=== PATIENT | male | born 2000 | race Caucasian/White ===

== ENCOUNTER 2021-09-18 12:16 | Inpatient (IN) ==
[2021-09-18 14:20] LABS: Hematocrit (blood only) 49.4 % (42-52); Hemoglobin 17.1 g/dL (14.0-18.0); Mean Corpuscular Hemoglobin 31.1 pg (25-34); Mean Corpuscular Hgb Conc 34.6 g/dL (32-36); Mean Platelet Volume 9.1 fL (7.4-10.4); Platelet Count 240 K/uL (130-400); RDW Coefficient of Variation 12.2 % (11.5-14.5); RDW Standard Deviation 40.4 fL (36.4-46.3); Red Blood Count 5.49 M/uL (4.7-6.1); White Blood Count 5.19 K/uL (4.8-10.8)
[2021-09-18 14:45] LABS: Albumin Level 4.3 gm/dl (3.4-5.0); BUN Creatinine Ratio 15.5 (10-20); Basophils # (auto) 0.03 K/uL (0-0.2); Basophils % (auto) 0.6 %; Calcium 9.5 mg/dl (8.5-10.1); Creatinine Clr Calc Pharmacy 125.7 ml/min; Eosinophils # (auto) 0.13 K/uL (0-0.5); Eosinophils % (auto) 2.5 %; Est GFR (African American) 145.4 ml/min; Est GFR (Non-African American) 125.4 ml/min; Lymphocytes # (auto) 2.71 K/uL (1.2-3.4); Lymphocytes % (auto) 52.2 %; Monocytes # (auto) 0.28 K/uL (0.11-0.59); Monocytes % (auto) 5.4 %; Neutrophils # (auto) 2.04 K/uL (1.4-6.5); Neutrophils % (auto) 39.3 %
[2021-09-18 14:50] LABS: Amphetamines+Metham, Urine Neg (Neg); Barbiturates, Urine Neg (Neg); Benzodiazepine, Urine Neg (Neg); Cocaine, Urine Neg (Neg); MDMA (Ecstacy), Urine Neg (Neg); Methadone, Urine Neg (Neg); Opiate, Urine Neg (Neg); Phencyclidine, Urine Neg (Neg)
[2021-09-18 14:55] LABS: Appearance Urine Turbid (Clear); Bacteria Urine Automated Negative (Negative); Bilirubin Urine Negative (Negative); Blood Urine Negative (Negative); Color Urine Yellow; Glucose Urine UA Negative (Negative); Ketones Urine Negative (Negative); Leukocyte Esterase Urine Negative (Negative); Nitrite Urine Negative (Negative); Protein Urine Negative (Negative); RBC Urine Automated 0-4 /hpf (0-4); Urobilinogen Urine Negative (Negative); pH Urine 8.5 (4.5-7.5)
[2021-09-18 14:55] LABS: Albumin Globulin Ratio 1.2 (0.9-2); Bilirubin,Total 0.6 mg/dl (0.2-1); Globulin 3.7 gm/dl (2.5-4.0); Thyroid Stimulating Hormone 0.877 uIu/ml (0.300-4.500)
[2021-09-18 15:26] LABS: Acetaminophen < 2 ug/ml (10-30)
[2021-09-18 15:27] LABS: Salicylate < 1.7 mg/dl (2.8-20)
--- NOTE | 2021-09-18 15:42 | Emergency Department Note ---
Impression & Plan Depression with suicidal ideation ED Provider Note Provider: Mathew Meléndez MD DATE OF SERVICE: 09/18/2021 CHIEF COMPLAINT: Suicide attempt, depression HISTORY OF PRESENT ILLNESS: Patient is a 21-year-old gentleman history of anxiety depression reporting issues over the past several years. [employer] student. States some stress from class as well as other issues and he attempted to hang himself last night. Patient reports that he got his belt and wanted the shower and was testing to see if he could hang himself there. Patient states he then called out to a friend who came and was with him and he did not proceed further. Patient states he done little bit of self cutting on his wrist this was minimal and has a minimal history of this. Patient relays a history of suicide attempt in the past but no history of inpatient psychiatric treatment. Patient does currently have an outpatient psychiatrist and therapist. Patient states he does not have any homicidal thoughts or hallucinations. Patient reports that he did not feel safe today so called his mother has been with him t daphne. Patient states he does not feel safe to be alone and believes he needs inpatient treatment. Patient states he was sleeping more than normal and school is not going well at the current time. REVIEW OF SYSTEMS: A total of 10 review of systems was obtained and negative except as stated above in the HPI. PAST MEDICAL HISTORY: As noted above MEDICATIONS: Effexor, Zyrtec SOCIAL HISTORY: [employer] [facility] student, denies drug or alcohol use PHYSICAL EXAM: GENERAL: alert and oriented in no acute distress on stretcher Head: normocephalic and atraumatic EYES: No injection, discharge or icterus. NECK: Trachea midline. Supple without crepitus, tenderness, or contusion. No bruit appreciated. ENT: Mucous membranes pink and moist. LUNGS: Airway patent. No retractions. Breath sounds clear HEART: Regular rate and rhythm. No chest wall tenderness SKIN: Acyanotic, warm, dry, without rashes EXTREMITIES: Without swelling, tenderness or deformity NEUROLOGICAL: No focal deficits. No aphasia. No facial droop or slurred speech. Ambulatory. Psych: Patient endorses SI but denies HI or hallucinations. Not responding to external stimuli. Mildly flat affect. Patient's laboratory studies and imaging reviewed. Differential includes Mood disorder, infection, hypoglycemia, electrolyte abnormalities, cardiac sources, intracerebral event, toxicologic, trauma, neurologic, as well as other pathologies. IMPRESSION/MEDICAL DECISION MAKING: Patient with plan and asked furtherance last night possible pain but did not proceed with this. No evidence of neck trauma or bruit on exam and it does not sound like he actually had any significant hanging. He is swallowing and talking normally. Basic labs without significant abnormality. Patient wishing for inpatient treatment and I believe is indicated given the severity in light of last night's events. No homicidal ideations reported. Seen with the director of casework services. Inpatient psychiatric referrals will be sent. Do believe there are 3 2 g of the patient does change his mind from voluntary admission. Accepted 3 S. for further inpatient care. DIAGNOSIS: Depression with suicidal ideation DISPOSITION: Accepted 3 S. for further inpatient care. 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 Beliefs That Will Affect Care: None Current Living Situation: Other Current Living Situation Comment: off campus, has roommates Feels Safe at Home: Yes Assistive Devices: Glasses Allergies Allergies Allergy/AdvReac Type Severity Reaction Status Date / Time No Known Allergies Allergy Verified 08/27/20 10:16 Home Meds Home Medications Medication Instructions Recorded Confirmed propranolol 10 mg tablet 10 mg 09/18/21 venlafaxine 75 mg capsule,extended 75 mg PO 09/18/21 release 24 hr (Effexor XR) Results & Data (ED) Vital Signs Vital Signs - 24 hr 09/18/21 12:22 09/18/21 18:40 Temperature 36.5 C Temperature Source Skin Pulse Rate 84 90 Pulse Rhythm Regular Pulse Strength Normal Respiratory Rate 20 20 Respiratory Effort / Characteristics Non-Labored Spontaneous Respiratory Depth Normal Respiratory Pattern Regular Blood Pressure 135/87 124/76 Blood Pressure Mean 103 Pulse Oximetry 98 96 Oxygen Delivery Method Room Air Room Air Sepsis Recent Fever Within 48 Hours No Sepsis New/Unexplained Change in Mental Status N/A Sepsis Action Taken by Nursing No Action Required Laboratory Data Result diagrams: 09/18/21 14:11 09/18/21 14:11 Lab Results 09/18/21 09/18/21 09/18/21 Range/Units 14:11 14:11 14:11 WBC 5.19 (4.8-10.8) K/uL RBC 5.49 (4.7-6.1) M/uL Hgb 17.1 (14.0-18.0) g/dL Hct 49.4 (42-52) % MCV 90.0 (80-100) fL MCH 31.1 (25-34) pg MCHC 34.6 (32-36) g/dL RDW Std Deviation 40.4 (36.4-46.3) fL RDW Coeff of Emil 12.2 (11.5-14.5) % Plt Count 240 (130-400) K/uL MPV 9.1 (7.4-10.4) fL Immature Gran % (Auto) 0.0 % Neut % (Auto) 39.3 % Lymph % (Auto) 52.2 % [place] % (Auto) 5.4 % Eos % (Auto) 2.5 % Baso % (Auto) 0.6 % Neut # (Auto) 2.04 (1.4-6.5) K/uL Lymph # (Auto) 2.71 (1.2-3.4) K/uL [place] # (Auto) 0.28 (0.11-0.59) K/uL Eos # (Auto) 0.13 (0-0.5) K/uL Baso # (Auto) 0.03 (0-0.2) K/uL Immature Gran # (Auto) 0.00 (0.00-0.02) K/uL Sodium 137 (136-145) mmol/L Potassium 4.0 (3.5-5.1) mmol/L Chloride 104 (98-107) mmol/L Carbon Dioxide 27 (21-32) mmol/L Anion Gap 6.0 (3-11) BUN 13 (7-18) mg/dl Creatinine 0.85 (0.6-1.4) mg/dl Est Cr Clr Drug Dosing 125.7 ml/min Est GFR ( Amer) 145.4 ml/min Est GFR (Non-Af Amer) 125.4 ml/min BUN/Creatinine Ratio 15.5 (10-20) Glucose 93 (70-99) mg/dl Calcium 9.5 (8.5-10.1) mg/dl Total Bilirubin 0.6 (0.2-1) mg/dl AST 15 (15-37) U/L ALT 26 (12-78) U/L Alkaline Phosphatase 124 H (45-117) U/L Total Protein 8.0 (6.4-8.2) gm/dl Albumin 4.3 (3.4-5.0) gm/dl Globulin 3.7 (2.5-4.0) gm/dl Albumin/Globulin Ratio 1.2 (0.9-2) TSH 0.877 (0.300-4.500) uIu/ml Urine Color Urine Appearance (Clear) Urine pH (4.5-7.5) Ur Specific [place] (1.000-1.030) Urine Protein (Negative) Urine Glucose (UA) (Negative) Urine Ketones (Negative) Urine Blood (Negative) Urine Nitrite (Negative) Urine Bilirubin (Negative) Urine Urobilinogen (Negative) Ur Leukocyte Esterase (Negative) Urine WBC (Auto) (0-5) /hpf Urine RBC (Auto) (0-4) /hpf U Hyaline Cast (Auto) (0-5) /lpf U Epithel Cells (Auto) (0-5) /lpf Urine Bacteria (Auto) (Negative) Salicylates < 1.7 L (2.8-20) mg/dl Urine Opiates Screen (Neg) Ur Methadone, Qual (Neg) Acetaminophen < 2 L (10-30) ug/ml Urine Barbiturates (Neg) Ur Phencyclidine (PCP) (Neg) U Amphetamin/Meth Scrn (Neg) MDMA (Ecstasy) Screen (Neg) U Benzodiazepines Scrn (Neg) Ur Cocaine Metabolite (Neg) U Marijuana (THC) Screen (Neg) Ethyl Alcohol mg/dL (0-3) mg/dl COVID-19 Eval Order SARS-CoV-2 (PCR) (Negative) 09/18/21 09/18/21 09/18/21 Range/Units 14:11 14:12 14:12 WBC (4.8-10.8) K/uL RBC (4.7-6.1) M/uL Hgb (14.0-18.0) g/dL Hct (42-52) % MCV (80-100) fL MCH (25-34) pg MCHC (32-36) g/dL RDW Std Deviation (36.4-46.3) fL RDW Coeff of Emil (11.5-14.5) % Plt Count (130-400) K/uL MPV (7.4-10.4) fL Immature Gran % (Auto) % Neut % (Auto) % Lymph % (Auto) % [place] % (Auto) % Eos % (Auto) % Baso % (Auto) % Neut # (Auto) (1.4-6.5) K/uL Lymph # (Auto) (1.2-3.4) K/uL [place] # (Auto) (0.11-0.59) K/uL Eos # (Auto) (0-0.5) K/uL Baso # (Auto) (0-0.2) K/uL Immature Gran # (Auto) (0.00-0.02) K/uL Sodium (136-145) mmol/L Potassium (3.5-5.1) mmol/L Chloride (98-107) mmol/L Carbon Dioxide (21-32) mmol/L Anion Gap (3-11) BUN (7-18) mg/dl Creatinine (0.6-1.4) mg/dl Est Cr Clr Drug Dosing ml/min Est GFR ( Amer) ml/min Est GFR (Non-Af Amer) ml/min BUN/Creatinine Ratio (10-20) Glucose (70-99) mg/dl Calcium (8.5-10.1) mg/dl Total Bilirubin (0.2-1) mg/dl AST (15-37) U/L ALT (12-78) U/L Alkaline Phosphatase (45-117) U/L Total Protein (6.4-8.2) gm/dl Albumin (3.4-5.0) gm/dl Globulin (2.5-4.0) gm/dl Albumin/Globulin Ratio (0.9-2) TSH (0.300-4.500) uIu/ml Urine Color Yellow Urine Appearance Turbid A (Clear) Urine pH 8.5 H (4.5-7.5) Ur Specific [place] 1.020 (1.000-1.030) Urine Protein Negative (Negative) Urine Glucose (UA) Negative (Negative) Urine Ketones Negative (Negative) Urine Blood Negative (Negative) Urine Nitrite Negative (Negative) Urine Bilirubin Negative (Negative) Urine Urobilinogen Negative (Negative) Ur Leukocyte Esterase Negative (Negative) Urine WBC (Auto) 1-5 (0-5) /hpf Urine RBC (Auto) 0-4 (0-4) /hpf U Hyaline Cast (Auto) 1-5 (0-5) /lpf U Epithel Cells (Auto) 10-20 H (0-5) /lpf Urine Bacteria (Auto) Negative (Negative) Salicylates (2.8-20) mg/dl Urine Opiates Screen Neg (Neg) Ur Methadone, Qual Neg (Neg) Acetaminophen (10-30) ug/ml Urine Barbiturates Neg (Neg) Ur Phencyclidine (PCP) Neg (Neg) U Amphetamin/Meth Scrn Neg (Neg) MDMA (Ecstasy) Screen Neg (Neg) U Benzodiazepines Scrn Neg (Neg) Ur Cocaine Metabolite Neg (Neg) U Marijuana (THC) Screen Neg (Neg) Ethyl Alcohol mg/dL < 3.0 (0-3) mg/dl COVID-19 Eval Order SARS-CoV-2 (PCR) (Negative) 09/18/21 09/18/21 Range/Units 16:04 16:04 WBC (4.8-10.8) K/uL RBC (4.7-6.1) M/uL Hgb (14.0-18.0) g/dL Hct (42-52) % MCV (80-100) fL MCH (25-34) pg MCHC (32-36) g/dL RDW Std Deviation (36.4-46.3) fL RDW Coeff of Emil (11.5-14.5) % Plt Count (130-400) K/uL MPV (7.4-10.4) fL Immature Gran % (Auto) % Neut % (Auto) % Lymph % (Auto) % [place] % (Auto) % Eos % (Auto) % Baso % (Auto) % Neut # (Auto) (1.4-6.5) K/uL Lymph # (Auto) (1.2-3.4) K/uL [place] # (Auto) (0.11-0.59) K/uL Eos # (Auto) (0-0.5) K/uL Baso # (Auto) (0-0.2) K/uL Immature Gran # (Auto) (0.00-0.02) K/uL Sodium (136-145) mmol/L Potassium (3.5-5.1) mmol/L Chloride (98-107) mmol/L Carbon Dioxide (21-32) mmol/L Anion Gap (3-11) BUN (7-18) mg/dl Creatinine (0.6-1.4) mg/dl Est Cr Clr Drug Dosing ml/min Est GFR ( Amer) ml/min Est GFR (Non-Af Amer) ml/min BUN/Creatinine Ratio (10-20) Glucose (70-99) mg/dl Calcium (8.5-10.1) mg/dl Total Bilirubin (0.2-1) mg/dl AST (15-37) U/L ALT (12-78) U/L Alkaline Phosphatase (45-117) U/L Total Protein (6.4-8.2) gm/dl Albumin (3.4-5.0) gm/dl Globulin (2.5-4.0) gm/dl Albumin/Globulin Ratio (0.9-2) TSH (0.300-4.500) uIu/ml Urine Color Urine Appearance (Clear) Urine pH (4.5-7.5) Ur Specific [place] (1.000-1.030) Urine Protein (Negative) Urine Glucose (UA) (Negative) Urine Ketones (Negative) Urine Blood (Negative) Urine Nitrite (Negative) Urine Bilirubin (Negative) Urine Urobilinogen (Negative) Ur Leukocyte Esterase (Negative) Urine WBC (Auto) (0-5) /hpf Urine RBC (Auto) (0-4) /hpf U Hyaline Cast (Auto) (0-5) /lpf U Epithel Cells (Auto) (0-5) /lpf Urine Bacteria (Auto) (Negative) Salicylates (2.8-20) mg/dl Urine Opiates Screen (Neg) Ur Methadone, Qual (Neg) Acetaminophen (10-30) ug/ml Urine Barbiturates (Neg) Ur Phencyclidine (PCP) (Neg) U Amphetamin/Meth Scrn (Neg) MDMA (Ecstasy) Screen (Neg) U Benzodiazepines Scrn (Neg) Ur Cocaine Metabolite (Neg) U Marijuana (THC) Screen (Neg) Ethyl Alcohol mg/dL (0-3) mg/dl COVID-19 Eval Order Covid19 at [facility] SARS-CoV-2 (PCR) NEGATIVE (Negative) Discharge Plan Visit Data Chief Complaint: Mental Health Evaluation Stated Complaint: MENTAL HEALTH EVAL ED Provider: Mathew Meléndez Discharge Problem: Depression with suicidal ideation Patient Disposition: Admitted As Inpatient Discharge Instructions Interventions: ED Discharge Assessment Last Done: 09/18/21 18:59
[2021-09-18] MEDS ORDERED: hydrOXYzine HCl 25 MG TAB PO PRN (18:14)
[2021-09-18] MEDS ORDERED: ALUMINUM/MAGNESIUM SUSP 30 ML UDC PO PRN (18:14)
[2021-09-18] MEDS ORDERED: ACETAMINOPHEN 325 MG TAB PO PRN (18:14)
[2021-09-18] MEDS ORDERED: BISMUTH SUBSALICYLATE LIQD 236 ML PO PRN (18:14)
[2021-09-18] MEDS ORDERED: MAGNESIUM HYDROXIDE SUSP 30 ML UDC PO PRN (18:14)
[2021-09-18] MEDS ORDERED: SODIUM CHLORIDE 0.65% NA SOLN 45 ML (OCEAN) PRN (18:14)
[2021-09-18] MEDS ORDERED: FLUARIX QUADRIVALENT 0.5 ML SYR IM ONE (20:33)
[2021-09-19] MEDS ORDERED: PROPRANOLOL HCL 10 MG TAB PO PRN (10:40)
[2021-09-19] MEDS: VENLAFAXINE HCL XR 37.5 MG CAPXR PO SCH (11:29)
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
[2021-09-19] MEDS: hydrOXYzine HCl 25 MG TAB PO PRN (22:02)
[2021-09-20] MEDS: VENLAFAXINE HCL XR 37.5 MG CAPXR PO SCH (08:56)
--- NOTE | 2021-09-20 16:19 | Psychiatric Progress Note ---
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 He has perfectionistic tendencies and conflictual relationship with his father with some criteria for post traumatic stress disorder and concentration difficulties that predate depression that could suggest ADHD but would need to be reassessed on an outpatient basis when recovered from this depressive episode. Diagnostically consistent with MDD and so far tolerating Effexor XR titration. (1) Depression with suicidal ideation: 09/20/21: Increase Effexor XR from 112.5 mg to 150 mg tomorrow morning. Discussed coping skills he can use to manage urges for self-harm including talking to staff. Feels safe on the unit. 09/19/21: The patient was admitted to the [facility] ([facility] mental health unit) on q15 min checks (behavioral with suicide precautions) for safety. The patient will participate in group, recreational, and milieu therapies and will be offered additional individual and family sessions as clinically appropriate. Risks/benefits/alternatives reviewed re: antidepressants for the treatment of depression and/or anxiety. Discussion included but was not limited to FDA warnings re: suicidality in adolescents and young adults. The patient agreed to titrate Effexor XR to 112.5 mg starting today with goal of 150 mg prior to discharge. 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 Chief Complaint "I'm settling in". Review of Systems Sleep Information Total Hours of Sleep: 6.75 Meal Information Percent Meal Consumed - Breakfast: 80 Percent Meal Consumed - Lunch: 80 Percent Meal Consumed - Dinner: 100 Subjective Subjective Patient was seen & assessed and interval progress reviewed with treatment team nursing and social work. He continues to feel depressed with urges to self-harm but has been able to avoid acting on these urges while in the hospital. Using distraction to help with this, also discussed that he could use atarax prn. Tolerating the Effexor well so far and agreeable to increasing the dose starting tomorrow. No current side effects. Physical Exam Psychiatric Orientation: alert and oriented x 3 Apperance: appropriately dressed and appropriately groomed Eye Contact: good eye contact Motor Behavior: no abnormal motor movements Speech: normal rate/rhythm/volume of speech Affect: + depressed affect Mood: + depressed mood Thought Process: goal directed thought process Thought Content: reality based without delusions Suicidal Thoughts: denies suicidal intent; + reports suicidal thoughts and + r eports suicidal plan (cut or hang) Homicidal Thoughts: denies homicidal thoughts Hallucinations: no auditory hallucinations and no visual hallucinations Cognition: attention grossly intact and language grossly intact Estimated Intelligence: consistent with education level Insight: + fair insight Judgement: + fair judgement Vital Signs (Past 24 Hours) Last Vital Signs Temp 36.9 C 09/20/21 06:00 Pulse 75 09/20/21 06:41 Resp 16 09/20/21 06:00 BP 110/75 09/20/21 06:41 Pulse Ox 96 09/18/21 18:40 Results & Data ([facility]) Current Inpatient Medications Current Inpatient Medications: Current Inpatient Medications Acetaminophen (Acetaminophen 325 Mg Tab) 650 mg PO Q4H PRN PRN Reason: Headache or Minor Fever Stop: 10/18/21 18:13 Al Hydrox/Mg Hydrox/Simethicone (Aluminum/Magnesium Susp 30 Ml Udc) 30 ml PO Q4H PRN PRN Reason: GI Upset Stop: 10/18/21 18:13 Bismuth Subsalicylate (Bismuth Subsalicylate Liqd 236 Ml) 15 ml PO PRN PRN PRN Reason: Loose Stool Stop: 10/18/21 18:13 Hydroxyzine HCl (Hydroxyzine Hcl 25 Mg Tab) 50 mg PO HSZ PRN PRN Reason: Insomnia Stop: 10/18/21 18:13 Last Admin: 09/19/21 22:02 Dose: 50 mg Documented by: Hydroxyzine HCl (Hydroxyzine Hcl 25 Mg Tab) 25 mg PO Q4H PRN PRN Reason: Anxiety Stop: 10/18/21 18:13 Magnesium Hydroxide (Magnesium Hydroxide Susp 30 Ml Udc) 30 ml PO DAILY PRN PRN Reason: Constipation Stop: 10/18/21 18:13 Propranolol HCl (Propranolol Hcl 10 Mg Tab) 10 mg PO DAILY PRN PRN Reason: Anxiety Stop: 10/19/21 10:39 Sodium Chloride (Sodium Chloride 0.65% Na Soln 45 Ml ([place])) 1 - 2 sprays NA PRN PRN PRN Reason: Nasal Dryness/Congestion Stop: 10/18/21 18:13 Venlafaxine HCl (Venlafaxine Hcl Xr 37.5 Mg Capxr) 112.5 mg PO DAILY RUFINA Stop: 10/19/21 10:44 Last Admin: 09/20/21 08:56 Dose: 112.5 mg Documented by: Mental Health & Subst Abuse Tx Psychiatrist Name of Psychiatrist: Jinny Chery at [facility] Psychiatrist's Date of Appointment with Psychiatrist: 09/29/21 Time of Appointment with Psychiatrist: 1:15 pm Psychiatric Appointment Comment: This is an in office appointment Therapist Name of Therapist: Olga Donohue at [facility] Therapist's Date of Therapist Appointment: 09/24/21 Time of Therapist Appointment: 10:30 am [facility] App[facility]ment [facility] [address] [facility] [address], [place] [address] Emr Trainer Name of Emr Trainer: N/A Post Discharge Appointments Primary Care Physician Name Of Family Doctor: Tahira Campbell @ [facility] Primary Care Provider Appointment Comment: [facility] [address], [place] [address] Contact Information Discharge Discharge Address: [address], [place]
[2021-09-20] MEDS: hydrOXYzine HCl 25 MG TAB PO PRN (22:32)
[2021-09-21] MEDS: VENLAFAXINE HCL XR 150 MG CAPXR PO SCH (08:50)
--- NOTE | 2021-09-21 15:01 | Psychiatric Progress Note ---
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 He has perfectionistic tendencies and conflictual relationship with his father with some criteria for post traumatic stress disorder and concentration difficulties that predate depression that could suggest ADHD but would need to be reassessed on an outpatient basis when recovered from this depressive episode. Diagnostically consistent with MDD and so far tolerating Effexor XR titration. (1) Depression with suicidal ideation: 09/21/21: Continue with Effexor XR 150 mg qd. Continue to practice coping skills and noticing cognitive distortions. Using distraction to manage urges for self-harm. 09/20/21: Increase Effexor XR from 112.5 mg to 150 mg tomorrow morning. Discussed coping skills he can use to manage urges for self-harm including talking to staff. Feels safe on the unit. 09/19/21: The patient was admitted to the [facility] ([facility] mental health unit) on q15 min checks (behavioral with suicide precautions) for safety. The patient will participate in group, recreational, and milieu therapies and will b e offered additional individual and family sessions as clinically appropriate. Risks/benefits/alternatives reviewed re: antidepressants for the treatment of depression and/or anxiety. Discussion included but was not limited to FDA warnings re: suicidality in adolescents and young adults. The patient agreed to titrate Effexor XR to 112.5 mg starting today with goal of 150 mg prior to discharge. 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 Chief Complaint "I'm not having as many urges for self-harm today". Review of Systems Sleep Information Total Hours of Sleep: 6.75 Meal Information Percent Meal Consumed - Breakfast: 90 Percent Meal Consumed - Lunch: 100 Percent Meal Consumed - Dinner: 80 Subjective Subjective Patient was seen & assessed and interval progress reviewed with treatment team nursing and social work. Giles struggled last night with increased anxiety and strong urges for self-harm. He responded well to 1-on-1 support with discussion of cognitive distortions and strategies to change negative thoughts. Today he reports reduction in urges for self-harm. Continues to have depressed mood. Tolerating Effexor XR well so far without any side effects. Notes he felt some somatic symptoms last night but believes these were due to the high anxiety and panic attack rather than from the Effexor. Physical Exam Psychiatric Orientation: alert and oriented x 3 Apperance: appropriately dressed and appropriately groomed Eye Contact: good eye contact Motor Behavior: no abnormal motor movements Speech: normal rate/rhythm/volume of speech Affect: + depressed affect Mood: + depressed mood Thought Process: goal directed thought process Thought Content: reality based without delusions Suicidal Thoughts: denies suicidal thoughts Homicidal Thoughts: denies homicidal thoughts Hallucinations: no auditory hallucinations and no visual hallucinations Cognition: attention grossly intact and language grossly intact Estimated Intelligence: consistent with education level Insight: + fair insight Judgement: + fair judgement Vital Signs (Past 24 Hours) Last Vital Signs Temp 36.4 C L 09/21/21 06:00 Pulse 71 09/21/21 06:33 Resp 16 09/21/21 06:00 BP 107/75 09/21/21 06:33 Pulse Ox 96 09/20/21 18:06 Results & Data ([facility]) Current Inpatient Medications Current Inpatient Medications: Current Inpatient Medications Acetaminophen (Acetaminophen 325 Mg Tab) 650 mg PO Q4H PRN PRN Reason: Headache or Minor Fever Stop: 10/18/21 18:13 Al Hydrox/Mg Hydrox/Simethicone (Aluminum/Magnesium Susp 30 Ml Udc) 30 ml PO Q4H PRN PRN Reason: GI Upset Stop: 10/18/21 18:13 Bismuth Subsalicylate (Bismuth Subsalicylate Liqd 236 Ml) 15 ml PO PRN PRN PRN Reason: Loose Stool Stop: 10/18/21 18:13 Hydroxyzine HCl (Hydroxyzine Hcl 25 Mg Tab) 50 mg PO HSZ PRN PRN Reason: Insomnia Stop: 10/18/21 18:13 Last Admin: 09/20/21 22:32 Dose: 50 mg Documented by: Hydroxyzine HCl (Hydroxyzine Hcl 25 Mg Tab) 25 mg PO Q4H PRN PRN Reason: Anxiety Stop: 10/18/21 18:13 Last Admin: 09/20/21 17:58 Dose: 25 mg Documented by: Magnesium Hydroxide (Magnesium Hydroxide Susp 30 Ml Udc) 30 ml PO DAILY PRN PRN Reason: Constipation Stop: 10/18/21 18:13 Propranolol HCl (Propranolol Hcl 10 Mg Tab) 10 mg PO DAILY PRN PRN Reason: Anxiety Stop: 10/19/21 10:39 Last Admin: 09/20/21 18:23 Dose: 10 mg Documented by: Sodium Chloride (Sodium Chloride 0.65% Na Soln 45 Ml ([place])) 1 - 2 sprays NA P RN PRN PRN Reason: Nasal Dryness/Congestion Stop: 10/18/21 18:13 Venlafaxine HCl (Venlafaxine Hcl Xr 150 Mg Capxr) 150 mg PO QAM RUFINA Stop: 10/21/21 08:59 Last Admin: 09/21/21 08:50 Dose: 150 mg Documented by: Mental Health & Subst Abuse Tx Psychiatrist Name of Psychiatrist: Jinny Chery at [facility] Psychiatrist's Date of Appointment with Psychiatrist: 09/29/21 Time of Appointment with Psychiatrist: 1:15 pm Psychiatric Appointment Comment: This is an in office appointment Therapist Name of Therapist: Olga Donohue at [facility] The[facility]'s Date of Therapist Appointment: 09/24/21 Time of Therapist Appointment: 10:30 am Therapy Appointment Comment: [address], [place] [address] Box Shook Patcher Name of Box Shook Patcher: N/A Post Discharge Appointments Primary Care Physician Name Of Family Doctor: Tahira Campbell @ [facility] Primary Care Provider Appointment Comment: [address], [place] [address] Contact Information Discharge Discharge Address: [address], [facility] [address], [place]
[2021-09-21] MEDS: hydrOXYzine HCl 25 MG TAB PO PRN (22:49)
[2021-09-22] MEDS: VENLAFAXINE HCL XR 150 MG CAPXR PO SCH (08:37)
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
[2021-09-22] MEDS: hydrOXYzine HCl 25 MG TAB PO PRN (22:16)
[2021-09-23] MEDS: VENLAFAXINE HCL XR 150 MG CAPXR PO SCH (08:26)
--- NOTE | 2021-09-23 16:34 | Psychiatric Progress Note ---
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 He has perfectionistic tendencies and conflictual relationship with his father with some criteria for post traumatic stress disorder and concentration difficulties that predate depression that could suggest ADHD but would need to be reassessed on an outpatient basis when recovered from this depressive episode. Working to process past trauma and developing coping skills to resist urges for self-harm. Diagnostically consistent with MDD and so far tolerating Effexor XR titration. 09/23/21: Discussed adding mirtazapine for help with sleep and potential benefit for reducing morning-time anxiety. He would like to try this. Discussed risks, benefits, alternatives including sedation and increased appetite. (1) Depression with suicidal ideation: 09/23/21: Continue Effexor XR 150mg qd. Start mirtazapine 7.5 mg qHS for insomnia. 09/22/21: continue Effexor XR 150 mg qd. Processed some of the impacts of trauma and his ability to vocalize this during his family meeting. Continues to work on coping skills to avoid self-harm and reviewed some of these strategies and coping thoughts he can continue to practice. 09/21/21: Continue with Effexor XR 150 mg qd. Continue to practice coping skills and noticing cognitive distortions. Using distraction to manage urges for self- harm. 09/20/21: Increase Effexor XR from 112.5 mg to 150 mg tomorrow morning. Discussed coping skills he can use to manage urges for self-harm including talking to staff. Feels safe on the unit. 09/19/21: The patient was admitted to the [facility] ([facility]) on q15 min checks (behavioral with suicide precautions) for safety. The patient will participate in group, recreational, and milieu therapies and will be offered additional individual and family sessions as clinically appropriate. Risks/benefits/alternatives reviewed re: antidepressants for the treatment of depression and/or anxiety. Discussion included but was not limited to FDA warnings re: suicidality in adolescents and young adults. The patient agreed to titrate Effexor XR to 112.5 mg starting today with goal of 150 mg prior to discharge. 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 Chief Complaint "I'm stable today". Review of Systems Sleep Information Total Hours of Sleep: 6.5 Sleep Comments: pt given vistaril per rn. pt on q-15 minute checks Meal Information Percent Meal Consumed - Breakfast: 100 Percent Meal Consumed - Lunch: 100 Percent Meal Consumed - Dinner: 100 Subjective Subjective Patient was seen & assessed and interval progress reviewed with treatment team nursing and social work. Continues to have difficulty falling asleep and increased anxiety in the morning. No side effects from Effexor. Feels he is doing well processing the trauma that emerged during yesterday's family meeting and the fact that with anxiety he has not had any urges to self-harm. No SI. Physical Exam Psychiatric Orientation: alert and oriented x 3 Apperance: appropriately dressed and appropriately groomed Eye Contact: good eye contact Motor Behavior: no abnormal motor movements Speech: normal rate/rhythm/volume of speech Affect: + anxious affect Mood: + depressed mood and + anxious mood Thought Process: goal directed thought process Thought Content: reality based without delusions Suicidal Thoughts: denies suicidal thoughts Homicidal Thoughts: denies homicidal thoughts Hallucinations: no auditory hallucinations and no visual hallucinations Cognition: attention grossly intact and language grossly intact Estimated Intelligence: consistent with education level Insight: + fair insight Judgement: + fair judgement Vital Signs (Past 24 Hours) Last Vital Signs Temp 36.5 C 09/23/21 06:46 Pulse 75 09/23/21 06:47 Resp 16 09/23/21 06:46 BP 117/79 09/23/21 06:47 Pulse Ox 96 09/20/21 18:06 Results & Data ([facility]) Current Inpatient Medications Current Inpatient Medications: Current Inpatient Medications Acetaminophen (Acetaminophen 325 Mg Tab) 650 mg PO Q4H PRN PRN Reason: Headache or Minor Fever Stop: 10/18/21 18:13 Al Hydrox/Mg Hydrox/Simethicone (Aluminum/Magnesium Susp 30 Ml Udc) 30 ml PO Q4H PRN PRN Reason: GI Upset Stop: 10/18/21 18:13 Bismuth Subsalicylate (Bismuth Subsalicylate Liqd 236 Ml) 15 ml PO PRN PRN PRN Reason: Loose Stool Stop: 10/18/21 18:13 Hydroxyzine HCl (Hydroxyzine Hcl 25 Mg Tab) 50 mg PO HSZ PRN PRN Reason: Insomnia Stop: 10/18/21 18:13 Last Admin: 09/22/21 22:16 Dose: 50 mg Documented by: Hydroxyzine HCl (Hydroxyzine Hcl 25 Mg Tab) 25 mg PO Q4H PRN PRN Reason: Anxiety Stop: 10/18/21 18:13 Last Admin: 09/20/21 17:58 Dose: 25 mg Documented by: Magnesium Hydroxide (Magnesium Hydroxide Susp 30 Ml Udc) 30 ml PO DAILY PRN PRN Reason: Constipation Stop: 10/18/21 18:13 Propranolol HCl (Propranolol Hcl 10 Mg Tab) 10 mg PO DAILY PRN PRN Reason: Anxiety Stop: 10/19/21 10:39 Last Admin: 09/20/21 18:23 Dose: 10 mg Documented by: Sodium Chloride (Sodium Chloride 0.65% Na Soln 45 Ml ([place])) 1 - 2 sprays NA PRN PRN PRN Reason: Nasal Dryness/Congestion Stop: 10/18/21 18:13 Venlafaxine HCl (Venlafaxine Hcl Xr 150 Mg Capxr) 150 mg PO QAM RUFINA Stop: 10/21/21 08:59 Last Admin: 09/23/21 08:26 Dose: 150 mg Documented by: Mental Health & Subst Abuse Tx Psychiatrist Name of Psychiatrist: Jinny Chery at [facility] Psychiatrist's Date of Appointment with Psychiatrist: 09/29/21 Time of Appointment with Psychiatrist: 1:15 pm Psychiatric Appointment Comment: This is an in office appointment Therapist Name of Therapist: Olga Donohue at [facility]'s Date of Therapist Appointment: 09/24/21 Time of Therapist Appointment: 10:30 am Therapy Appointment Comment: [address] [facility] [address], [place], [place] [address] Flexo Operator Name of Flexo Operator: N/A Post Discharge Appointments Primary Care Physician Name Of Family Doctor: Tahira Campbell @ [facility] Primary Care Provider Appointment Comment: [address], [place] [address] Contact Information Discharge Discharge Address: [address], [place]
[2021-09-23] MEDS: MIRTAZAPINE TAB 15 MG TAB PO SCH (22:05)
[2021-09-24] MEDS: VENLAFAXINE HCL XR 150 MG CAPXR PO SCH (09:46)
--- NOTE | 2021-09-24 15:51 | Psychiatric Progress Note ---
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 He has perfectionistic tendencies and conflictual relationship with his father with some criteria for post traumatic stress disorder and concentration difficulties that predate depression that could suggest ADHD but would need to be reassessed on an outpatient basis when recovered from this depressive episode. Working to process past trauma and developing coping skills to resist urges for self-harm. Diagnostically consistent with MDD and so far tolerating Effexor XR titration. 09/24/21: Tolerating initial dose of mirtazapine, will plan to titrate if tolerated well again tonight. Showing slow improvement in mood and some reduction in SI and self-harm urges. (1) Depression with suicidal ideation: 09/24/21: Continue Effexor XR and mirtazapine 7.5 mg qhs. 09/23/21: Continue Effexor XR 150mg qd. Start mirtazapine 7.5 mg qHS for insomnia. 09/22/21: continue Effexor XR 150 mg qd. Processed some of the impacts of trauma and his ability to vocalize this during his family meeting. Continues to work on coping skills to avoid self-harm and reviewed some of these strategies and coping thoughts he can continue to practice. 09/21/21: Continue with Effexor XR 150 mg qd. Continue to practice coping skills and noticing cognitive distortions. Using distraction to manage urges for self- harm. 09/20/21: Increase Effexor XR from 112.5 mg to 150 mg tomorrow morning. Discussed coping skills he can use to manage urges for self-harm including talking to staff. Feels safe on the unit. 09/19/21: The patient was admitted to the [facility] ([facility] unit) on q15 min checks (behavioral with suicide precautions) for safety. The patient will participate in group, recreational, and milieu therapies and will be offered additional individual and family sessions as clinically appropriate. Risks/benefits/alternatives reviewed re: antidepressants for the treatment of depression and/or anxiety. Discussion included but was not limited to FDA warnings re: suicidality in adolescents and young adults. The patient agreed to titrate Effexor XR to 112.5 mg starting today with goal of 150 mg prior to discharge. 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 Chief Complaint "pretty good". Review of Systems Sleep Information Total Hours of Sleep: 6.5 Sleep Comments: pt on q-15 minute checks Meal Information Percent Meal Consumed - Breakfast: 100 Percent Meal Consumed - Lunch: 100 Percent Meal Consumed - Dinner: 90 Subjective Subjective Patient was seen & assessed and interval progress reviewed with treatment team nursing and social work. He has been actively engaging in groups. Reports good sleep last night with addition of mirtazapine. No side effects from mirtazapine nor effexor. [place] less anxious this morning. Continues to have urges for self- harm, using distraction. Physical Exam Psychiatric Orientation: alert and oriented x 3 Apperance: appropriately dressed and appropriately groomed Eye Contact: good eye contact Motor Behavior: no abnormal motor movements Speech: normal rate/rhythm/volume of speech Affect: + depressed affect and + anxious affect Mood: + depressed mood and + anxious mood Thought Process: goal directed thought process Thought Content: reality based without delusions Suicidal Thoughts: denies suicidal thoughts Homicidal Thoughts: denies homicidal thoughts Hallucinations: no auditory hallucinations and no visual hallucinations Cognition: attention grossly intact and language grossly intact Estimated Intelligence: consistent with education level Insight: + fair insight Judgement: + fair judgement Vital Signs (Past 24 Hours) Last Vital Signs Temp 36.6 C 09/24/21 06:46 Pulse 82 09/24/21 06:47 Resp 16 09/24/21 06:46 BP 122/83 09/24/21 06:47 Pulse Ox 96 09/20/21 18:06 Results & Data ([facility]) Current Inpatient Medications Current Inpatient Medications: Current Inpatient Medications Acetaminophen (Acetaminophen 325 Mg Tab) 650 mg PO Q4H PRN PRN Reason: Headache or Minor Fever Stop: 10/18/21 18:13 Al Hydrox/Mg Hydrox/Simethicone (Aluminum/Magnesium Susp 30 Ml Udc) 30 ml PO Q4H PRN PRN Reason: GI Upset Stop: 10/18/21 18:13 Bismuth Subsalicylate (Bismuth Subsalicylate Liqd 236 Ml) 15 ml PO PRN PRN PRN Reason: Loose Stool Stop: 10/18/21 18:13 Hydroxyzine HCl (Hydroxyzine Hcl 25 Mg Tab) 50 mg PO HSZ PRN PRN Reason: Insomnia Stop: 10/18/21 18:13 Last Admin: 09/22/21 22:16 Dose: 50 mg Documented by: Hydroxyzine HCl (Hydroxyzine Hcl 25 Mg Tab) 25 mg PO Q4H PRN PRN Reason: Anxiety Stop: 10/18/21 18:13 Last Admin: 09/20/21 17:58 Dose: 25 mg Documented by: Magnesium Hydroxide (Magnesium Hydroxide Susp 30 Ml Udc) 30 ml PO DAILY PRN PRN Reason: Constipation Stop: 10/18/21 18:13 Mirtazapine (Mirtazapine Tab 15 Mg Tab) 7.5 mg PO HS RUFINA Stop: 10/23/21 21:59 Last Admin: 09/23/21 22:05 Dose: 7.5 mg Documented by: Propranolol HCl (Propranolol Hcl 10 Mg Tab) 10 mg PO DAILY PRN PRN Reason: Anxiety Stop: 10/19/21 10:39 Last Admin: 09/20/21 18:23 Dose: 10 mg Documented by: Sodium Chloride (Sodium Chloride 0.65% Na Soln 45 Ml ([place])) 1 - 2 sprays NA PRN PRN PRN Reason: Nasal Dryness/Congestion Stop: 10/18/21 18:13 Venlafaxine HCl (Venlafaxine Hcl Xr 150 Mg Capxr) 150 mg PO QAM RUFINA Stop: 10/21/21 08:59 Last Admin: 09/24/21 09:46 Dose: 150 mg Documented by: Mental Health & Subst Abuse Tx Psychiatrist Name of Psychiatrist: Jinny Chery at [facility] Psychiatrist's Date of Appointment with Psychiatrist: 09/29/21 Time of Appointment with Psychiatrist: 1:15 pm Psychiatric Appointment Comment: This is an in office appointment Therapist Name of Therapist: Olga Donohue at [facility] Therapist's Date of Therapist Appointment: 10/01/21 Time of Therapist Appointment: 10:30 am Therapy Appointment Comment: [address] [facility] [address], [place] [address] Light Out Examiner Name of Light Out Examiner: N/A Post Discharge Appointments Primary Care Physician Name Of Family Doctor: Tahira Campbell @ [facility] Primary Care Provider Appointment Comment: [address], [place] [address] Contact Information Discharge Discharge Address: [address] [place] [address], [place] [address], [place]
[2021-09-24] MEDS: MIRTAZAPINE TAB 15 MG TAB PO SCH (21:40)
[2021-09-25] MEDS: VENLAFAXINE HCL XR 150 MG CAPXR PO SCH (09:25)
--- NOTE | 2021-09-25 10:07 | Psychiatric Progress Note ---
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 He has perfectionistic tendencies and conflictual relationship with his father with some criteria for post traumatic stress disorder and concentration difficulties that predate depression that could suggest ADHD but would need to be reassessed on an outpatient basis when recovered from this depressive episode. Working to process past trauma and developing coping skills to resist urges for self-harm. Diagnostically consistent with MDD and so far tolerating Effexor XR titration. 09/25/21: Increasing mirtazapine to further target mood symptoms and insomnia. Showing improvement in mood and reduction in frequency of self-harm urges. (1) Depression with suicidal ideation: 09/25/21: Continue Effexor R 150mg qd. Increase mirtazapine to 15 mg qhs. 09/24/21: Continue Effexor XR and mirtazapine 7.5 mg qhs. 09/23/21: Continue Effexor XR 150mg qd. Start mirtazapine 7.5 mg qHS for insomnia. 09/22/21: continue Effexor XR 150 mg qd. Processed some of the impacts of trauma and his ability to vocalize this during his family meeting. Continues to work on coping skills to avoid self-harm and reviewed some of these strategies and coping thoughts he can continue to practice. 09/21/21: Continue with Effexor XR 150 mg qd. Continue to practice coping skills and noticing cognitive distortions. Using distraction to manage urges for self- harm. 09/20/21: Increase Effexor XR from 112.5 mg to 150 mg tomorrow morning. Disc ussed coping skills he can use to manage urges for self-harm including talking to staff. Feels safe on the unit. 09/19/21: [facility] on q15 min checks (behavioral with suicide precautions) for safety. The patient will participate in group, recreational, and milieu therapies and will be offered additional individual and family sessions as clinically appropriate. Risks/benefits/alternatives reviewed re: antidepressants for the treatment of depression and/or anxiety. Discussion included but was not limited to FDA warnings re: suicidality in adolescents and young adults. The patient agreed to titrate Effexor XR to 112.5 mg starting today with goal of 150 mg prior to discharge. 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 Chief Complaint "I'm ok". Review of Systems Sleep Information Total Hours of Sleep: 6.75 Sleep Comments: pt on q-15 minute checks Meal Information Percent Meal Consumed - Breakfast: 100 Percent Meal Consumed - Lunch: 100 Percent Meal Consumed - Dinner: 100 Subjective Subjective Patient was seen & assessed and interval progress reviewed with treatment team nursing and social work. [place] remains engaged with groups. Endorses ongoing anxiety especially related to school and work that has piled up and awaits him. Denies SI and decreasing frequency of self-harm urges. No medication side effects. Didn't sleep as well last night. Interested in trying the higher dose of mirtazapine. Reviewed that he can attend his therapy session scheduled for next week during break virtually via teletherapy option. Physical Exam Psychiatric Orientation: alert and oriented x 3 Apperance: appropriately dressed and appropriately groomed Eye Contact: good eye contact Motor Behavior: no abnormal motor movements Speech: normal rate/rhythm/volume of speech Affect: + anxious affect Mood: + anxious mood Thought Process: goal directed thought process Thought Content: reality based without delusions Suicidal Thoughts: denies suicidal thoughts Homicidal Thoughts: denies homicidal thoughts Hallucinations: no auditory hallucinations and no visual hallucinations Cognition: attention grossly intact and language grossly intact Estimated Intelligence: consistent with education level Insight: + fair insight Judgement: + fair judgement Vital Signs (Past 24 Hours) Last Vital Signs Temp 36.6 C 09/25/21 06:00 Pulse 88 09/25/21 06:36 Resp 14 09/25/21 06:00 BP 107/74 09/25/21 06:36 Pulse Ox 96 09/20/21 18:06 Results & Data ([facility]) Current Inpatient Medications Current Inpatient Medications: Current Inpatient Medications Acetaminophen (Acetaminophen 325 Mg Tab) 650 mg PO Q4H PRN PRN Reason: Headache or Minor Fever Stop: 10/18/21 18:13 Al Hydrox/Mg Hydrox/Simethicone (Aluminum/Magnesium Susp 30 Ml Udc) 30 ml PO Q4H PRN PRN Reason: GI Upset Stop: 10/18/21 18:13 Bismuth Subsalicylate (Bismuth Subsalicylate Liqd 236 Ml) 15 ml PO PRN PRN PRN Reason: Loose Stool Stop: 10/18/21 18:13 Hydroxyzine HCl (Hydroxyzine Hcl 25 Mg Tab) 50 mg PO HSZ PRN PRN Reason: Insomnia Stop: 10/18/21 18:13 Last Admin: 09/22/21 22:16 Dose: 50 mg Documented by: Hydroxyzine HCl (Hydroxyzine Hcl 25 Mg Tab) 25 mg PO Q4H PRN PRN Reason: Anxiety Stop: 10/18/21 18:13 Last Admin: 09/20/21 17:58 Dose: 25 mg Documented by: Magnesium Hydroxide (Magnesium Hydroxide Susp 30 Ml Udc) 30 ml PO DAILY PRN PRN Reason: Constipation Stop: 10/18/21 18:13 Mirtazapine (Mirtazapine Tab 15 Mg Tab) 7.5 mg PO HS RUFINA Stop: 10/23/21 21:59 Last Admin: 09/24/21 21:40 Dose: 7.5 mg Documented by: Propranolol HCl (Propranolol Hcl 10 Mg Tab) 10 mg PO DAILY PRN PRN Reason: Anxiety Stop: 10/19/21 10:39 Last Admin: 09/20/21 18:23 Dose: 10 mg Documented by: Sodium Chloride (Sodium Chloride 0.65% Na Soln 45 Ml ([place])) 1 - 2 sprays NA PRN PRN PRN Reason: Nasal Dryness/Congestion Stop: 10/18/21 18:13 Venlafaxine HCl (Venlafaxine Hcl Xr 150 Mg Capxr) 150 mg PO QAM RUFINA Stop: 10/21/21 08:59 Last Admin: 09/25/21 09:25 Dose: 150 mg Documented by: Mental Health & Subst Abuse Tx Psychiatrist Name of Psychiatrist: Jinny Chery at [facility] Psychiatrist's Date of Appointment with Psychiatrist: 09/29/21 Time of Appointment with Psychiatrist: 1:15 pm Psychiatric Appointment Comment: This is an in office appointment Therapist Name of Therapist: Olga Donohue at [facility] Therapist's Date of Therapist Appointment: 10/01/21 Time of Therapist Appointment: 10:30 am Therapy Appointment Comment: [address], [place], [place] [address] Construction Executive Name of Construction Executive: N/A Post Discharge Appointments Primary Care Physician Name Of Family Doctor: Tahira Campbell @ [facility] Primary Care Provider Appointment Comment: [facility], [place] [address] Contact Information Discharge Discharge Address: [address], [address], [place]
[2021-09-25] MEDS: MIRTAZAPINE TAB 15 MG TAB PO SCH (22:12)
[2021-09-26] MEDS: VENLAFAXINE HCL XR 150 MG CAPXR PO SCH (08:51)
--- NOTE | 2021-09-26 15:13 | Psychiatric Progress Note ---
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 He has perfectionistic tendencies and conflictual relationship with his father with some criteria for post traumatic stress disorder and concentration difficulties that predate depression that could suggest ADHD but would need to be reassessed on an outpatient basis when recovered from this depressive episode. Working to process past trauma and developing coping skills to resist urges for self-harm. Diagnostically consistent with MDD and so far tolerating Effexor XR titration. 09/26/21: Showing stable improvement in mood and no self-harm urges nor SI. (1) Depression with suicidal ideation: 09/26/21: continue Effexor XR 150 mg qd and mirtazapine 15mg qhs. 09/25/21: Continue Effexor XR 150mg qd. Increase mirtazapine to 15 mg qhs. 09/24/21: Continue Effexor XR and mirtazapine 7.5 mg qhs. 09/23/21: Continue Effexor XR 150mg qd. Start mirtazapine 7.5 mg qHS for insomnia. 09/22/21: continue Effexor XR 150 mg qd. Processed some of the impacts of trauma and his ability to vocalize this during his family meeting. Continues to work on coping skills to avoid self-harm and reviewed some of these strategies and coping thoughts he can continue to practice. 09/21/21: Continue with Effexor XR 150 mg qd. Continue to practice coping skills and noticing cognitive distortions. Using distraction to manage urges for self- harm. 09/20/21: Increase Effexor XR from 112.5 mg to 150 mg tomorrow morning. Discussed coping skills he can use to manage urges for self-harm including talking to staff. Feels safe on the unit. 09/19/21: The patient was [facility] ([facility]) on q15 min checks (behavioral with suicide precautions) for safety. The patient will participate in group, recreational, and milieu therapies and will be offered additional individual and family sessions as clinically appropriate. Risks/benefits/alternatives reviewed re: antidepressants for the treatment of depression and/or anxiety. Discussion included but was not limited to FDA warnings re: suicidality in adolescents and young adults. The patient agreed to titrate Effexor XR to 112.5 mg starting today with goal of 150 mg prior to discharge. 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 Chief Complaint "I'm really good". Review of Systems Sleep Information Total Hours of Sleep: 6 Sleep Comments: pt on q-15 minute checks Meal Information Percent Meal Consumed - Breakfast: 100 Percent Meal Consumed - Lunch: 100 Percent Meal Consumed - Dinner: 90 Subjective Subjective Patient was seen & assessed and interval progress reviewed with treatment team nursing and social work. Mood is stable. No SI. No urges for self-harm today. Slept well last night with the increased dose of mirtazapine and no side effects. Has been processing past events and feels ready to explore this more in outpatient therapy. Physical Exam Psychiatric Orientation: alert and oriented x 3 Apperance: appropriately dressed and appropriately groomed Eye Contact: good eye contact Motor Behavior: no abnormal motor movements Speech: normal rate/rhythm/volume of speech Affect: euthymic affect Mood: no depressed mood and no anxious mood Thought Process: goal directed thought process Thought Content: reality based without delusions Suicidal Thoughts: denies suicidal thoughts Homicidal Thoughts: denies homicidal thoughts Hallucinations: no auditory hallucinations and no visual hallucinations Cognition: attention grossly intact and language grossly intact Estimated Intelligence: consistent with education level Insight: + fair insight Judgement: + fair judgement Vital Signs (Past 24 Hours) Last Vital Signs Temp 36.8 C 09/26/21 06:00 Pulse 76 09/26/21 06:47 Resp 16 09/26/21 06:00 BP 114/80 09/26/21 06:47 Pulse Ox 96 09/20/21 18:06 Results & Data ([facility]) Current Inpatient Medications Current Inpatient Medications: Current Inpatient Medications Acetaminophen (Acetaminophen 325 Mg Tab) 650 mg PO Q4H PRN PRN Reason: Headache or Minor Fever Stop: 10/18/21 18:13 Al Hydrox/Mg Hydrox/Simethicone (Aluminum/Magnesium Susp 30 Ml Udc) 30 ml PO Q4H PRN PRN Reason: GI Upset Stop: 10/18/21 18:13 Bismuth Subsalicylate (Bismuth Subsalicylate Liqd 236 Ml) 15 ml PO PRN PRN PRN Reason: Loose Stool Stop: 10/18/21 18:13 Hydroxyzine HCl (Hydroxyzine Hcl 25 Mg Tab) 50 mg PO HSZ PRN PRN Reason: Insomnia Stop: 10/18/21 18:13 Last Admin: 09/22/21 22:16 Dose: 50 mg Documented by: Hydroxyzine HCl (Hydroxyzine Hcl 25 Mg Tab) 25 mg PO Q4H PRN PRN Reason: Anxiety Stop: 10/18/21 18:13 Last Admin: 09/20/21 17:58 Dose: 25 mg Documented by: Magnesium Hydroxide (Magnesium Hydroxide Susp 30 Ml Udc) 30 ml PO DAILY PRN PRN Reason: Constipation Stop: 10/18/21 18:13 Mirtazapine (Mirtazapine Tab 15 Mg Tab) 15 mg PO HS RUFINA Stop: 10/25/21 21:59 Last Admin: 09/25/21 22:12 Dose: 15 mg Documented by: Propranolol HCl (Propranolol Hcl 10 Mg Tab) 10 mg PO DAILY PRN PRN Reason: Anxiety Stop: 10/19/21 10:39 Last Admin: 09/20/21 18:23 Dose: 10 mg Documented by: Sodium Chloride (Sodium Chloride 0.65% Na Soln 45 Ml (Castine)) 1 - 2 sprays NA PRN PRN PRN Reason: Nasal Dryness/Congestion Stop: 10/18/21 18:13 Venlafaxine HCl (Venlafaxine Hcl Xr 150 Mg Capxr) 150 mg PO QAM RUFINA Stop: 10/21/21 08:59 Last Admin: 09/26/21 08:51 Dose: 150 mg Documented by: Mental Health & Subst Abuse Tx Psychiatrist Name of Psychiatrist: Osbaldo Chery Psychiatrist's Date of Appointment with Psychiatrist: 09/29/21 Time of Appointment with Psychiatrist: 1:15 pm Psychiatric Appointment Comment: Zoom - log into email at appt time to receive the link for the appt Therapist Name of Therapist: Olga chadwick [facility] Therapist's Date of Therapist Appointment: 10/01/21 Time of Therapist Appointment: 10:30 am Therapy Appointment Comment: Tino Foaming Machine Operator Name of Foaming Machine Operator: N/A Post Discharge Appointments Primary Care Physician Name Of Family Doctor: Tahira Campbell @ [facility] Primary Care Provider Appointment Comment: [address], [place] [address] Contact Information Discharge Discharge Address: [address] [place] [address], [address], [place]
[2021-09-26] MEDS: MIRTAZAPINE TAB 15 MG TAB PO SCH (21:44)
[2021-09-27] MEDS: VENLAFAXINE HCL XR 150 MG CAPXR PO SCH (09:11)
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
== END 2021-09-27 12:30 | disposition home or self-care (01) | DRG 881 ==
LOC: ED 12:16 → 3S 18:53 → SUATTDRO 18:53 → 3S 18:59

== ENCOUNTER 2022-01-28 00:03 | Inpatient (IN) ==
--- NOTE | 2022-01-28 00:24 | Emergency Department Note ---
Impression & Plan Suicide attempt Hand Off, still a patient ED Provider Note HPI: The patient is a 21-year-old male with history of anxiety/depression, presents emergency department after a suicide attempt. Patient states that he did attempt to hang himself from the shower delmy tonight and is off campus apartment. Patient states "I failed". He presents today with his roommate at the bedside who brought him into the ER for evaluation. His roommate did hear this happen and was able to talk the patient into coming to the hospital. Patient states that he attempted to do this with the use of a belt, on arrival he does not have any ligature tejdea on his neck, he denies any neck pain, there is no crepitus to palpation. On arrival the patient is calm and cooperative, he is a flat affect and is a somewhat guarded historian. States he has been admitted for inpatient psychiatric care in the past. On arrival here to the ED the patient is otherwise in no acute distress, denies any recent drug or alcohol use. ROS: -Psychiatric: Suicide attempt *10 point review systems was conducted and is otherwise negative unless stated above *Outpatient medications and allergy history reviewed PE: General: Alert, NAD HEENT: Normocephalic, atraumatic Eyes: Extraocular eye movement is intact, no scleral erythema Pulmonary: Clear to auscultation bilaterally, no wheezing Cardio: Regular rate and rhythm GI: Abdomen is soft, nontender : No suprapubic tenderness MSK: No evidence of trauma or malformation of the extremities, no edema Skin: No evidence of rash Neuro: Alert, no focal deficits Psychiatric: Cooperative, flat affect Medical Decision Making: Patient presented to the emergency department after an apparent suicide attempt, patient states he did try and hang himself with a shower curtain earlier today at his off campus apartment. His roommate was home. He was able to convince the patient to come to the hospital by private vehicle. Patient was medically cleared here in the ED, he was assessed by case management. At this time the patient is voluntary for admission for depression with suicidal thoughts and suicide attempt this evening. Patient will be assessed for placement at [facility] later this morning as he has previously been an inpatient unit at [facility] and did well. Patient is in agreement to the above plan. He was signed out to my colleague, Dr. Rider, pending placement. Diagnosis: 1. Suicidal thoughts, suicide attempt 2. Depression Disposition: Handoff John Wahl DO Emergency Medicine Past Med/Surg History Medical History (Updated 01/28/22 @ 05:45 by John Wahl DO) Anxiety Depression Depression with suicidal ideation GERD (gastroesophageal reflux disease) Surgical History No history of previous surgery Family History Denies family history of Crohn's disease Colorectal cancer Ulcerative colitis Social History Smoking Status: Never smoker Second Hand Exposure: No; Hx Alcohol Use: No Hx Substance Use: No Preferred Language: Syriac Communication Ability: Effective Marketing Specialist Required: No Beliefs That Will Affect Care: None Current Living Situation: Other Current Living Situation Comment: off campus, has roommates Feels Safe at Home: Yes Assistive Devices: Glasses Allergies Allergies Allergy/AdvReac Type Severity Reaction Status Date / Time No Known Allergies Allergy Verified 01/28/22 00:40 Home Meds Home Medications Medication Instructions Recorded Confirmed cetirizine 10 mg tablet (Zyrtec) 10 mg PO DAILY PRN 01/28/22 01/28/22 methylphenidate HCl 10 mg tablet 10 mg PO DAILY PRN 01/28/22 01/28/22 methylphenidate HCl 36 mg 36 mg PO DAILY 01/28/22 01/28/22 tablet,extended release 24 hr mirtazapine 15 mg tablet 15 mg PO HS 01/28/22 01/28/22 venlafaxine 150 mg 150 mg PO DAILY 01/28/22 01/28/22 capsule,extended release 24 hr Results & Data (ED) Vital Signs Vital Signs - 24 hr 01/28/22 00:12 01/28/22 01:26 01/28/22 03:00 Temperature 36.8 C 36.8 C Temperature Source Temporal Artery Scan Oral Pulse Rate 99 H Pulse Rate [Finger] 94 H 76 Respiratory Rate 18 20 18 Respiratory Effort / Characteristics Non-Labored Spontaneous Non-Labored Non-Labored Respiratory Depth Normal Normal Normal Blood Pressure 137/98 Blood Pressure [Left Arm] 134/100 127/77 Blood Pressure Mean 111 Blood Pressure Mean [Left Arm] 111 93 Blood Pressure Position [Left Arm] Sitting Lying Pulse Oximetry 97 96 99 Oxygen Delivery Method Room Air Room Air Room Air Sepsis Recent Fever Within 48 Hours No Sepsis New/Unexplained Change in Mental Status No Sepsis Action Taken by Nursing No Action Required Laboratory Data Result diagrams: 01/28/22 00:33 01/28/22 00:33 Lab Results 01/28/22 01/28/22 01/28/22 Range/Units 00:33 00:33 00:33 WBC 7.11 (4.8-10.8) K/uL RBC 5.27 (4.7-6.1) M/uL Hgb 16.5 (14.0-18.0) g/dL Hct 48.3 (42-52) % MCV 91.7 (80-100) fL MCH 31.3 (25-34) pg MCHC 34.2 (32-36) g/dL RDW Std Deviation 41.3 (36.4-46.3) fL RDW Coeff of Emil 12.3 (11.5-14.5) % Plt Count 238 (130-400) K/uL MPV 9.3 (7.4-10.4) fL Immature Gran % (Auto) 0.1 % Neut % (Auto) 53.4 % Lymph % (Auto) 39.2 % [place] % (Auto) 5.3 % Eos % (Auto) 1.4 % Baso % (Auto) 0.6 % Neut # (Auto) 3.79 (1.4-6.5) K/uL Lymph # (Auto) 2.79 (1.2-3.4) K/uL [place] # (Auto) 0.38 (0.11-0.59) K/uL Eos # (Auto) 0.10 (0-0.5) K/uL Baso # (Auto) 0.04 (0-0.2) K/uL Immature Gran # (Auto) 0.01 (0.00-0.02) K/uL Sodium 137 (136-145) mmol/L Potassium 4.1 (3.5-5.1) mmol/L Chloride 103 (98-107) mmol/L Carbon Dioxide 29 (21-32) mmol/L Anion Gap 5 (3-11) BUN 14 (6-23) mg/dl Creatinine 0.83 (0.6-1.4) mg/dl Est Cr Clr Drug Dosing 137.3 ml/min Est GFR ( Amer) 146.8 ml/min Est GFR (Non-Af Amer) 126.7 ml/min BUN/Creatinine Ratio 16.9 (10-20) Glucose 88 (70-99(Fasting)) mg/dl Calcium 9.4 (8.5-10.1) mg/dl Total Bilirubin 0.4 (0.2-1.0) mg/dl AST 26 (13-39) U/L ALT 30 (7-52) U/L Alkaline Phosphatase 107 H (34-104) U/L Total Protein 7.6 (6.0-8.3) gm/dl Albumin 4.8 (3.4-5.0) gm/dl Globulin 2.8 (2.5-4.0) gm/dl Albumin/Globulin Ratio 1.7 (0.9-2) TSH 1.383 (0.300-4.500) uIu/ml Urine Color Urine Appearance (Clear) Urine pH (4.5-7.5) Ur Specific [place] (1.000-1.030) Urine Protein (Negative) Urine Glucose (UA) (Negative) Urine Ketones (Negative) Urine Blood (Negative) Urine Nitrite (Negative) Urine Bilirubin (Negative) Urine Urobilinogen (Negative) Ur Leukocyte Esterase (Negative) Salicylates (3.0-30) mg/dl Urine Opiates Screen (Neg) Ur Methadone, Qual (Neg) Acetaminophen (10-30) ug/ml Urine Barbiturates (Neg) Ur Phencyclidine (PCP) (Neg) U Amphetamin/Meth Scrn (Neg) MDMA (Ecstasy) Screen (Neg) U Benzodiazepines Scrn (Neg) Ur Cocaine Metabolite (Neg) U Marijuana (THC) Screen (Neg) Ethyl Alcohol mg/dL (<10.0) mg/dl SARS-CoV-2, RNA, NAAT (NEGATIVE) 01/28/22 01/28/22 01/28/22 Range/Units 00:33 00:33 00:34 WBC (4.8-10.8) K/uL RBC (4.7-6.1) M/uL Hgb (14.0-18.0) g/dL Hct (42-52) % MCV (80-100) fL MCH (25-34) pg MCHC (32-36) g/dL RDW Std Deviation (36.4-46.3) fL RDW Coeff of Emil (11.5-14.5) % Plt Count (130-400) K/uL MPV (7.4-10.4) fL Immature Gran % (Auto) % Neut % (Auto) % Lymph % (Auto) % [place] % (Auto) % Eos % (Auto) % Baso % (Auto) % Neut # (Auto) (1.4-6.5) K/uL Lymph # (Auto) (1.2-3.4) K/uL [place] # (Auto) (0.11-0.59) K/uL Eos # (Auto) (0-0.5) K/uL Baso # (Auto) (0-0.2) K/uL Immature Gran # (Auto) (0.00-0.02) K/uL Sodium (136-145) mmol/L Potassium (3.5-5.1) mmol/L Chloride (98-107) mmol/L Carbon Dioxide (21-32) mmol/L Anion Gap (3-11) BUN (6-23) mg/dl Creatinine (0.6-1.4) mg/dl Est Cr Clr Drug Dosing ml/min Est GFR ( Amer) ml/min Est GFR (Non-Af Amer) ml/min BUN/Creatinine Ratio (10-20) Glucose (70-99(Fasting)) mg/dl Calcium (8.5-10.1) mg/dl Total Bilirubin (0.2-1.0) mg/dl AST (13-39) U/L ALT (7-52) U/L Alkaline Phosphatase (34-104) U/L Total Protein (6.0-8.3) gm/dl Albumin (3.4-5.0) gm/dl Globulin (2.5-4.0) gm/dl Albumin/Globulin Ratio (0.9-2) TSH (0.300-4.500) uIu/ml Urine Color Yellow Urine Appearance Clear (Clear) Urine pH 7.0 (4.5-7.5) Ur Specific [place] 1.022 (1.000-1.030) Urine Protein Negative (Negative) Urine Glucose (UA) Negative (Negative) Urine Ketones Negative (Negative) Urine Blood Negative (Negative) Urine Nitrite Negative (Negative) Urine Bilirubin Negative (Negative) Urine Urobilinogen Negative (Negative) Ur Leukocyte Esterase Negative (Negative) Salicylates < 3.0 L (3.0-30) mg/dl Urine Opiates Screen (Neg) Ur Methadone, Qual (Neg) Acetaminophen < 3 L (10-30) ug/ml Urine Barbiturates (Neg) Ur Phencyclidine (PCP) (Neg) U Amphetamin/Meth Scrn (Neg) MDMA (Ecstasy) Screen (Neg) U Benzodiazepines Scrn (Neg) Ur Cocaine Metabolite (Neg) U Marijuana (THC) Screen (Neg) Ethyl Alcohol mg/dL < 10.0 (<10.0) mg/dl SARS-CoV-2, RNA, NAAT (NEGATIVE) 01/28/22 01/28/22 Range/Units 00:34 Unknown WBC (4.8-10.8) K/uL RBC (4.7-6.1) M/uL Hgb (14.0-18.0) g/dL Hct (42-52) % MCV (80-100) fL MCH (25-34) pg MCHC (32-36) g/dL RDW Std Deviation (36.4-46.3) fL RDW Coeff of Emil (11.5-14.5) % Plt Count (130-400) K/uL MPV (7.4-10.4) fL Immature Gran % (Auto) % Neut % (Auto) % Lymph % (Auto) % [place] % (Auto) % Eos % (Auto) % Baso % (Auto) % Neut # (Auto) (1.4-6.5) K/uL Lymph # (Auto) (1.2-3.4) K/uL [place] # (Auto) (0.11-0.59) K/uL Eos # (Auto) (0-0.5) K/uL Baso # (Auto) (0-0.2) K/uL Immature Gran # (Auto) (0.00-0.02) K/uL Sodium (136-145) mmol/L Potassium (3.5-5.1) mmol/L Chloride (98-107) mmol/L Carbon Dioxide (21-32) mmol/L Anion Gap (3-11) BUN (6-23) mg/dl Creatinine (0.6-1.4) mg/dl Est Cr Clr Drug Dosing ml/min Est GFR ( Amer) ml/min Est GFR (Non-Af Amer) ml/min BUN/Creatinine Ratio (10-20) Glucose (70-99(Fasting)) mg/dl Calcium (8.5-10.1) mg/dl Total Bilirubin (0.2-1.0) mg/dl AST (13-39) U/L ALT (7-52) U/L Alkaline Phosphatase (34-104) U/L Total Protein (6.0-8.3) gm/dl Albumin (3.4-5.0) gm/dl Globulin (2.5-4.0) gm/dl Albumin/Globulin Ratio (0.9-2) TSH (0.300-4.500) uIu/ml Urine Color Urine Appearance (Clear) Urine pH (4.5-7.5) Ur Specific [place] (1.000-1.030) Urine Protein (Negative) Urine Glucose (UA) (Negative) Urine Ketones (Negative) Urine Blood (Negative) Urine Nitrite (Negative) Urine Bilirubin (Negative) Urine Urobilinogen (Negative) Ur Leukocyte Esterase (Negative) Salicylates (3.0-30) mg/dl Urine Opiates Screen Neg (Neg) Ur Methadone, Qual Neg (Neg) Acetaminophen (10-30) ug/ml Urine Barbiturates Neg (Neg) Ur Phencyclidine (PCP) Neg (Neg) U Amphetamin/Meth Scrn Neg (Neg) MDMA (Ecstasy) Screen Neg (Neg) U Benzodiazepines Scrn Neg (Neg) Ur Cocaine Metabolite Neg (Neg) U Marijuana (THC) Screen Pos H (Neg) Ethyl Alcohol mg/dL (<10.0) mg/dl SARS-CoV-2, RNA, NAAT NEGATIVE (NEGATIVE) Administered Medications Discontinued Medications Mirtazapine (Mirtazapine Tab 15 Mg Tab) 15 mg PO NOW ONE Stop: 01/28/22 03:52 Last Admin: 01/28/22 04:01 Dose: 15 mg Documented by: [id number] Discharge Plan Visit Data Chief Complaint: Mental Health Evaluation Stated Complaint: MENTAL HEALTH EVAL ED Provider: John Wahl Discharge Problem: Suicide attempt Forms Stand Alone Forms: My [facility], Suicide Prevention Resources Prescriptions Prescriptions: No Action cetirizine [Zyrtec] 10 mg Tablet 10 mg PO DAILY PRN (Reason: Congestion) RF: 0 methylphenidate HCl 10 mg tablet 10 mg PO DAILY PRN (Reason: NEEDED) RF: 0 venlafaxine 150 mg capsule,extended release 24hr 150 mg PO DAILY RF: 0 mirtazapine 15 mg tablet 15 mg PO HS RF: 0 methylphenidate HCl 36 mg tablet extended release 24hr 36 mg PO DAILY RF: 0 Referrals [facility]errals: [facility] [Primary Care Provider] -
[2022-01-28 00:51] LABS: Basophils # (auto) 0.04 K/uL (0-0.2); Basophils % (auto) 0.6 %; Eosinophils % (auto) 1.4 %; Hematocrit (blood only) 48.3 % (42-52); Hemoglobin 16.5 g/dL (14.0-18.0); Immature Granulocytes # (auto) 0.01 K/uL (0.00-0.02); Immature Granulocytes % (auto) 0.1 %; Lymphocytes # (auto) 2.79 K/uL (1.2-3.4); Lymphocytes % (auto) 39.2 %; Mean Corpuscular Hemoglobin 31.3 pg (25-34); Mean Corpuscular Hgb Conc 34.2 g/dL (32-36); Mean Corpuscular Volume 91.7 fL (80-100); Mean Platelet Volume 9.3 fL (7.4-10.4); Monocytes # (auto) 0.38 K/uL (0.11-0.59); Monocytes % (auto) 5.3 %; Neutrophils # (auto) 3.79 K/uL (1.4-6.5); Neutrophils % (auto) 53.4 %; Platelet Count 238 K/uL (130-400); RDW Coefficient of Variation 12.3 % (11.5-14.5); RDW Standard Deviation 41.3 fL (36.4-46.3); Red Blood Count 5.27 M/uL (4.7-6.1); White Blood Count 7.11 K/uL (4.8-10.8)
[2022-01-28 00:53] LABS: Appearance Urine Clear (Clear); Bilirubin Urine Negative (Negative); Blood Urine Negative (Negative); Color Urine Yellow; Glucose Urine UA Negative (Negative); Ketones Urine Negative (Negative); Leukocyte Esterase Urine Negative (Negative); Nitrite Urine Negative (Negative); Protein Urine Negative (Negative); Specific Gravity Urine 1.022 (1.000-1.030); Urobilinogen Urine Negative (Negative)
[2022-01-28 01:14] LABS: Acetaminophen < 3 ug/ml (10-30); Salicylate < 3.0 mg/dl (3.0-30)
[2022-01-28 01:16] LABS: Albumin Globulin Ratio 1.7 (0.9-2); Albumin Level 4.8 gm/dl (3.4-5.0); BUN Creatinine Ratio 16.9 (10-20); Bilirubin,Total 0.4 mg/dl (0.2-1.0); Calcium 9.4 mg/dl (8.5-10.1); Creatinine Clr Calc Pharmacy 137.3 ml/min; Est GFR (African American) 146.8 ml/min; Est GFR (Non-African American) 126.7 ml/min; Globulin 2.8 gm/dl (2.5-4.0); Potassium 4.1 mmol/L (3.5-5.1); Total Protein 7.6 gm/dl (6.0-8.3)
[2022-01-28 01:34] LABS: Amphetamines+Metham, Urine Neg (Neg); Barbiturates, Urine Neg (Neg); Benzodiazepine, Urine Neg (Neg); Cocaine, Urine Neg (Neg); MDMA (Ecstacy), Urine Neg (Neg); Methadone, Urine Neg (Neg); Opiate, Urine Neg (Neg); Phencyclidine, Urine Neg (Neg)
[2022-01-28] MEDS ORDERED: MIRTAZAPINE TAB 15 MG TAB PO ONE (03:51)
[2022-01-28] MEDS ORDERED: MAGNESIUM HYDROXIDE SUSP 30 ML UDC PO PRN (13:20)
[2022-01-28] MEDS ORDERED: BISMUTH SUBSALICYLATE LIQD 236 ML PO PRN (13:20)
[2022-01-28] MEDS ORDERED: SODIUM CHLORIDE 0.65% NA SOLN 45 ML (OCEAN) PRN (13:20)
[2022-01-28] MEDS ORDERED: hydrOXYzine HCl 25 MG TAB PO PRN ×2 (13:20)
[2022-01-28] MEDS ORDERED: ALUMINUM/MAGNESIUM SUSP 30 ML UDC PO PRN (13:20)
--- NOTE | 2022-01-28 13:33 | Emergency Department Note ---
ED Visit Note The patient was signed out to me awaiting placement. Patient was accepted at [facility] .
[2022-01-28] MEDS ORDERED: VENLAFAXINE HCL XR 150 MG CAPXR PO STA (14:20)
[2022-01-28] MEDS ORDERED: VENLAFAXINE HCL XR 150 MG CAPXR PO SCH (14:30)
[2022-01-28] MEDS: LORazepam 0.5 MG TAB PO PRN (15:33)
[2022-01-28] MEDS ORDERED: PROPRANOLOL HCL 10 MG TAB PO PRN (19:59)
[2022-01-28] MEDS ORDERED: METHYLPHENIDATE HCL 10 MG TABLET PO PRN (19:59)
[2022-01-28] MEDS: MIRTAZAPINE TAB 15 MG TAB PO SCH (21:10)
[2022-01-29] MEDS ORDERED: VENLAFAXINE HCL XR 150 MG CAPXR PO SCH (09:00)
--- NOTE | 2022-01-29 09:01 | History & Physical ---
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 Diagnostically consistent with MDD and possible BPD given rapid mood shifts/self-harm/impulsive intense SI. No evidence for BPAD as mood changes are from depressed mood to stable mood. The patient is deemed unstable and requires psychiatric hospitalization for diagnostic clarification, safety and stabilization, medication management and development of further coping skills. Discussed medication treatment options in detail including SSRI vs SNRI. Discussed risks, benefits and alternatives. Patient would like to start sertraline for MDD and trauma symptoms. Discussed side effects including but not limited to: GI, TALAMANTES, sexual side effects, vivid dreams and counseled on black box warning of potential for emergence of or increased SI and need to let staff know should this occur or should they feel unsafe. Also discussed importance of seeking emergency care following discharge if this side effect occurs in the future. Reviewed risks of ativan including addictive potential and using only if intense urges for self-harm or intensifying SI which he agrees with. (1) Suicide attempt: (2) MDD (major depressive disorder), recurrent episode, severe: (3) Self-harming behavior: (4) Post traumatic stress disorder (PTSD): (5) ADHD: 01/29/22: The patient was admitted to the [facility] on q15 min checks (behavioral with suicide precautions) for safety. The patient will participate in group, recreational, and milieu therapies and will be offered additional individual and family sessions as clinically appropriate. -Provide with [place] BPD screen -Consideration for DBT IOP if any availability/programs near his home if he chooses to withdrawal from school -Taper Effexor -Start sertraline 25mg qd -mirtazapine 15mg qhs -holding stimulants due to non-formulary and not doing school work here -ativan 0.5 mg BID prn if he develops strong urges for self-harm/intensifying SI Inventory Assets Strengths: student, supportive friends, motivated to engage in therapy Needs: additional coping skills, medication adjustment Risk Factors Assessment Acute risk is high given suicide attempt, recent attempt, prior attempt and mood shifts with impulsivity and self-harm. Chronic risk moderate given prior attempts and non-modifiable risks. Most significant modifiable risk factors including treating depression, safety/stabilization in secure environment, safety planning, additional coping skills and diagnostic clarification re: BPD and then would ideally get DBT. Male: Yes : Yes Do You Have Access To A Gun?: No Health Problems: No Mental Health Diagnoses: Yes Substance Use Disorders: No Previous Attempt: Yes Previous Attempt; Highly Lethal: Yes Family History of Suicide: No Previous Psychiatric Hospitalization: Yes Hopelessness: Yes Smoker: No Protective Factors Assessment Employed: Yes ([employer]) Stable Relationships: Yes Supportive Family: Yes Good Rapport with Provider: Yes Psychiatric History Identifying Data REYNOLD MANN is a 21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 Chief Complaint "I'm just done". History of Present Illness Giles presents for psychiatric admission after recent hanging attempt on 01/25/22 and then another suicide attempt via hanging on 01/27/22 using a belt around the shower delmy which was interrupted by shower delmy falling and roommate intervening. Ongoing current stressors including academic stress/failing classes, feeling unsupported by family, and interpersonal strain. He states the suicide attempts were "very impulsive" but "still today I just don't want to be here, I've tried so many things and I'm just done". He states when he tried to attempt suicide "it didn't work, it wasn't as quick and easy as I thought it would be it". While in the ED he also endorsed SI with plan to overdose and had been researching other ways effectively complete suicide. He states he's been doing his own research while in the impulsive mind set" of "easiest ways to kill yourself" and he considering taking a bottle of acetaminophen but then read "it's unlikely you'll even and would just be in a lot of pain". He was admitted to [facility] in September 2021 and was started on medication for depression. States that last week "I was on top of the world, going to class, socializing, I was in a good mood, I was exercising again, I was doing my extracurricular, I was just happy". However then something shifted on 01/25/22 "I don't know, that's what I'm confused about, I think I started overthinking again" and then he felt very depressed but then on 01/26/22 "I was fine again" but then on 01/27/22 "I wasn't again" and now "I'm very depressed". He notes the shift in his mood can happen quickly, some days he'll be depressed the whole day and when he's happy it can last one day to a week but sometimes his mood can shift hour to hour. The last few days he had some interpersonal stressors including argument with his roommate and his parents. He felt "a lot of energy built up inside me and I lashed out at him (roommate) and was mean and that bothered me because I'm not a mean person". He talked to his parents about possibly withdrawing and returning home and was encouraged to stay and get through the semester and they then decreased contact with him which has felt "really upsetting" and he feels like it's a very controlling relationship and "toxic" as they financially support him but he feels they don't understand how challenging things have been. He also feels they minimize his past trauma experiences and are unable to understand his mood shifts. The mood shifts also make it hard for his friends to relate and understand his struggles. Has been self-harming over the last few days by scratching his arms and using scissors and a razor. Depressive symptoms during periods of low mood including increased sleep, fatigue, difficulty with concentration, decreased motivation, hopelessness, helplessness, anhedonia and SI with plan of hanging. Anxiety has been "nonexistent", "I don't really feel anything". He's been feeling more "numb" including currently. Yesterday on admission he felt "embarrassed to be back here" and "I don't want to be here but I know if I wasn't I'd be ". This caused him to feel increasingly suicidal and had urges to self-harm. He was given ativan prn with good relief and ability to safety plan. School has been challenging due to deferring last semester and not being able to catch up on work from last semester and now is on the edge of failing this semester. States he's been talking to student care and advocacy and student disability services but feels like this hasn't been helpful and that "I'm basically on my own". He doesn't think the semester is salvageable at this point, even after dropping some classes to go down to 10 credits. He feels his outpatient resources are not providing enough support since therapy is only every other week due to her scheduling. He liked the weekly therapy. He feels that psychiatric management is not going well because he can't get through when he needs medication refills and doesn't hear back. This has caused him to go days at times without Effexor and experience withdrawal effects which "further messes with my brain". Effexor doesn't seem to help but hard to tell due to running out of scripts and not being able to get refills. Continues to find mirtazapine very helpful for sleep. Not taking propranolol due to no current anxiety. His primary care doctor started him on ADHD medications of Concerta and afternoon ritalin IR. Psychiatric ROS notable for denial of rony, denial psychosis, denial eating disorder. Past Psychiatric History Current Psychiatric Diagnosis: MDD, ADHD, possibly PTSD Outpatient Services: Jinny Chery through [facility] for medication management and Olga Jean through [facility] for bimonthly therapy appointments Previous Psych Admissions: [facility] September 2021 Do You Have Access To A Gun?: No History of Previous Suicide Attempt: Yes Describe Attempts in the Past: Hanging - September 2021, January 2022 x2 Past Medication Trials: Prozac (depersonalization), Effexor XR 37.5 mg Past Head Trauma/Neuro History History of Concussion/Seizure: No Allergies Allergy/AdvReac Type Severity Reaction Status Date / Time No Known Allergies Allergy Verified 01/28/22 00:40 Home Medications Medication Instructions Recorded Confirmed Type cetirizine 10 mg tablet (Zyrtec) 10 mg PO DAILY PRN 01/28/22 01/28/22 History methylphenidate HCl 10 mg tablet 10 mg PO DAILY PRN 01/28/22 01/28/22 History methylphenidate HCl 36 mg 36 mg PO DAILY 01/28/22 01/28/22 History tablet,extended release 24 hr mirtazapine 15 mg tablet 15 mg PO HS 01/28/22 01/28/22 History propranolol 10 mg tablet 10 mg PO DAILY PRN 01/28/22 01/28/22 History venlafaxine 150 mg 150 mg PO DAILY 01/28/22 01/28/22 History capsule,extended release 24 hr Family History Family History of: None Alcohol History Hx of Alcohol Use Over the Past 12 Months: Yes (Socially) AUDIT Total Score: 3 Smoking Use Have You Smoked or Used Tobacco Products in the Last 30 Days: No Smoking Status: Never smoker Substance History Hx of Prescription Med Misuse Over the Past 12 Months: No Hx of Over the Counter Med Misuse Over the Past 12 Months: No Hx of Inhalent Misuse Over the Past 12 Months: No Hx of Organic Substance Use Over the Past 12 Months: No Hx of Illegal Substances/Street Drug Use Over Past 12 Months: No Problems as a Result of Past Substance Use: None Identified occasional marijuana use Personal History Living Arrangements: Apartment (roommate) 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[employer]) Beliefs That Will Affect Care: None Current Legal Problems: No Hx Legal Problems: No Hx Traumatic Life Events: Yes Patient History Medical History (Updated 01/29/22 @ 11:12 by Tamie Gonzalez MD) ADHD Anxiety Depression Depression with suicidal ideation GERD (gastroesophageal reflux disease) Self-harming behavior Surgical History No history of previous surgery Family History Denies family history of Crohn's disease Colorectal cancer Ulcerative colitis Social History Smoking Status: Never smoker Second Hand Exposure: No; Hx Alcohol Use: No Hx Substance Use: No Preferred Language: South Korean Communication Ability: Effective Public Health Educator Required: No Beliefs That Will Affect Care: None Current Living Situation: Other Current Living Situation Comment: off campus, has roommates Feels Safe at Home: Yes Assistive Devices: Contacts and Glasses Review of Systems Review of Systems: All systems reviewed & are unremarkable except as noted in HPI & below Physical Exam Psychiatric: Orientation: alert and oriented x 3 Apperance: appropriately dressed and appropriately groomed Eye Contact: good eye contact Motor Behavior: no abnormal motor movements Speech: normal rate/rhythm/volume of speech Affect: + depressed affect Mood: + depressed mood Thought Process: goal directed thought process Thought Content: reality based without delusions Suicidal Thoughts: denies suicidal intent (feels safe in the [facility], able to safety contract); + reports suicidal thoughts and + reports suicidal plan Homicidal Thoughts: denies homicidal thoughts Hallucinations: no auditory hallucinations and no visual hallucinations Cognition: recent memory grossly intact, remote memory grossly intact, attention grossly intact and language grossly intact Estimated Intelligence: consistent with education level Insight: + fair insight Judgement: + limited judgemen t Vital Signs (Past 24 Hours): Last Vital Signs Temp 36.8 C 01/29/22 06:00 Pulse 96 H 01/29/22 06:53 Resp 16 01/29/22 06:00 BP 113/77 01/29/22 06:53 Pulse Ox 98 01/28/22 13:37 Exam Statement: A physical exam was performed in the ED by Dr. Wahl for the purposes of medical clearance. I accept that physical as correct and adequate for the purposes of the inpatient physical exam. Results & Data ([facility]) Current Inpatient Medications Current Inpatient Medications: Current Inpatient Medications Acetaminophen (Acetaminophen 325 Mg Tab) 650 mg PO Q4H PRN PRN Reason: Headache or Minor Fever Stop: 02/27/22 13:19 Al Hydrox/Mg Hydrox/Simethicone (Aluminum/Magnesium Susp 30 Ml Udc) 30 ml PO Q4H PRN PRN Reason: GI Upset Stop: 02/27/22 13:19 Bismuth Subsalicylate (Bismuth Subsalicylate Liqd 236 Ml) 15 ml PO PRN PRN PRN Reason: Loose Stool Stop: 02/27/22 13:19 Cetirizine HCl (Cetirizine Hcl 10 Mg Tablet) 10 mg PO DAILY PRN PRN Reason: Congestion Stop: 02/27/22 19:58 Hydroxyzine HCl (Hydroxyzine Hcl 25 Mg Tab) 50 mg PO HSZ PRN PRN Reason: Insomnia Stop: 02/27/22 13:19 Hydroxyzine HCl (Hydroxyzine Hcl 25 Mg Tab) 25 mg PO Q4H PRN PRN Reason: Anxiety Stop: 02/27/22 13:19 Lorazepam (Lorazepam 0.5 Mg Tab) 0.5 mg PO BID PRN PRN Reason: Anxiety Stop: 02/27/22 15:24 Last Admin: 01/28/22 15:33 Dose: 0.5 mg Documented by: Magnesium Hydroxide (Magnesium Hydroxide Susp 30 Ml Udc) 30 ml PO DAILY PRN PRN Reason: Constipation Stop: 02/27/22 13:19 Methylphenidate HCl (Methylphenidate Hcl 10 Mg Tablet) 10 mg PO DAILY PRN PRN Reason: NEEDED Stop: 02/11/22 19:58 Mirtazapine (Mirtazapine Tab 15 Mg Tab) 15 mg PO [facility] Stop: 02/27/22 21:59 Last Admin: 01/28/22 21:10 Dose: 15 mg Documented by: Miscellaneous (Concerta 36 Mg Order Awaiting Action) 1 ea N/A QS [facility] Stop: 02/27/22 20:29 Last Admin: 01/29/22 08:03 Dose: Not Given Documented by: Propranolol HCl (Propranolol Hcl 10 Mg Tab) 10 mg PO DAILY PRN PRN Reason: Anxiety Stop: 02/27/22 19:58 Sodium Chloride (Sodium Chloride 0.65% Na Soln 45 Ml ([place])) 1 - 2 sprays NA PRN PRN PRN Reason: Nasal Dryness/Congestion Stop: 02/27/22 13:19 Venlafaxine HCl (Venlafaxine Hcl Xr 150 Mg Capxr) 150 mg PO DAILY RUFINA Stop: 02/28/22 08:59 Last Admin: 01/29/22 08:04 Dose: 150 mg Documented by:
[2022-01-29] MEDS: LORazepam 0.5 MG TAB PO PRN (15:10)
--- NOTE | 2022-01-29 17:01 | Communication Note ---
Date of Service: January 29, 2022 He completed Jose Armando BPD Screen with score of 7 which is considered a positive screen. Copy scanned in chart.
[2022-01-29] MEDS: MIRTAZAPINE TAB 15 MG TAB PO SCH (21:30)
[2022-01-30 04:57] LABS: Marijuana Quant, GCMS Urine 51 ng/mL (<5)
--- NOTE | 2022-01-30 09:04 | Psychiatric Progress Note ---
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 Diagnostically consistent with MDD and possible BPD given rapid mood shifts/self-harm/impulsive intense SI. No evidence for BPAD as mood changes are from depressed mood to stable mood. The patient is deemed unstable and requires psychiatric hospitalization for diagnostic clarification, safety and stabilization, medication management and development of further coping skills. 01/30/22: Tolerating initiation of venlafaxine to sertraline cross-taper. Discontinuing lorazepam given some reduction in intensity of urges for self-harm and SI, able to safety contract and remain safe in the hospital. Jose Armando BPD screening positive-some aspects fit with his experience and other criteria point away from diagnosis but continuing to discuss DBT coping skills and mindfulness practices to help with emotion regulation and SI as more intense periods of SI and mood shifts would likely benefit from DBT approach. (1) Suicide attempt: (2) MDD (major depressive disorder), recurrent episode, severe: (3) Self-harming behavior: (4) Post traumatic stress disorder (PTSD): (5) ADHD: 01/30/22: Cross-taper from venlafaxine XR (decreased to 75 mg qd) to sert raline (25 mg qAM today). Discontinued ativan. Continue mirtazapine qhs. 01/29/22: The patient was admitted to the [facility]) on q15 min checks (behavioral with suicide precautions) for safety. The patient will participate in group, recreational, and milieu therapies and will be offered additional individual and family sessions as clinically appropriate. -Provide with [place] BPD screen -Consideration for DBT IOP if any availability/programs near his home if he chooses to withdrawal from school -Taper Effexor -Start sertraline 25mg qd -mirtazapine 15mg qhs -holding stimulants due to non-formulary and not doing school work here -ativan 0.5 mg BID prn if he develops strong urges for self-harm/intensifying SI Inventory Assets Strengths: student, supportive friends, motivated to engage in therapy Needs: additional coping skills, medication adjustment Risk Factors Assessment Male: Yes : Yes Do You Have Access To A Gun?: No Health Problems: No Mental Health Diagnoses: Yes Substance Use Disorders: No Previous Attempt: Yes Previous Attempt; Highly Lethal: Yes Family History of Suicide: No Previous Psychiatric Hospitalization: Yes Hopelessness: Yes Smoker: No Protective Factors Assessment Employed: Yes ([employer]) Stable Relationships: Yes Supportive Family: Yes Good Rapport with Provider: Yes Interval History Identifying Information REYNOLD MANN is a 21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 Chief Complaint "I'm a little better today". Review of Systems Sleep Information Total Hours of Sleep: 8 Meal Information Percent Meal Consumed - Breakfast: 100 Percent Meal Consumed - Lunch: 90 Percent Meal Consumed - Dinner: 100 Subjective Subjective Patient was seen & assessed and interval progress reviewed with treatment team nursing and social work. Tearful last night after his friends brought in supportive letters and encouragement. He requested ativan yesterday afternoon due to high anxiety. Today some improvement in mood but remains depressed. Reviewed BPD screen-he felt that "lack of identity piece really stood out to me" but we also reviewed how some criteria are less consistent such as lack of periods of intense anger and stable relationships. No side effects from cross- taper. Considering medical withdrawal. Physical Exam Psychiatric Orientation: alert and oriented x 3 Apperance: appropriately dressed and appropriately groomed Eye Contact: good eye contact Motor Behavior: no abnormal motor movements Speech: normal rate/rhythm/volume of speech Affect: + depressed affect Mood: + depressed mood Thought Process: goal directed thought process Thought Content: reality based without delusions Suicidal Thoughts: denies suicidal plan and denies suicidal intent; + reports suicidal thoughts (intermittent, feels safe in the hospital, able to safety contract) Homicidal Thoughts: denies homicidal thoughts Hallucinations: no auditory hallucinations and no visual hallucinations Cognition: recent memory grossly intact, remote memory grossly intact, attention grossly intact and language grossly intact Estimated Intelligence: consistent with education level Insight: + fair insight Judgement: + limited judgement Vital Signs (Past 24 Hours) Last Vital Signs Temp 36.4 C L 01/30/22 06:00 Pulse 92 H 01/30/22 06:17 Resp 16 01/30/22 06:00 BP 120/84 01/30/22 06:17 Pulse Ox 98 03/23/22 13:37 Results & Data ([facility]) Laboratory Results Laboratory Results - last 24 hr 01/28/22 00:34 U Marijuana THC Carboxy 51 H Drug Screen Comment SEE NOTE Current Inpatient Medications Current Inpatient Medications: Current Inpatient Medications Acetaminophen (Acetaminophen 325 Mg Tab) 650 mg PO Q4H PRN PRN Reason: Headache or Minor Fever Stop: 02/27/22 13:19 Al Hydrox/Mg Hydrox/Simethicone (Aluminum/Magnesium Susp 30 Ml Udc) 30 ml PO Q4H PRN PRN Reason: GI Upset Stop: 02/27/22 13:19 Bismuth Subsalicylate (Bismuth Subsalicylate Liqd 236 Ml) 15 ml PO PRN PRN PRN Reason: Loose Stool Stop: 02/27/22 13:19 Cetirizine HCl (Cetirizine Hcl 10 Mg Tablet) 10 mg PO DAILY PRN PRN Reason: Congestion Stop: 02/27/22 19:58 Hydroxyzine HCl (Hydroxyzine Hcl 25 Mg Tab) 50 mg PO HSZ PRN PRN Reason: Insomnia Stop: 02/27/22 13:19 Hydroxyzine HCl (Hydroxyzine Hcl 25 Mg Tab) 25 mg PO Q4H PRN PRN Reason: Anxiety Stop: 02/27/22 13:19 Lorazepam (Lorazepam 0.5 Mg Tab) 0.5 mg PO BID PRN PRN Reason: Anxiety Stop: 02/27/22 15:24 Last Admin: 01/29/22 15:10 Dose: 0.5 mg Documented by: Magnesium Hydroxide (Magnesium Hydroxide Susp 30 Ml Udc) 30 ml PO DAILY PRN PRN Reason: Constipation Stop: 02/27/22 13:19 Mirtazapine (Mirtazapine Tab 15 Mg Tab) 15 mg PO HS RUFINA Stop: 02/27/22 21:59 Last Admin: 01/29/22 21:30 Dose: 15 mg Documented by: Miscellaneous (Concerta 36 Mg Order Awaiting Action) 1 ea N/A QS RUFINA Stop: 02/27/22 20:29 Last Admin: 01/29/22 08:03 Dose: Not Given Documented by: Propranolol HCl (Propranolol Hcl 10 Mg Tab) 10 mg PO DAILY PRN PRN Reason: Anxiety Stop: 02/27/22 19:58 Sertraline HCl (Sertraline Hcl 50 Mg Tablet) 25 mg PO QAM RUFINA Stop: 03/01/22 08:59 Sodium Chloride (Sodium Chloride 0.65% Na Soln 45 Ml ([place])) 1 - 2 sprays NA PRN PRN PRN Reason: Nasal Dryness/Congestion Stop: 02/27/22 13:19 Venlafaxine HCl (Venlafaxine Hcl Xr 75 Mg Capxr) 75 mg PO DAILY RUFINA Stop: 03/01/22 08:59 Mental Health & Subst Abuse Tx Psychiatrist Name of Psychiatrist: Osbaldo Martel Psychiatrist's Psychiatric Appointment Comment: [id number] [facility] [address], [place] [address] Therapist Name of Therapist: Jasper Donohue Therapist's Therapy Appointment Comment: [address], [place] [address] Sleeve Tailor Name of Sleeve Tailor: None Post Discharge Appointments Primary Care Physician Name Of Family Doctor: [facility] - Tahira Campbell Primary Care Provider Appointment Comment: [address] [facility], [place] [address] Contact Information Discharge Discharge Address: [address], [place], [place] Contact Information Comment: Home Address: [address], [place] [address]
[2022-01-30] MEDS: SERTRALINE HCL 50 MG TABLET PO SCH (09:44)
[2022-01-30] MEDS: VENLAFAXINE HCL XR 75 MG CAPXR PO SCH (09:45)
[2022-01-30] MEDS: CETIRIZINE HCL 10 MG TABLET PO PRN (09:45)
[2022-01-30] MEDS: ACETAMINOPHEN 325 MG TAB PO PRN ×2 (11:15→20:26)
[2022-01-30] MEDS: MIRTAZAPINE TAB 15 MG TAB PO SCH (20:51)
[2022-01-31] MEDS: VENLAFAXINE HCL XR 75 MG CAPXR PO SCH (09:03)
[2022-01-31] MEDS: SERTRALINE HCL 50 MG TABLET PO SCH (09:06)
[2022-01-31] MEDS: CETIRIZINE HCL 10 MG TABLET PO PRN (10:24)
[2022-01-31] MEDS ORDERED: COUGH DROP (SUGAR FREE) LOZ 24 LOZ/1 BOX BUCCAL PRN (10:36)
[2022-01-31] MEDS: ACETAMINOPHEN 325 MG TAB PO PRN (11:16)
--- NOTE | 2022-01-31 13:59 | Psychiatric Progress Note ---
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 Diagnostically consistent with MDD and possible BPD given rapid mood shifts/self-harm/impulsive intense SI. No evidence for BPAD as mood changes are from depressed mood to stable mood. The patient is deemed unstable and requires psychiatric hospitalization for diagnostic clarification, safety and stabilization, medication management and development of further coping skills. 01/31/22: minimal change (1) Suicide attempt: (2) MDD (major depressive disorder), recurrent episode, severe: (3) Self-harming behavior: (4) Post traumatic stress disorder (PTSD): (5) ADHD: 01/31/22: continue cross taper by decreasing Effexor XR to 27.5 mg, increase sertraline to 50 mg daily. 01/30/22: Cross-taper from venlafaxine XR (decreased to 75 mg qd) to sertraline (25 mg qAM today). Discontinued ativan. Continue mirtazapine qhs. 01/29/22: The patient was admitted to the [facility] ([facility] mental health unit) on q15 min checks (behavioral with suicide precautions) for safety. The patient will participate in group, recreational, and milieu therapies and will be offered additional individual and family sessions as clinically appropriate. -Provide with [place] BPD screen -Consideration for DBT IOP if any availability/programs near his home if he chooses to withdrawal from school -Taper Effexor -Start sertraline 25mg qd -mirtazapine 15mg qhs -holding stimulants due to non-formulary and not doing school work here -ativan 0.5 mg BID prn if he develops strong urges for self-harm/intensifying SI Inventory Assets Strengths: student, supportive friends, motivated to engage in therapy Needs: additional coping skills, medication adjustment Risk Factors Assessment Male: Yes : Yes Do You Have Access To A Gun?: No Health Problems: No Mental Health Diagnoses: Yes Substance Use Disorders: No Previous Attempt: Yes Previous Attempt; Highly Lethal: Yes Family History of Suicide: No Previous Psychiatric Hospitalization: Yes Hopelessness: Yes Smoker: No Protective Factors Assessment Employed: Yes ([employer]) Stable Relationships: Yes Supportive Family: Yes Good Rapport with Provider: Yes Interval History Identifying Information REYNOLD MANN is a 21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 Chief Complaint "yeah, I feel the same I guess". Review of Systems Sleep Information Total Hours of Sleep: 6.75 Meal Information Percent Meal Consumed - Breakfast: 90 Percent Meal Consumed - Lunch: 100 Percent Meal Consumed - Dinner: 100 Subjective Subjective Patient was seen & assessed and interval progress reviewed with nursing and social work . Some anxiety in anticipation of family meeting as one last stay "wans't great". Will be withdrawing from classes. Is interested in DBT group. Notes some nasal congestion and throat irritation consistent with allergies, no fever or cough. Physical Exam Psychiatric Orientation: alert and oriented x 3 Apperance: appropriately dressed and appropriately groomed Eye Contact: good eye contact Motor Behavior: no abnormal motor movements Speech: normal rate/rhythm/volume of speech Affect: + depressed affect Mood: + depressed mood Thought Process: goal directed thought process Thought Content: reality based without delusions Suicidal Thoughts: denies suicidal plan and denies suicidal intent; + reports suicidal thoughts (intermittent, feels safe in the hospital) Homicidal Thoughts: denies homicidal thoughts Hallucinations: no auditory hallucinations and no visual hallucinations Cognition: recent memory grossly intact, remote memory grossly intact, attention grossly intact and language grossly intact Estimated Intelligence: consistent with education level Insight: + fair insight Judgement: + limited judgement Vital Signs (Past 24 Hours) Last Vital Signs Temp 37 C 01/31/22 06:49 Pulse 99 H 01/31/22 06:50 Resp 16 01/31/22 06:49 BP 134/87 01/31/22 06:50 Pulse Ox 98 01/28/22 13:37 Results & Data ([facility]) Current Inpatient Medications Current Inpatient Medications: Current Inpatient Medications Acetaminophen (Acetaminophen 325 Mg Tab) 650 mg PO Q4H PRN PRN Reason: Headache or Minor Fever Stop: 02/27/22 13:19 Last Admin: 01/31/22 11:16 Dose: 650 mg Documented by: Al Hydrox/Mg Hydrox/Simethicone (Aluminum/Magnesium Susp 30 Ml Udc) 30 ml PO Q4H PRN PRN Reason: GI Upset Stop: 02/27/22 13:19 Bismuth Subsalicylate (Bismuth Subsalicylate Liqd 236 Ml) 15 ml PO PRN PRN PRN Reason: Loose Stool Stop: 02/27/22 13:19 Cetirizine HCl (Cetirizine Hcl 10 Mg Tablet) 10 mg PO DAILY PRN PRN Reason: Congestion Stop: 02/27/22 19:58 Last Admin: 01/31/22 10:24 Dose: 10 mg Documented by: Hydroxyzine HCl (Hydroxyzine Hcl 25 Mg Tab) 50 mg PO HSZ PRN PRN Reason: Insomnia Stop: 02/27/22 13:19 Hydroxyzine HCl (Hydroxyzine Hcl 25 Mg Tab) 25 mg PO Q4H PRN PRN Reason: Anxiety Stop: 02/27/22 13:19 Magnesium Hydroxide (Magnesium Hydroxide Susp 30 Ml Udc) 30 ml PO DAILY PRN PRN Reason: Constipation Stop: 02/27/22 13:19 Menthol (Cough Drop (Sugar Free) Peri 24 Peri/1 Box) 1 peri BUCCAL Q2HWA PRN PRN Reason: Sore Throat Stop: 03/02/22 10:35 Mirtazapine (Mirtazapine Tab 15 Mg Tab) 15 mg PO HS RUFINA Stop: 02/27/22 21:59 Last Admin: 01/30/22 20:51 Dose: 15 mg Documented by: Propranolol HCl (Propranolol Hcl 10 Mg Tab) 10 mg PO DAILY PRN PRN Reason: Anxiety Stop: 02/27/22 19:58 Pseudoephedrine HCl (Pseudoephedrine Hcl 30 Mg Tab) 30 mg PO Q6H PRN PRN Reason: Congestion Stop: 03/02/22 10:35 Sertraline HCl (Sertraline Hcl 50 Mg Tablet) 50 mg PO QAM RUFINA Stop: 03/03/22 08:59 Sodium Chloride (Sodium Chloride 0.65% Na Soln 45 Ml ([place])) 1 - 2 sprays NA PRN PRN PRN Reason: Nasal Dryness/Congestion Stop: 02/27/22 13:19 Venlafaxine HCl (Venlafaxine Hcl Xr 37.5 Mg Capxr) 37.5 mg PO DAILY RUFINA Stop: 02/02/22 09:01 Mental Health & Subst Abuse Tx Psychiatrist Name of Psychiatrist: Osbaldo Martel Psychiatrist's Psychiatric Appointment Comment: [address], [place] [address] Therapist Name of Therapist: Jasper Donohue Therapist's Therapy Appointment Comment: [address], [place] [address] [employer] Name of [employer]: None Post Discharge Appointments Primary Care Physician Name Of Family Doctor: [facility] - Tahira Campbell Primary Care Provider Appointment Comment: [address], [place] [address] Contact Information Discharge Discharge Address: [address], [place], [place] Contact Information Comment: Home Address: [address], [place] [address]
[2022-01-31] MEDS: MIRTAZAPINE TAB 15 MG TAB PO SCH (21:35)
[2022-02-01] MEDS: VENLAFAXINE HCL XR 37.5 MG CAPXR PO SCH (09:07)
[2022-02-01] MEDS: SERTRALINE HCL 50 MG TABLET PO SCH (09:07)
[2022-02-01] MEDS: CETIRIZINE HCL 10 MG TABLET PO PRN (10:38)
[2022-02-01] MEDS: PSEUDOEPHEDRINE HCL 30 MG TAB PO PRN (14:14)
--- NOTE | 2022-02-01 15:33 | Psychiatric Progress Note ---
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 Diagnostically consistent with MDD and possible BPD given rapid mood shifts/self-harm/impulsive intense SI. No evidence for BPAD as mood changes are from depressed mood to stable mood. The patient is deemed unstable and requires psychiatric hospitalization for diagnostic clarification, safety and stabilization, medication management and development of further coping skills. 02/01/22: as per Dr. Gonzalez above, improving (1) Suicide attempt: (2) MDD (major depressive disorder), recurrent episode, severe: (3) Self-harming behavior: (4) Post traumatic stress disorder (PTSD): (5) ADHD: 02/01/22: last dose of Effexor in the am. safety planning. 01/31/22: continue cross taper by decreasing Effexor XR to 27.5 mg, increase sertraline to 50 mg daily. 01/30/22: Cross-taper from venlafaxine XR (decreased to 75 mg qd) to sertraline (25 mg qAM today). Discontinued ativan. Continue mirtazapine qhs. 01/29/22: The patient was admitted to the [facility] ([facility] mental [facility] unit) on q15 min checks (behavioral with suicide precautions) for safety. The patient will participate in group, recreational, and milieu therapies and will be offered additional individual and family sessions as clinically appropriate. -Provide with [place] BPD screen -Consideration for DBT IOP if any availability/programs near his home if he chooses to withdrawal from school -Taper Effexor -Start sertraline 25mg qd -mirtazapine 15mg qhs -holding stimulants due to non-formulary and not doing school work here -ativan 0.5 mg BID prn if he develops strong urges for self-harm/intensifying SI Inventory Assets Strengths: student, supportive friends, motivated to engage in therapy Needs: additional coping skills, medication adjustment Risk Factors Assessment Male: Yes : Yes Do You Have Access To A Gun?: No Health Problems: No Mental Health Diagnoses: Yes Substance Use Disorders: No Previous Attempt: Yes Previous Attempt; Highly Lethal: Yes Family History of Suicide: No Previous Psychiatric Hospitalization: Yes Hopelessness: Yes Smoker: No Protective Factors Assessment Employed: Yes ([employer]) Stable Relationships: Yes Supportive Family: Yes Good Rapport with Provider: Yes Interval History Identifying Information REYNOLD MANN is a 21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 Chief Complaint "yeah, i just have to make sure I don't isolate myself when I leave here". Review of Systems Sleep Information Total Hours of Sleep: 6 Sleep Comments: difficulty falling asleep due to roommate's snoring, was given sound machine. Meal Information Percent Meal Consumed - Breakfast: 100 Percent Meal Consumed - Lunch: 100 Percent Meal Consumed - Dinner: 90 Subjective Subjective Patient was seen & assessed and interval progress reviewed with nursing and social work . He plans to return home following discharge as withdrawing from classes. Reviewed pros/cons. Continues to tolerate medications. Tachy this am but may be error as no previous, repeat is 80s (trend in other patients as well.) Physical Exam Psychiatric Orientation: alert and oriented x 3 Apperance: appropriately dressed and appropriately groomed Eye Contact: good eye contact Motor Behavior: no abnormal motor movements Speech: normal rate/rhythm/volume of speech Affect: euthymic affect Mood: + depressed mood Thought Process: goal directed thought process Thought Content: reality based without delusions Homicidal Thoughts: denies homicidal thoughts Hallucinations: no auditory hallucinations and no visual hallucinations Cognition: recent memory grossly intact, remote memory grossly intact, attention grossly intact and language grossly intact Estimated Intelligence: consistent with education level Insight: + fair insight Judgement: + limited judgement Vital Signs (Past 24 Hours) Last Vital Signs Temp 36.9 C 02/01/22 06:47 Pulse 132 H 02/01/22 06:48 Resp 16 02/01/22 06:47 BP 128/80 02/01/22 06:48 Pulse Ox 98 01/28/22 13:37 Results & Data ([facility]) Current Inpatient Medications Current Inpatient Medications: Current Inpatient Medications Acetaminophen (Acetaminophen 325 Mg Tab) 650 mg PO Q4H PRN PRN Reason: Headache or Minor Fever Stop: 02/27/22 13:19 Last Admin: 01/31/22 11:16 Dose: 650 mg Documented by: Al Hydrox/Mg Hydrox/Simethicone (Aluminum/Magnesium Susp 30 Ml Udc) 30 ml PO Q4H PRN PRN Reason: GI Upset Stop: 02/27/22 13:19 Bismuth Subsalicylate (Bismuth Subsalicylate Liqd 236 Ml) 15 ml PO PRN PRN PRN Reason: Loose Stool Stop: 02/27/22 13:19 Cetirizine HCl (Cetirizine Hcl 10 Mg Tablet) 10 mg PO DAILY PRN PRN Reason: Congestion Stop: 02/27/22 19:58 Last Admin: 02/01/22 10:38 Dose: 10 mg Documented by: Hydroxyzine HCl (Hydroxyzine Hcl 25 Mg Tab) 50 mg PO HSZ PRN PRN Reason: Insomnia Stop: 02/27/22 13:19 Hydroxyzine HCl (Hydroxyzine Hcl 25 Mg Tab) 25 mg PO Q4H PRN PRN Reason: Anxiety Stop: 02/27/22 13:19 Magnesium Hydroxide (Magnesium Hydroxide Susp 30 Ml Udc) 30 ml PO DAILY PRN PRN Reason: Constipation Stop: 02/27/22 13:19 Menthol (Cough Drop (Sugar Free) Peri 24 Peri/1 Box) 1 peri BUCCAL Q2HWA PRN PRN Reason: Sore Throat Stop: 03/02/22 10:35 Mirtazapine (Mirtazapine Tab 15 Mg Tab) 15 mg PO HS RUFINA Stop: 02/27/22 21:59 Last Admin: 01/31/22 21:35 Dose: 15 mg Documented by: Propranolol HCl (Propranolol Hcl 10 Mg Tab) 10 mg PO DAILY PRN PRN Reason: Anxiety Stop: 02/27/22 19:58 Pseudoephedrine HCl (Pseudoephedrine Hcl 30 Mg Tab) 30 mg PO Q6H PRN PRN Reason: Congestion Stop: 03/02/22 10:35 Last Admin: 02/01/22 14:14 Dose: 30 mg Documented by: Sertraline HCl (Sertraline Hcl 50 Mg Tablet) 50 mg PO QAM RUFINA Stop: 03/03/22 08:59 Last Admin: 02/01/22 09:07 Dose: 50 mg Documented by: Sodium Chloride (Sodium Chloride 0.65% Na Soln 45 Ml ([place])) 1 - 2 sprays NA PRN PRN PRN Reason: Nasal Dryness/Congestion Stop: 02/27/22 13:19 Venlafaxine HCl (Venlafaxine Hcl Xr 37.5 Mg Capxr) 37.5 mg PO DAILY RUFINA Stop: 02/02/22 09:01 Last Admin: 02/01/22 09:07 Dose: 37.5 mg Documented by: Mental Health & Subst Abuse Tx Psychiatrist Name of Psychiatrist: Osbaldo Martel Psychiatrist's Psychiatric Appointment Comment: [phone], [place] [address] Therapist Name of Therapist: Jasper Donohue Therapist's Therapy Appointment Comment: [address], [place] [address] 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
[2022-02-01] MEDS: MIRTAZAPINE TAB 15 MG TAB PO SCH (21:09)
[2022-02-02] MEDS: SERTRALINE HCL 50 MG TABLET PO SCH (08:52)
[2022-02-02] MEDS: VENLAFAXINE HCL XR 37.5 MG CAPXR PO SCH (08:53)
[2022-02-02] MEDS: CETIRIZINE HCL 10 MG TABLET PO PRN (09:58)
[2022-02-02] MEDS: PSEUDOEPHEDRINE HCL 30 MG TAB PO PRN (12:58)
--- NOTE | 2022-02-02 14:01 | Psychiatric Progress Note ---
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 Diagnostically consistent with MDD and possible BPD given rapid mood shifts/self-harm/impulsive intense SI. No evidence for BPAD as mood changes are from depressed mood to stable mood. The patient is deemed unstable and requires psychiatric hospitalization for diagnostic clarification, safety and stabilization, medication management and development of further coping skills. 02/02/22: as per Dr. Gonzalez above, tolerating medication changes (1) Suicide attempt: (2) MDD (major depressive disorder), recurrent episode, severe: (3) Self-harming behavior: (4) Post traumatic stress disorder (PTSD): (5) ADHD: 02/02/22: continue current meds and treatment plan, is referred for an IOP intake on 02/05/22. 02/01/22: last dose of Effexor in the am. safety planning. 01/31/22: continue cross taper by decreasing Effexor XR to 27.5 mg, increase sertraline to 50 mg daily. 01/30/22: Cross-taper from venlafaxine XR (decreased to 75 mg qd) to sertraline (25 mg qAM today). Discontinued ativan. Continue mirtazapine qhs. 01/29/22: The patient was admitted to the [facility] ([facility] mental health unit) on q15 min checks (behavioral with suicide precautions) for safety. The patient will participate in group, recreational, and milieu therapies and will be offered additional individual and family sessions as clinically appropriate. -Provide with [place] BPD screen -Consideration for DBT IOP if any availability/programs near his home if he chooses to withdrawal from school -Taper Effexor -Start sertraline 25mg qd -mirtazapine 15mg qhs -holding stimulants due to non-formulary and not doing school work here -ativan 0.5 mg BID prn if he develops strong urges for self-harm/intensifying SI Inventory Assets Strengths: student, supportive friends, motivated to engage in therapy Needs: additional coping skills, medication adjustment Risk Factors Assessment Male: Yes : Yes Do You Have Access To A Gun?: No Health Problems: No Mental Health Diagnoses: Yes Substance Use Disorders: No Previous Attempt: Yes Previous Attempt; Highly Lethal: Yes Family History of Suicide: No Previous Psychiatric Hospitalization: Yes Hopelessness: Yes Smoker: No Protective Factors Assessment Employed: Yes ([email or web address]) Stable Relationships: Yes Supportive Family: Yes Good Rapport with Provider: Yes Interval History Identifying Information REYNOLD MANN is a 21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 Chief Complaint "I'm getting to a better place". Review of Systems Sleep Information Total Hours of Sleep: 6.5 Sleep Comments: Sleep in safety room. Meal Information Percent Meal Consumed - Breakfast: 90 Percent Meal Consumed - Lunch: 100 Percent Meal Consumed - Dinner: 100 Subjective Subjective Patient was seen & assessed and interval progress reviewed with treatment team. He is relieved to have support in processing a retroactive medical withdrawal. He seems more accepting of return home. Relating well to peers. Doesn't feel can fully safety plan today. Physical Exam Psychiatric Orientation: alert and oriented x 3 Apperance: appropriately dressed and appropriately groomed Eye Contact: good eye contact Motor Behavior: no abnormal motor movements Speech: normal rate/rhythm/volume of speech Affect: euthymic affect Mood: + depressed mood Thought Process: goal directed thought process Thought Content: reality based without delusions Suicidal Thoughts: denies suicidal thoughts, denies suicidal plan and denies suicidal intent Homicidal Thoughts: denies homicidal thoughts Hallucinations: no auditory hallucinations and no visual hallucinations Cognition: recent memory grossly intact, remote memory grossly intact, attention grossly intact and language grossly intact Estimated Intelligence: consistent with education level Insight: + fair insight Judgement: + limited judgement Vital Signs (Past 24 Hours) Last Vital Signs Temp 36.4 C L 02/02/22 06:44 Pulse 91 H 02/02/22 06:44 Resp 16 02/02/22 06:44 BP 127/82 02/02/22 06:44 Pulse Ox 98 01/28/22 13:37 Results & Data ([facility]) Current Inpatient Medications Current Inpatient Medications: Current Inpatient Medications Acetaminophen (Acetaminophen 325 Mg Tab) 650 mg PO Q4H PRN PRN Reason: Headache or Minor Fever Stop: 02/27/22 13:19 Last Admin: 01/31/22 11:16 Dose: 650 mg Documented by: Al Hydrox/Mg Hydrox/Simethicone (Aluminum/Magnesium Susp 30 Ml Udc) 30 ml PO Q4H PRN PRN Reason: GI Upset Stop: 02/27/22 13:19 Bismuth Subsalicylate (Bismuth Subsalicylate Liqd 236 Ml) 15 ml PO PRN PRN PRN Reason: Loose Stool Stop: 02/27/22 13:19 Cetirizine HCl (Cetirizine Hcl 10 Mg Tablet) 10 mg PO DAILY PRN PRN Reason: Congestion Stop: 02/27/22 19:58 Last Admin: 02/02/22 09:58 Dose: 10 mg Documented by: Hydroxyzine HCl (Hydroxyzine Hcl 25 Mg Tab) 50 mg PO HSZ PRN PRN Reason: Insomnia Stop: 02/27/22 13:19 Hydroxyzine HCl (Hydroxyzine Hcl 25 Mg Tab) 25 mg PO Q4H PRN PRN Reason: Anxiety Stop: 02/27/22 13:19 Magnesium Hydroxide (Magnesium Hydroxide Susp 30 Ml Udc) 30 ml PO DAILY PRN PRN Reason: Constipation Stop: 02/27/22 13:19 Menthol (Cough Drop (Sugar Free) Peri 24 Peri/1 Box) 1 peri BUCCAL Q2HWA PRN PRN Reason: Sore Throat Stop: 03/02/22 10:35 Mirtazapine (Mirtazapine Tab 15 Mg Tab) 15 mg PO HS RUFINA Stop: 02/27/22 21:59 Last Admin: 02/01/22 21:09 Dose: 15 mg Documented by: Propranolol HCl (Propranolol Hcl 10 Mg Tab) 10 mg PO DAILY PRN PRN Reason: Anxiety Stop: 02/27/22 19:58 Pseudoephedrine HCl (Pseudoephedrine Hcl 30 Mg Tab) 30 mg PO Q6H PRN PRN Reason: Congestion Stop: 03/02/22 10:35 Last Admin: 02/02/22 12:58 Dose: 30 mg Documented by: Sertraline HCl (Sertraline Hcl 50 Mg Tablet) 50 mg PO QAM RUFINA Stop: 03/03/22 08:59 Last Admin: 02/02/22 08:52 Dose: 50 mg Documented by: Sodium Chloride (Sodium Chloride 0.65% Na Soln 45 Ml ([place])) 1 - 2 sprays NA PRN PRN PRN Reason: Nasal Dryness/Congestion Stop: 02/27/22 13:19 Mental Health & Subst Abuse Tx Psychiatrist Name of Psychiatrist: Osbaldo Martel Psychiatrist's Date of Appointment with Psychiatrist: 02/24/22 Time of Appointment with Psychiatrist: 9:00 a.m. Psychiatric Appointment Comment: Telehealth Therapist Name of Therapist: Jasper Donohue Therapist's Date of Therapist Appointment: 02/04/22 Time of Therapist Appointment: 10:30 a.m. Therapy Appointment Comment: Telehealth Skin Therapist Name of Skin Therapist: . Post Discharge Appointments Primary Care Physician Name Of Family Doctor: [facility] - Tahira Campbell Primary Care Time of Appointment with PCP: Please follow up as needed Provider Appointment Comment: [address] [facility] [address] [facility], [place] [address] Contact Information Discharge Discharge Address: [address] [place] [address] [facility] [address], [place], [place] Contact Information Comment: Home Address: [address] [place] [address]
[2022-02-02] MEDS: MIRTAZAPINE TAB 15 MG TAB PO SCH (21:32)
--- NOTE | 2022-02-03 09:10 | Discharge Summary ---
Date of Service February 03, 2022 History of Present Illness As per Dr. Gonzalez on admission: Giles presents for psychiatric admission after recent hanging attempt on 01/25/22 and then another suicide attempt via hanging on 01/27/22 using a belt around the shower delmy which was interrupted by shower delmy falling and roommate intervening. Ongoing current stressors including academic stress/failing classes, feeling unsupported by family, and interpersonal strain. He states the suicide attempts were "very impulsive" but "still today I just don't want to be here, I've tried so many things and I'm just done". He states when he tried to attempt suicide "it didn't work, it wasn't as quick and easy as I thought it would be it". While in the ED he also endorsed SI with plan to overdose and had been researching other ways effectively complete suicide. He states he's been doing his own research while in the impulsive mind set" of "easiest ways to kill yourself" and he considering taking a bottle of acetaminophen but then read "it's unlikely you'll even and would just be in a lot of pain". He was admitted to [facility] [place] in September 2021 and was started on medication for depression. States that last week "I was on top of the world, going to class, socializing, I was in a good mood, I was exercising again, I was doing my extracurricular, I was just happy". However then something shifted on 01/25/22 "I don't know, that's what I'm confused about, I think I started overthinking again" and then he felt very depressed but then on 01/26/22 "I was fine again" but then on 01/27/22 "I wasn't again" and now "I'm very depressed". He notes the shift in his mood can happen quickly, some days he'll be depressed the whole day and when he's happy it can last one day to a week but sometimes his mood can shift hour to hour. The last few days he had some interpersonal stressors including argument with his r oommate and his parents. He felt "a lot of energy built up inside me and I lashed out at him (roommate) and was mean and that bothered me because I'm not a mean person". He talked to his parents about possibly withdrawing and returning home and was encouraged to stay and get through the semester and they then decreased contact with him which has felt "really upsetting" and he feels like it's a very controlling relationship and "toxic" as they financially support him but he feels they don't understand how challenging things have been. He also feels they minimize his past trauma experiences and are unable to understand his mood shifts. The mood shifts also make it hard for his friends to relate and understand his struggles. Has been self-harming over the last few days by scratching his arms and using scissors and a razor. Depressive symptoms during periods of low mood including increased sleep, fatigue, difficulty with concentration, decreased motivation, hopelessness, helplessness, anhedonia and SI with plan of hanging. Anxiety has been "nonexistent", "I don't really feel anything". He's been feeling more "numb" including currently. Yesterday on admission he felt "embarrassed to be back here" and "I don't want to be here but I know if I wasn't I'd be ". This caused him to feel increasingly suicidal and had urges to self-harm. He was given ativan prn with good relief and ability to safety plan. School has been challenging due to deferring last semester and not being able to catch up on work from last semester and now is on the edge of failing this semester. States he's been talking to student care and advocacy and student disability services but feels like this hasn't been helpful and that "I'm basically on my own". He doesn't think the semester is salvageable at this point, even after dropping some classes to go down to 10 credits. He feels his outpatient resources are not providing enough support since therapy is only every other week due to her scheduling. He liked the weekly therapy. He feels that psychiatric management is not going well because he can't get through when he needs medication refills and doesn't hear back. This has caused him to go days at times without Effexor and experience withdrawal effects which "further messes with my brain". Effexor doesn't seem to help but hard to tell due to running out of scripts and not being able to get refills. Continues to find mirtazapine very helpful for sleep. Not taking propranolol due to no current anxiety. His primary care doctor started him on ADHD medications of Concerta and afternoon ritalin IR. Psychiatric ROS notable for denial of rony, denial psychosis, denial eating disorder. Physical Exam Psychiatric See admission H&P and DOD assessment. Vital Signs (Past 24 Hours) Last Vital Signs Temp 36.9 C 02/03/22 06:45 Pulse 98 H 02/03/22 06:46 Resp 16 02/03/22 06:45 BP 124/84 02/03/22 06:46 Pulse Ox 98 01/28/22 13:37 Principal Diagnosis major depressive disorder Psychiatric Data See daily stay summary. In short, safety was maintained and the patient was cooperative with care. Medication changes included discontinuation of Remeron and cross taper of Effexor XR to Zoloft and they tolerated this well. A family session was held with mother and safety plan was completed prior to discharge. A retroactive medical withdrawal was processed with plan to defer grades this semester, return home to recover and complete work over time. Day of Discharge Assessment Today the patient voices readiness for discharge. They note improvement in mood and deny thoughts to harm self or others. Thoughts remain organized and they are improved from admission. There is no evidence of psychosis. They agree to take mediations as prescribed and keep follow-up appointments. They are stable for discharge to outpatient level of care. Transition of Care Transition Of Care Record: was reviewed with the patient Advance Directives Advance Directives Information Provided: Yes Advance Directives: No Mental Health Advance Directive: No Advance Directives on File: No Living Will: No Power of Laborer Drying Department: No Advance Directives Reason:: Declines as Mental Health Visit. Risk Factors Assessment Male: Yes : Yes Do You Have Access To A Gun?: No Health Problems: No Mental Health Diagnoses: Yes Substance Use Disorders: No Previous Attempt: Yes Previous Attempt; Highly Lethal: Yes Family History of Suicide: No Previous Psychiatric Hospitalization: Yes Hopelessness: Yes Smoker: No Protective Factors Assessment Employed: Yes ([employer]) Stable Relationships: Yes Supportive Family: Yes Good Rapport with Provider: Yes Tobacco Cessation at Discharge Tobacco Cessation Medication Prescribed at Discharge: Not Applicable/Non-Smoker Total Time Total Time Spent: Greater Than 30 Minutes Total Time Includes: Examination of the patient, Discharge Planning and Medication Reconciliation Discharge Data Lab Results 0301/28/22 01/28/22 00:33 00:33 00:33 WBC 7.11 RBC 5.27 Hgb 16.5 Hct 48.3 MCV 91.7 MCH 31.3 MCHC 34.2 RDW Std Deviation 41.3 RDW Coeff of Emil 12.3 Plt Count 238 MPV 9.3 Immature Gran % (Auto) 0.1 Neut % (Auto) 53.4 Lymph % (Auto) 39.2 Ferry % (Auto) 5.3 Eos % (Auto) 1.4 Baso % (Auto) 0.6 Neut # (Auto) 3.79 Lymph # (Auto) 2.79 Ferry # (Auto) 0.38 Eos # (Auto) 0.10 Baso # (Auto) 0.04 Immature Gran # (Auto) 0.01 Sodium 137 Potassium 4.1 Chloride 103 Carbon Dioxide 29 Anion Gap 5 BUN 14 Creatinine 0.83 Est Cr Clr Drug Dosing 137.3 Est GFR ( Amer) 146.8 Est GFR (Non-Af Amer) 126.7 BUN/Creatinine Ratio 16.9 Glucose 88 Calcium 9.4 Total Bilirubin 0.4 AST 26 ALT 30 Alkaline Phosphatase 107 H Total Protein 7.6 Albumin 4.8 Globulin 2.8 Albumin/Globulin Ratio 1.7 TSH 1.383 Urine Color Urine Appearance Urine pH Ur Specific Dixon Urine Protein Urine Glucose (UA) Urine Ketones Urine Blood Urine Nitrite Urine Bilirubin Urine Urobilinogen Ur Leukocyte Esterase Salicylates Urine Opiates Screen Ur Methadone, Qual Acetaminophen Urine Barbiturates Ur Phencyclidine (PCP) U Amphetamin/Meth Scrn MDMA (Ecstasy) Screen U Benzodiazepines Scrn Ur Cocaine Metabolite U Marijuana (THC) Screen U Marijuana THC Carboxy Drug Screen Comment Ethyl Alcohol mg/dL SARS-CoV-2, RNA, NAAT 01/28/22 01/28/22 01/28/22 00:33 00:33 00:34 WBC RBC Hgb Hct MCV MCH MCHC RDW Std Deviation RDW Coeff of Emil Plt Count MPV Immature Gran % (Auto) Neut % (Auto) Lymph % (Auto) Ferry % (Auto) Eos % (Auto) Baso % (Auto) Neut # (Auto) Lymph # (Auto) Ferry # (Auto) Eos # (Auto) Baso # (Auto) Immature Gran # (Auto) Sodium Potassium Chloride Carbon Dioxide Anion Gap BUN Creatinine Est Cr Clr Drug Dosing Est GFR ( Amer) Est GFR (Non-Af Amer) BUN/Creatinine Ratio Glucose Calcium Total Bilirubin AST ALT Alkaline Phosphatase Total Protein Albumin Globulin Albumin/Globulin Ratio TSH Urine Color Yellow Urine Appearance Clear Urine pH 7.0 Ur Specific Dixon 1.022 Urine Protein Negative Urine Glucose (UA) Negative Urine Ketones Negative Urine Blood Negative Urine Nitrite Negative Urine Bilirubin Negative Urine Urobilinogen Negative Ur Leukocyte Esterase Negative Salicylates < 3.0 L Urine Opiates Screen Ur Methadone, Qual Acetaminophen < 3 L Urine Barbiturates Ur Phencyclidine (PCP) U Amphetamin/Meth Scrn MDMA (Ecstasy) Screen U Benzodiazepines Scrn Ur Cocaine Metabolite U Marijuana (THC) Screen U Marijuana THC Carboxy Drug Screen Comment Ethyl Alcohol mg/dL < 10.0 SARS-CoV-2, RNA, NAAT 01/28/22 01/28/22 01/28/22 00:34 00:34 Unknown WBC RBC Hgb Hct MCV MCH MCHC RDW Std Deviation RDW Coeff of Emil Plt Count MPV Immature Gran % (Auto) Neut % (Auto) Lymph % (Auto) Ferry % (Auto) Eos % (Auto) Baso % (Auto) Neut # (Auto) Lymph # (Auto) Ferry # (Auto) Eos # (Auto) Baso # (Auto) Immature Gran # (Auto) Sodium Potassium Chloride Carbon Dioxide Anion Gap BUN Creatinine Est Cr Clr Drug Dosing Est GFR ( Amer) Est GFR (Non-Af Amer) BUN/Creatinine Ratio Glucose Calcium Total Bilirubin AST ALT Alkaline Phosphatase Total Protein Albumin Globulin Albumin/Globulin Ratio TSH Urine Color Urine Appearance Urine pH Ur Specific Dixon Urine Protein Urine Glucose (UA) Urine Ketones Urine Blood Urine Nitrite Urine Bilirubin Urine Urobilinogen Ur Leukocyte Esterase Salicylates Urine Opiates Screen Neg Ur Methadone, Qual Neg Acetaminophen Urine Barbiturates Neg Ur Phencyclidine (PCP) Neg U Amphetamin/Meth Scrn Neg MDMA (Ecstasy) Screen Neg U Benzodiazepines Scrn Neg Ur Cocaine Metabolite Neg U Marijuana (THC) Screen Pos H U Marijuana THC Carboxy 51 H Drug Screen Comment SEE NOTE Ethyl Alcohol mg/dL SARS-CoV-2, RNA, NAAT NEGATIVE Hospital Course (1) Suicide attempt: (2) MDD (major depressive disorder), recurrent episode, severe: (3) Self-harming behavior: (4) Post traumatic stress disorder (PTSD): (5) ADHD: 02/02/22: continue current meds and treatment plan, is referred for an IOP intake on 02/05/22. 02/01/22: last dose of Effexor in the am. safety planning. 01/31/22: continue cross taper by decreasing Effexor XR to 27.5 mg, increase sertraline to 50 mg daily. 01/30/22: Cross-taper from venlafaxine XR (decreased to 75 mg qd) to sertraline (25 mg qAM today). Discontinued ativan. Continue mirtazapine qhs. 01/29/22: The patient was admitted to the [facility] ([facility] mental [facility] unit) on q15 min checks (behavioral with suicide precautions) for safety. The patient will participate in group, recreational, and milieu therapies and will be offered additional individual and family sessions as clinically appropriate. -Provide with [place] BPD screen -Consideration for DBT IOP if any availability/programs near his home if he chooses to withdrawal from school -Taper Effexor -Start sertraline 25mg qd -mirtazapine 15mg qhs -holding stimulants due to non-formulary and not doing school work here -ativan 0.5 mg BID prn if he develops strong urges for self-harm/intensifying SI Mental Health & Subst Abuse Tx Psychiatrist Name of Psychiatrist: Osbaldo Martel Psychiatrist's Date of Appointment with Psychiatrist: 02/24/22 Time of Appointment with Psychiatrist: 9:00 a.m. Psychiatric Appointment Comment: Telehealth Therapist Name of Therapist: Jasper Donohue Therapist's Date of Therapist Appointment: 02/04/22 Time of Therapist Appointment: 10:30 a.m. Therapy Appointment Comment: Telehealth Engineering Consultant Name of Engineering Consultant: . Post Discharge Appointments Primary Care Physician Name Of Family Doctor: [facility] - Tahira [facility] Time of Appointment with PCP: Please follow up as needed Provider Appointment Comment: [address] [facility], [place] [address] Smoking Cessation Counseling Tobacco Cessation Medication Prescribed at Discharge: Not Applicable/Non-Smoker Other #1: Name of Aftercare Appointment: [facility] - [place] Phone Number of Aftercare Appointment: [phone] Date of Aftercare Appointment: 02/05/22 Time of Aftercare Appointment: 1:00 p.m. Aftercare Appointment Comment: Teams link sent to your email #2: Name of Aftercare Appointment: Bryce Sanchez - IOP Phone Number of Aftercare Appointment: [phone] Date of Aftercare Appointment: 02/05/22 Time of Aftercare Appointment: 3:30p Aftercare Appointment Comment: Zoom link sent via email #3: Name of Aftercare Appointment: Potential Psychiatry Options: [facility] Phone Number of Aftercare Appointment: [phone] Aftercare Appointment Comment: Unclear on telehealth option: [address] [facility], [place] #4: Name of Aftercare Appointment: Potential Psychiatry Options: [facility] Phone Number of Aftercare Appointment: [phone] Aftercare Appointment Comment: [address] [facility] Contact Information Discharge Discharge Address: [address] [place] [address], [place] Contact Information Comment: Home Address: [address] [place] [id number] Discharge Plan Discharge Items Patient Disposition: Home - Self-Care Reason For Visit: MDD Discharge Diagnosis: major depressive disorder Activity: Resume your previous activity Non-emergency contact: Primary Care Provider, Psychiatrist and Therapist Call non-emergency contact if: you have any medication questions and your symptoms worsen Follow-up/Referrals: [facility] [Primary Care Provider] - Diet: Regular Addtl Attending Provider Instructions: SPECIAL CARE INSTRUCTIONS: 1. Follow through with your scheduled aftercare appointments. If unable to keep an appointment, please call to reschedule. 2. Take your medication only as prescribed. Medication should not be changed or stopped without the approval of your doctor. In the event of worsening symptoms or concerns about side effects, contact your doctor immediately. 3. Utilize new healthy coping skills, anger management skills, and stress management skills learned during your hospitalization. Journal feelings and process them with a support person. Identify stressors or situations that may result in relapse, deterioration or inappropriate behaviors and develop a plan to deal with those issues. 4. If your coping skills are ineffective and you are in crisis, contact your outpatient providers for direction. If unable to reach your providers, please call the [facility] CRISIS LINE AT , go to the [facility] walk-in center at [address] [facility] [facility] [address], [address], [place], or go to the closest Emergency Room. 5. Avoid alcohol and un-prescribed drugs. 6. You have been provided with the Mental Health Advance Directives Pamphlet for your review. 7. Your condition is stable for discharge to outpatient level of care, but recovery is an ongoing process. Ifthoughts to harm yourself or others return, follow the safety plan developed during your stay. Planning for a safe return home includes securing weapons. Our treatment team recommends weaponsbe removed from the home until your outpatient provider reassesses your progress. In rare cases where the items themselvescannot be removed, guns and ammunitionshould be secured separatelyand keys stored by a reliable personoutside of the home. If you were admitted on an involuntary commitment, the police or other legal authorities may be involved in this process. AFTERCARE APPOINTMENTS: * Please call your insurance company prior to your scheduled appointment to confirm your aftercare providers are covered. Take your insurance information to your appointments. WHO TO CALL AND WHEN: Medical Emergencies: For questions or emergencies related to your hospital stay, please contact the Inpatient Behavioral Health Unit at [phone]. A utility hand is on-call 31/05 for the Behavioral Health Unit for emergencies At any time you feel your situation is an emergency, you may also call 911 immediately. Pending Studies at Discharge: No Stand-Alone Forms: My [facility] Textádo, Smoking Cessation Medications and DC Order Prescriptions: New hydroxyzine HCl 25 mg Tablet 25 mg PO Q4H PRN (Reason: Anxiety) 15 Days RF: 1 sertraline 50 mg Tablet 50 mg PO QAM 30 Days Qty: 30 RF: 0 Continued cetirizine [Zyrtec] 10 mg Tablet 10 mg PO DAILY PRN (Reason: Congestion) RF: 0 methylphenidate HCl 10 mg tablet 10 mg PO DAILY PRN (Reason: NEEDED) RF: 0 methylphenidate HCl 36 mg tablet extended release 24hr 36 mg PO DAILY RF: 0 mirtazapine 15 mg tablet 15 mg PO HS 30 Days Qty: 30 RF: 0 Discontinued venlafaxine 150 mg capsule,extended release 24hr 150 mg PO DAILY RF: 0 propranolol 10 mg tablet 10 mg PO DAILY PRN (Reason: Anxiety) RF: 0 Discharge Orders: Discharge Order (Routine); Ordered 02/03/22 Ordered By: Alva Louise Admission Data Admit Date/Time: 01/28/22 13:20 Attending Provider: Alva Louise Admit Provider: Tamie Gonzalez Primary Care Provider: [facility] Other Interventions: Discharge Summary Assessment (RN) Last Done: 02/03/22 09:55 PSY Interdisciplinary Discharge Planning Last Done: 02/03/22 09:32 Coding Level of Care Code 76725 D/C day mgmt > 30 min Diagnoses Suicide attempt T14.91XA MDD (major depressive disorder), recurrent episode, severe F33.2 Self-harming behavior Post traumatic stress disorder (PTSD) F43.10 ADHD F90.9
[2022-02-03] MEDS: SERTRALINE HCL 50 MG TABLET PO SCH (09:14)
[2022-02-03] MEDS: CETIRIZINE HCL 10 MG TABLET PO PRN (10:02)
== END 2022-02-03 12:50 | disposition home or self-care (01) | DRG 885 ==
LOC: ED 00:03 → SUATTDRO 13:20 → 3S 13:20
DX: T14.91XA Suicide attempt, initial encounter; F43.10 Post-traumatic stress disorder, unspecified; F32.2 Major depressive disorder, single episode, severe without psychotic features; F90.9 Attention-deficit hyperactivity disorder, unspecified type; Y92.039 Unspecified place in apartment as the place of occurrence of the external cause; Z91.51 Personal history of suicidal behavior; X83.8XXA Intentional self-harm by other specified means, initial encounter

== ENCOUNTER 2023-03-12 19:39 | Observation (INO) ==
[2023-03-12] MEDS ORDERED: ONDANSETRON INJ 2 MG/ML 2 ML VIAL IV STA (20:05)
[2023-03-12] MEDS ORDERED: KETOROLAC TROMETHAMINE 15 MG/ML VIAL IV STA (20:19)
[2023-03-12] MEDS ORDERED: SODIUM CHLORIDE 0.9% 1000ML 1,000 ML IV ONE (20:19)
--- NOTE | 2023-03-12 20:38 | Emergency Department Note ---
History of Present Illness General Chief Complaint: Abdominal Pain Stated Complaint: ABDOMINAL PAIN,FEVER,DIARREAH,LOSS OF APPETITE Time Seen by Provider: 03/12/23 20:06 History of Present Illness Provider Complaint: abdominal pain Onset (ago): 1 week(s) Pain Consistency: intermittent Location: diffuse Severity: moderate Maximum Pain Intensity: 5 Current Pain Intensity: 5 Quality: + cramping, + stabbing and + sharp Relieved By: + nothing Exacerbated By: + nothing Context: no foreign travel, no possible food poisoning, no sick contacts, no recent antibiotic use, no recent surgery/procedure or no recent injury Associated Symptoms: + nausea, + diarrhea and + fever; no constipation, no dysuria, no hematemesis, no hematochezia, no melena, no hematuria, no back pain, no chest pain and no breathing difficulty Home Medications Medication Instructions Recorded Confirmed Type aripiprazole 2 mg tablet 2 mg PO HS 03/12/23 03/12/23 History bupropion HCl 100 mg tablet,12 hr 100 mg PO QAM 03/12/23 03/12/23 History sustained-release methylphenidate HCl 40 mg biphasic 40 mg PO DAILY 03/12/23 03/12/23 History 50-50 capsule,extended release mirtazapine 15 mg tablet 15 mg PO HS PRN Sleep 03/12/23 03/12/23 History ondansetron 8 mg disintegrating 8 mg translingual DAILY PRN Nausea 03/12/23 03/12/23 History tablet Allergies Allergy/AdvReac Type Severity Reaction Status Date / Time No Known Allergies Allergy Verified 03/12/23 21:17 Past Med/Surg History Medical History ADHD Anxiety Depression Depression with suicidal ideation GERD (gastroesophageal reflux disease) Self-harming behavior Suicide attempt Surgical History No history of previous surgery Family History Denies family history of Crohn's disease Colorectal cancer Ulcerative colitis Social History Smoking Status: Current every day smoker Tobacco Type: Cigarettes Second Hand Exposure: No; Do You Dip or Chew Tobacco: No; Hx Alcohol Use: No Hx Substance Use: No Preferred Language: Khmer 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 Beliefs That Will Affect Care: None Current Living Situation: Other Current Living Situation Comment: off campus, has roommates Feels Safe at Home: Yes Assistive Devices: Contacts and Glasses Physical Exam Vital Signs: Vital Signs - 24 hr 03/12/23 19:49 03/12/23 20:50 03/12/23 22:00 Temperature 36.7 C Temperature Source Oral Pulse Rate 110 H Pulse Rate [Finger ] 87 Respiratory Rate 20 18 Respiratory Depth Normal Blood Pressure 141/80 H Blood Pressure [Ri ght Arm] 133/85 Blood Pressure Hilary n 100 Blood Pressure Hilary n [Right Arm] 101 Pulse Oximetry 96 98 96 Oxygen Delivery Me thod Room Air Room Air Sepsis Recent Feve r Within 48 Hours No Sepsis New/Unexpla ined Change in Men jameel Status No Sepsis Action Take n by Nursing No Action Required Physical Exam: Physical Exam HENT: Exam performed. - Head: Normocephalic and atraumatic. - Right Ear: External ear normal. No mastoid erythema - Left Ear: External ear normal. No mastoid erythema EYES: Conjunctivae and EOM are normal. Right eye exhibits no discharge. Left eye exhibits no discharge. No scleral icterus. NECK: Normal range of motion. Neck supple. No spinous process tenderness present. No tracheal deviation and normal range of motion present. CV: Normal rate, regular rhythm, normal heart sounds and intact distal pulses. There is no peripheral edema. Palpable radial pulses bue. PULM/CHEST: Effort normal and breath sounds normal. No respiratory distress. No stridor. He has no wheezes. He has no rales. ABD: The abdomen is soft. Bowel sounds are normal. He has no distension. No mass is present. There is tenderness to palpation of the right lower quadrant. There is no rebound, no guarding, no Subramanian's sign. Rovsig negative. MUSC/SKEL: Normal range of motion. There is no peripheral edema, tenderness or deformity. LYMPH: No cervical adenopathy. NEURO: He is alert and oriented to person, place, and time. He has normal strength. No cranial nerve deficit or sensory deficit. Coordination and gait normal. GCS eye subscore is 4. GCS verbal subscore is 5. GCS motor subscore is 6. Cerebellar tests wnl. SKIN: Skin is warm and dry. He is not diaphoretic. PSYCH: He has a normal mood and affect. Behavior is normal. Judgment and thought content normal. Course Course 2005: The patient was evaluated in room A11. A complete history and physical exam was performed Cardiac monitoring: An order was placed for continuous cardiac monitoring. The monitor shows a rate of 100 with sinus rhythm interpreted by de [id number]: Vital signs stable. Labs within normal limits with exception of stool culture positive for Salmonella. Patient does report he is having more than [address] of the abdomen shows a nonspecific right-sided colitis as well as a dilated appendix with appendicoliths. Discussed case with general surgery on-call Dr. Roberto. He states that the patient can be admitted to medicine and remain n.p.o. and that he will evaluate the patient in the a.m. if he needs any surgical intervention. Cipro IV piggyback and Flagyl IV piggyback ordered for the patient given his findings concerning for appendicitis as well as the greater than 10 stools a day with the Salmonella positive stool. 2335: [facility] hospitalist Dr. Yu's team was made aware of the patient. Administered Medications Discontinued Medications Sodium Chloride (Nss 1000ml) 1,000 mls @ 999 mls/hr IV .Q1H1M ONE Stop: 03/12/23 21:19 Last Infusion: 03/12/23 21:53 Dose: 0 mls/hr Documented By: Admin: 03/12/23 20:36 Dose: 999 mls/hr Documented By: DANIEL Ioversol (Optiray 320 100ml) 86 ml IV ONCE ONE Stop: 03/12/23 21:23 Last Admin: 03/12/23 21:22 Dose: 86 ml Documented By: DAR Ketorolac Tromethamine (Ketorolac Tromethamine 15 Mg/Ml Vial) 15 mg IV NOW STA Stop: 03/12/23 20:20 Last Admin: 03/12/23 20:36 Dose: 15 mg Documented By: DANIEL Ondansetron HCl (Ondansetron Inj 2 Mg/Ml 2 Ml Vial) 4 mg IV NOW STA Stop: 03/12/23 20:06 Last Admin: 03/12/23 20:10 Dose: 4 mg Documented By: MATTY Medical Decision Making Laboratory Data Attestation: I reviewed the patient's lab results. 03/12/23 19:57 03/12/23 20:00 Lab Results 03/12/23 03/12/23 03/12/23 Range/Units 19:57 20:00 Unknown WBC 6.86 (4.8-10.8) K/ul RBC 5.55 (4.70-6.10) M/uL Hgb 16.6 (14.0-18.0) g/dl Hct 46.5 (42.0-52.0) % MCV 83.8 (80.0-100.0) fL MCH 29.9 (25.0-34.0) pg MCHC 35.7 (32.0-36.0) g/dL RDW Std Deviation 36.2 L (36.4-46.3) fL RDW Coeff of Emil 11.9 (11.5-14.5) % Plt Count 305 (130-400) K/uL MPV 9.3 L (9.4-12.4) fL Neutrophils % (Manual) 49 % Lymphocytes % (Manual) 21 % Reactive Lymphs % (Man) 21 % Monocytes % (Manual) 6 % Eosinophils % (Manual) 1 % Basophils % (Manual) 3 % Neutrophils # (Manual) 3.36 (1.40-6.50) K/uL Total Absolute Neuts 3.36 (1.4-6.5) K/uL Lymphocytes # (Manual) 1.44 (1.2-3.4) K/uL Reactive Lymphs # 1.44 K/uL Total Abs Lymphocytes 2.88 (1.2-3.4) K/uL Monocytes # (Manual) 0.41 (0.11-0.59) K/uL Eosinophils # (Manual) 0.07 (0-0.50) K/uL Basophils # (Manual) 0.21 H (0-0.2) K/uL Tear Drop Cells 1+ Echinocytes 2+ Sodium 133 L (136-145) mmol/L Potassium 3.6 (3.5-5.1) mmol/L Chloride 98 (98-107) mmol/L Carbon Dioxide 27 (21-32) mmol/L Anion Gap 8 (3-11) BUN 6 (6-23) mg/dl Creatinine 1.01 (0.6-1.4) mg/dl Est Cr Clr Drug Dosing 111.0 ml/min Est GFR ( Amer) 121.8 ml/min Est GFR (Non-Af Amer) 105.1 ml/min BUN/Creatinine Ratio 5.9 L (10-20) Glucose 115 H (70-99(Fasting)) mg/dl Calcium 9.2 (8.6-10.3) mg/dl Total Bilirubin 1.0 (0.2-1.0) mg/dl AST 20 (13-39) U/L ALT 21 (7-52) U/L Alkaline Phosphatase 89 (34-104) U/L Total Protein 7.4 (6.0-8.3) gm/dl Albumin 4.5 (3.4-5.0) gm/dl Globulin 2.9 (2.5-4.0) gm/dl Albumin/Globulin Ratio 1.6 (0.9-2) Lipase 67 (11-82) U/L Stl C. cayetanensis PCR Not Detected (NotDetected) Stool Rotavirus A PCR Not Detected (NotDetected) Stl Adenov F 40/41 PCR Not Detected (NotDetected) Stool Astrovirus (PCR) Not Detected (NotDetected) Stool Campylobacter PCR Not Detected (NotDetected) Stool Cryptosporidium PCR Not Detected (NotDetected) Stl E.coli Shiga Tox PCR Not Detected (NotDetected) Stl Enterotoxigenic E PCR Not Detected (NotDetected) Stool EPEC (PCR) Not Detected (NotDetected) Stool EAEC (PCR) Not Detected (NotDetected) Stl E. histolytica PCR Not Detected (NotDetected) Stool Giardia Lamblia PCR Not Detected (NotDetected) Stool Salmonella PCR DETECTED A* (NotDetected) Stool Sapovirus (PCR) Not Detected (NotDetected) Stl P. shigelloides PCR Not Detected (NotDetected) Stl Shigella/EIEC PCR Not Detected (NotDetected) St Y.enterocolitica PCR Not Detected (NotDetected) Stool Vibrio (PCR) Not Detected (NotDetected) Stl Vibrio cholerae PCR Not Detected (NotDetected) Stl Norovirus GI/GII PCR Not Detected (NotDetected) Imaging Data Radiologist's Impression: Abdomen/Pelvis CT 03/12/23 20:20 CT SCAN OF THE ABDOMEN AND PELVIS WITH IV CONTRAST CLINICAL HISTORY: Right lower quadrant abdominal pain. COMPARISON STUDY: No priors. TECHNIQUE: Following the IV administration of 86 cc of Optiray 320, CT scan of the abdomen and pelvis is performed from the lung bases to the proximal femora. Images are reviewed in the axial, sagittal, and coronal planes. IV contrast was administered without complication. A dose lowering technique was utilized adhering to the principles of ALARA. CT DOSE: 306.18 mGy.cm FINDINGS: Lung bases: The heart is normal in size and without pericardial effusion. The lung bases are clear. There is a small hernia. Liver: The contrast-enhanced liver is normal in size, contour, and attenuation. There is no intrahepatic biliary ductal dilatation. The hepatic veins and portal veins are patent. Gallbladder: Unremarkable. Spleen: Normal in size and attenuation. Pancreas: Unremarkable. Adrenal glands: Unremarkable. Kidneys: The contrast enhanced kidneys are normal in size and without hydronephrosis. The kidneys enhance symmetrically. Abdominal vasculature: The abdominal aorta is normal in course and caliber. Bowel: There is no bowel obstruction. There is mild wall thickening with pericolonic inflammation seen involving the right colon. This extends from the cecum to the hepatic flexure and atypical for a nonspecific colitis. The appendix is abnormal appearance, and contains large calcified appendicoliths which measure up to 17 mm. These are best seen on axial image #304). The appendix is dilated proximally measuring up to 14 mm and is mildly thick-walled. The distal appendix is normal in caliber and there is no significant periappendiceal inflammation. Peritoneum: No retroperitoneal free air is identified. Trace free fluid is seen in the pelvis. There is a small fat-containing umbilical hernia. Lymphadenopathy: Mildly enlarged mesenteric lymph nodes in the right lower quadrant measure up to 11 mm in short axis. Pelvic viscera: The bladder, prostate, and seminal vesicles are normal as visualized. A 1.6 cm epididymal cyst is suggested on the right. Skeletal structures: No lytic or blastic lesions are seen. IMPRESSION: 1. Findings are consistent with a nonspecific colitis of the right colon. This is likely on an infectious/inflammatory basis in this age group. Correlate clinically. 2. Abnormal appendix. The appendix is dilated and mildly thick walled, and contains several large calcified appendicoliths. There is no surrounding inflammation or definitive CT evidence of acute appendicitis at this time. Surgical assessment is advised. 3. Trace free fluid in pelvis and mildly enlarged right lower quadrant mesenteric lymph nodes are likely reactive findings. 4. Additional findings as above. ACT 112: Negative or not required by law. Electronically signed by: Holland Mcgee M.D. 03/12/2023 11:06 PM [facility] Narrative 2006: The patient was evaluated in room A11. A complete history and physical exam was performed Cardiac monitoring: An order was placed for continuous cardiac monitoring. The monitor shows a rate of 100 with sinus rhythm interpreted by de [id number]: Vital signs stable. Labs within normal limits with exception of stool culture positive for Salmonella. Patient does report he is having more than [address] of the abdomen shows a nonspecific right-sided colitis as well as a dilated appendix with appendicoliths. Discussed case with general surgery on-call Dr. Roberto. He states that the patient can be admitted to medicine and remain n.p.o. and that he will evaluate the patient in the a.m. if he needs any surgical intervention. Cipro IV piggyback and Flagyl IV piggyback ordered for the patient given his findings concerning for appendicitis as well as the greater than 10 stools a day with the Salmonella positive stool. 2335: [facility] hospitalist Dr. Yu's team was made aware of the patient. Impression & Plan Colitis due to Salmonella species, Abdominal pain Discharge Plan Visit Data Chief Complaint: Abdominal Pain Stated Complaint: ABDOMINAL PAIN,FEVER,DIARREAH,LOSS OF APPETITE ED Provider: Jorge Garcia Discharge Problem: Colitis due to Salmonella species, Abdominal pain Patient Disposition: Admitted As Inpatient Forms Stand Alone Forms: [facility] Prescriptions Prescriptions: No Action bupropion HCl 100 mg tablet sustained-release 12 hr 100 mg PO QAM ondansetron 8 mg tablet,disintegrating 8 mg translingual DAILY PRN (Reason: Nausea) mirtazapine 15 mg tablet 15 mg PO HS PRN (Reason: Sleep) methylphenidate HCl 40 mg capsule,ER biphasic 50-50 40 mg PO DAILY aripiprazole 2 mg tablet 2 mg PO HS Referrals Referrals: [facility] [Primary Care Provider] -
[2023-03-12 20:56] LABS: Albumin Globulin Ratio 1.6 (0.9-2); Albumin Level 4.5 gm/dl (3.4-5.0); BUN Creatinine Ratio 5.9 (10-20); Calcium 9.2 mg/dl (8.6-10.3); Est GFR (African American) 121.8 ml/min; Est GFR (Non-African American) 105.1 ml/min; Globulin 2.9 gm/dl (2.5-4.0); Potassium 3.6 mmol/L (3.5-5.1); Total Protein 7.4 gm/dl (6.0-8.3)
[2023-03-12 21:07] LABS: Hematocrit (blood only) 46.5 % (42.0-52.0); Hemoglobin 16.6 g/dl (14.0-18.0); Mean Corpuscular Hemoglobin 29.9 pg (25.0-34.0); Mean Corpuscular Hgb Conc 35.7 g/dL (32.0-36.0); Mean Corpuscular Volume 83.8 fL (80.0-100.0); Mean Platelet Volume 9.3 fL (9.4-12.4); Platelet Count 305 K/uL (130-400); RDW Coefficient of Variation 11.9 % (11.5-14.5); RDW Standard Deviation 36.2 fL (36.4-46.3); Red Blood Count 5.55 M/uL (4.70-6.10); White Blood Count 6.86 K/ul (4.8-10.8)
[2023-03-12 21:08] LABS: ALC (manual) 2.88 K/uL (1.2-3.4); ANC (manual) 3.36 K/uL (1.4-6.5); Basophils # (manual) 0.21 K/uL (0-0.2); Basophils % (manual) 3 %; Echinocytes 2+; Eosinophils # (manual) 0.07 K/uL (0-0.50); Eosinophils % (manual) 1 %; Lymphocytes # (manual) 1.44 K/uL (1.2-3.4); Lymphocytes % (manual) 21 %; Monocytes # (manual) 0.41 K/uL (0.11-0.59); Monocytes % (manual) 6 %; Neutrophils # (manual) 3.36 K/uL (1.40-6.50); Neutrophils % (manual) 49 %; Reactive Lymphocytes # (manual) 1.44 K/uL; Reactive Lymphocytes % (manual) 21 %; Tear Drop Cells 1+
[2023-03-12] MEDS ORDERED: OPTIRAY 320 100ml IV ONE (21:22)
[2023-03-12 22:17] LABS: Adenovirus F 40/41 PCR Not Detected (NotDetected); Astrovirus PCR Not Detected (NotDetected); Campylobacter PCR Not Detected (NotDetected); Cryptosporidium PCR Not Detected (NotDetected); Cyclospora cayetanensis PCR Not Detected (NotDetected); Entamoeba histolytica PCR Not Detected (NotDetected); Enteroaggregative E.coli(EAEC) Not Detected (NotDetected); Enteropathogenic E.coli (EPEC) Not Detected (NotDetected); Enterotoxigenic E.coli (ETEC) Not Detected (NotDetected); Giardia lamblia PCR Not Detected (NotDetected); Norovirus GI/GII PCR Not Detected (NotDetected); Plesiomonas shigelloides PCR Not Detected (NotDetected); Rotavirus A PCR Not Detected (NotDetected); Sapovirus PCR Not Detected (NotDetected); Shiga-like Toxin E.coli (STEC) Not Detected (NotDetected); Shigella/Enteroinvasive E.coli Not Detected (NotDetected); Vibrio cholerae PCR Not Detected (NotDetected); Vibrio species PCR Not Detected (NotDetected); Yersinia enterocolitica PCR Not Detected (NotDetected)
[2023-03-12 22:18] LABS: Salmonella PCR DETECTED (NotDetected)
--- NOTE | 2023-03-12 23:08 | CT Scan Report ---
CT SCAN OF THE ABDOMEN AND PELVIS WITH IV CONTRAST CLINICAL HISTORY: Right lower quadrant abdominal pain. COMPARISON STUDY: No priors. TECHNIQUE: Following the IV administration of 86 cc of Optiray 320, CT scan of the abdomen and pelvi s is performed from the lung bases to the proximal femora. Images are reviewed in the axial, sagittal , and coronal planes. IV contrast was administered without complication. A dose lowering technique wa s utilized adhering to the principles of ALARA. CT DOSE: 306.18 mGy.cm FINDINGS: Lung bases: The heart is normal in size and without pericardial effusion. The lung bases are clear. T here is a small hernia. Liver: The contrast-enhanced liver is normal in size, contour, and attenuation. There is no intrahepa tic biliary ductal dilatation. The hepatic veins and portal veins are patent. Gallbladder: Unremarkable. Spleen: Normal in size and attenuation. Pancreas: Unremarkable. Adrenal glands: Unremarkable. Kidneys: The contrast enhanced kidneys are normal in size and without hydronephrosis. The kidneys enh ance symmetrically. Abdominal vasculature: The abdominal aorta is normal in course and caliber. Bowel: There is no bowel obstruction. There is mild wall thickening with pericolonic inflammation see n involving the right colon. This extends from the cecum to the hepatic flexure and atypical for a no nspecific colitis. The appendix is abnormal appearance, and contains large calcified appendicoliths which measure up to 17 mm. These are best seen on axial image #304). The appendix is dilated proximal ly measuring up to 14 mm and is mildly thick-walled. The distal appendix is normal in caliber and the re is no significant periappendiceal inflammation. Peritoneum: No retroperitoneal free air is identified. Trace free fluid is seen in the pelvis. There is a small fat-containing umbilical hernia. Lymphadenopathy: Mildly enlarged mesenteric lymph nodes in the right lower quadrant measure up to 11 mm in short axis. Pelvic viscera: The bladder, prostate, and seminal vesicles are normal as visualized. A 1.6 cm epidid ymal cyst is suggested on the right. Skeletal structures: No lytic or blastic lesions are seen. IMPRESSION: 1. Findings are consistent with a nonspecific colitis of the right colon. This is likely on an infect ious/inflammatory basis in this age group. Correlate clinically. 2. Abnormal appendix. The appendix is dilated and mildly thick walled, and contains several large chance cified appendicoliths. There is no surrounding inflammation or definitive CT evidence of acute append icitis at this time. Surgical assessment is advised. 3. Trace free fluid in pelvis and mildly enlarged right lower quadrant mesenteric lymph nodes are lik charles reactive findings. 4. Additional findings as above. ACT 112: Negative or not required by law. Electronically signed by: Holland Mcgee M.D. 03/12/2023 11:06 PM
--- NOTE | 2023-03-12 23:25 | Communication Note ---
Date of Service: March 12, 2023 Pnt discussed with ED attending, labs and imaging reviewed. 1 week history of diarrhea and abd pain, worsened of past 24 hours. Normal wbc. stool study pos for salmonella. CT with right sided colitis, also large appendicolith with dilated appendix but no active inflammation. Given history, more likely acute salmonella colitis. Recommend admission to medical service, abx as indicated. Surgery will follow. Full consult pending in AM
[2023-03-12] MEDS ORDERED: CIPROFLOXACIN / D5W 400 MG/200 ML BAG IV STA (23:26)
[2023-03-12] MEDS ORDERED: metroNIDAZOLE 500 MG/100 ML BAG IV STA (23:26)
[2023-03-12] MEDS ORDERED: SODIUM CHLORIDE 0.9% 1000ML 1,000 ML IV SCH (23:30)
--- NOTE | 2023-03-12 23:36 | History & Physical Report ---
Date of Service March 12, 2023 Assessment & Plan (1) Colitis due to Salmonella species: Plan: -Pt hemodynamically stable, not septic on admission -Stool PCR positive for salmonella with CTAP findings of nonspecific R colitis -NPO, IVF- LR 125 cc/hr -Continue IV abx- ciprofloxacin/Flagyl -Zofran PRN nausea -Surgery consult in AM (2) Abdominal pain: Plan: -As above, likely due to salmonella colitis -CTAP findings include appendix dilation + wall thickening w/ several calcified appendicoliths but no definitive evidence of acute appendicitis -Fluids, IV abx as above -Pain control- Toradol PRN, IV Tylenol PRN -Surgery consult pending in AM (3) Hyponatremia: Plan: -Na 133 on admission -Likely hypovolemic hyponatremia from GI losses -IV hydration -Trend BMP (4) ADHD: Plan: -Holding home medications while NPO (5) Post traumatic stress disorder (PTSD): Plan: -Holding home medications while NPO (6) MDD (major depressive disorder), recurrent episode, severe: Plan: -Holding home medications while NPO (7) GERD (gastroesophageal reflux disease): Plan: -Noted history on chart review but no PPI on home medications -Will give pantoprazole 40 mg IV while NPO for gastric protection while on antibiotics Plan FENGI: NPO pending surgery evaluation in AM Code status: Full DVT ppx: Low-risk, ambulation Isolation: None Dispo: Medical/surgical History of Present Illness Chief Complaint: Diarrhea Primary Care Provider: [facility] Pt is 23 yo M with PMH MDD, ADHD, PTSD presenting with diarrhea. Pt reports he ate a chicken dish from local establishment [facility] the evening of 03/03. He did eat at this restaurant multiple times in past without issue. Later that night he awoke with NBNB emesis. Since then, he experienced abdominal cramps, subjective fever, chills, body aches, nausea, reduced appetite and 10+ watery bowel movements per day. All symptoms resolved by 03/05 aside from abdominal cramps and diarrhea, which persist. He never experienced similar symptoms before. Denies recent travel or sick contacts, no recent antibiotic use. Pt arrived to ER hemodynamically stable. Initial evaluation significant for Na 133, stool PCR positive for salmonella. CTAP demonstrated nonspecific colitis of R colon, appendix dilation + wall thickening w/ several appendicoliths but no definitive evidence of acute appendicitis. ER interventions include Zofran, 1L NSS bolus, Toradol, ciprofloxacin/Flagyl IV. At present, pt reports continued abdominal pain of 2/10 severity due to receiving pain medication shortly prior. Denies any new symptoms. Allergies Allergy/AdvReac Type Severity Reaction Status Date / Time No Known Allergies Allergy Verified 03/12/23 21:17 Home Medications Medication Instructions Recorded Confirmed Type aripiprazole 2 mg tablet 2 mg PO HS 03/12/23 03/12/23 History bupropion HCl 100 mg tablet,12 hr 100 mg PO QAM 03/12/23 03/12/23 History sustained-release methylphenidate HCl 40 mg biphasic 40 mg PO DAILY 03/12/23 03/12/23 History 50-50 capsule,extended release mirtazapine 15 mg tablet 15 mg PO HS PRN Sleep 03/12/23 03/12/23 History ondansetron 8 mg disintegrating 8 mg translingual DAILY PRN Nausea 03/12/23 03/12/23 History tablet Past Med/Surg History Medical History (Updated 03/12/23 @ 23:54 by Sharyn Badillo MD) ADHD Anxiety Depression Depression with suicidal ideation GERD (gastroesophageal reflux disease) Self-harming behavior Suicide attempt Surgical History No history of previous surgery Family History Denies family history of Crohn's disease Colorectal cancer Ulcerative colitis Social History Smoking Status: Never smoker Tobacco Type: Cigarettes Second Hand Exposure: No; Do You Dip or Chew Tobacco: No; Hx Alcohol Use: Yes Alcohol type: beer Hx Substance Use: No Preferred Language: Citizen Of [place] Communication Ability: Effective 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: No Beliefs That Will Affect Care: None Current Living Situation: Other Current Living Situation Comment: off campus, has roommates Feels Safe at Home: Yes Safety Concerns: Feels Safe At This Time Assistive Devices: None Review of Systems Review of Systems: Per HPI Physical Exam Physical Exam: General: well-appearing, no acute distress HEENT: PERRL, EOMI, conjunctivae clear without injection, anicteric sclerae, moist mucous membranes, clear oropharynx without exudate or erythema Neck: supple, trachea midline, no thyromegaly, no JVD, no cervical lymphadenopathy CV: RRR, normal S1 and S2, no murmurs Resp: CTAB, no increased work of breathing, no crackles or wheezes Abd: Soft, +mild periumbilical + RLQ tenderness, no McBurney point tenderness, nondistended, no guarding or rebound, no hepatosplenomegaly MSK: Normal bulk of all four extremities Neuro: AOx3, no focal motor or sensory deficits Skin: no rashes or lesions, warm and dry Ext: no LE peripheral edema or erythema, capillary refill <2s in all four extremities, 2+ LE peripheral pulses b/l Results & Data Results & Data Vital Signs (Past 12 Hours) Vital Signs Temp Pulse Pulse Resp BP BP Pulse Ox 03/12/23 22:00 87 18 133/85 96 03/12/23 20:50 98 03/12/23 19:49 36.7 C 110 H 20 141/80 H 96 O2 Del Method 03/12/23 22:00 03/12/23 20:50 Room Air 03/12/23 19:49 Room Air Laboratory Results Laboratory Results WBC 6.86 K/ul (4.8-10.8) 03/12/23 19:57 RBC 5.55 M/uL (4.70-6.10) 03/12/23 19:57 Hgb 16.6 g/dl (14.0-18.0) 03/12/23 19:57 Hct 46.5 % (42.0-52.0) 03/12/23 19:57 MCV 83.8 fL (80.0-100.0) 03/12/23 19:57 MCH 29.9 pg (25.0-34.0) 03/12/23 19:57 MCHC 35.7 g/dL (32.0-36.0) 03/12/23 19:57 RDW Std Deviation 36.2 fL (36.4-46.3) L 03/12/23 19:57 RDW Coeff of Emil 11.9 % (11.5-14.5) 03/12/23 19:57 Plt Count 305 K/uL (130-400) 03/12/23 19:57 MPV 9.3 fL (9.4-12.4) L 03/12/23 19:57 Neutrophils % (Manual) 49 % 03/12/23 19:57 Lymphocytes % (Manual) 21 % 03/12/23 19:57 Reactive Lymphs % (Man) 21 % 03/12/23 19:57 Monocytes % (Manual) 6 % 03/12/23 19:57 Eosinophils % (Manual) 1 % 03/12/23 19:57 Basophils % (Manual) 3 % 03/12/23 19:57 Neutrophils # (Manual) 3.36 K/uL (1.40-6.50) 03/12/23 19:57 Total Absolute Neuts 3.36 K/uL (1.4-6.5) 03/12/23 19:57 Lymphocytes # (Manual) 1.44 K/uL (1.2-3.4) 03/12/23 19:57 Reactive Lymphs # 1.44 K/uL 03/12/23 19:57 Total Abs Lymphocytes 2.88 K/uL (1.2-3.4) 03/12/23 19:57 Monocytes # (Manual) 0.41 K/uL (0.11-0.59) 03/12/23 19:57 Eosinophils # (Manual) 0.07 K/uL (0-0.50) 03/12/23 19:57 Basophils # (Manual) 0.21 K/uL (0-0.2) H 03/12/23 19:57 Tear Drop Cells 1+ 03/12/23 19:57 Echinocytes 2+ 03/12/23 19:57 Sodium 133 mmol/L (136-145) L 03/12/23 20:00 Potassium 3.6 mmol/L (3.5-5.1) 03/12/23 20:00 Chloride 98 mmol/L (98-107) 03/12/23 20:00 Carbon Dioxide 27 mmol/L (21-32) 03/12/23 20:00 Anion Gap 8 (3-11) 03/12/23 20:00 BUN 6 mg/dl (6-23) 03/12/23 20:00 Creatinine 1.01 mg/dl (0.6-1.4) 03/12/23 20:00 Est Cr Clr Drug Dosing 111.0 ml/min 03/12/23 20:00 Est GFR ( Amer) 121.8 ml/min 03/12/23 20:00 Est GFR (Non-Af Amer) 105.1 ml/min 03/12/23 20:00 BUN/Creatinine Ratio 5.9 (10-20) L 03/12/23 20:00 Glucose 115 mg/dl (70-99(Fasting)) H 03/12/23 20:00 Calcium 9.2 mg/dl (8.6-10.3) 03/12/23 20:00 Total Bilirubin 1.0 mg/dl (0.2-1.0) 03/12/23 20:00 AST 20 U/L (13-39) 03/12/23 20:00 ALT 21 U/L (7-52) 03/12/23 20:00 Alkaline Phosphatase 89 U/L (34-104) 03/12/23 20:00 Total Protein 7.4 gm/dl (6.0-8.3) 03/12/23 20:00 Albumin 4.5 gm/dl (3.4-5.0) 03/12/23 20:00 Globulin 2.9 gm/dl (2.5-4.0) 03/12/23 20:00 Albumin/Globulin Ratio 1.6 (0.9-2) 03/12/23 20:00 Lipase 67 U/L (11-82) 03/12/23 20:00 Urine Color Yellow 03/13/23 03:01 Urine Appearance Clear (Clear) 03/13/23 03:01 Urine pH 7.0 (4.5-7.5) 03/13/23 03:01 Ur Specific [place] 1.016 (1.000-1.030) 03/13/23 03:01 Urine Protein Negative (Negative) 03/13/23 03:01 Urine Glucose (UA) Negative (Negative) 03/13/23 03:01 Urine Ketones Negative (Negative) 03/13/23 03:01 Urine Blood Negative (Negative) 03/13/23 03:01 Urine Nitrite Negative (Negative) 03/13/23 03:01 Urine Bilirubin Negative (Negative) 03/13/23 03:01 Urine Urobilinogen Negative (Negative) 03/13/23 03:01 Ur Leukocyte Esterase Negative (Negative) 03/13/23 03:01 Stl C. cayetanensis PCR Not Detected (NotDetected) 03/12/23 Unknown Stool Rotavirus A PCR Not Detected (NotDetected) 03/12/23 Unknown Stl Adenov F 40/41 PCR Not Detected (NotDetected) 03/12/23 Unknown Stool Astrovirus (PCR) Not Detected (NotDetected) 03/12/23 Unknown Stool Campylobacter PCR Not Detected (NotDetected) 03/12/23 Unknown Stool Cryptosporidium PCR Not Detected (NotDetected) 03/12/23 Unknown Stl E.coli Shiga Tox PCR Not Detected (NotDetected) 03/12/23 Unknown Stl Enterotoxigenic E PCR Not Detected (NotDetected) 03/12/23 Unknown Stool EPEC (PCR) Not Detected (NotDetected) 03/12/23 Unknown Stool EAEC (PCR) Not Detected (NotDetected) 03/12/23 Unknown Stl E. histolytica PCR Not Detected (NotDetected) 03/12/23 Unknown Stool Giardia Lamblia PCR Not Detected (NotDetected) 03/12/23 Unknown Stool Salmonella PCR DETECTED (NotDetected) A* 03/12/23 Unknown Stool Sapovirus (PCR) Not Detected (NotDetected) 03/12/23 Unknown Stl P. shigelloides PCR Not Detected (NotDetected) 03/12/23 Unknown Stl Shigella/EIEC PCR Not Detected (NotDetected) 03/12/[address].enterocolitica PCR Not Detected (NotDetected) 03/12/23 Unknown Stool Vibrio (PCR) Not Detected (NotDetected) 03/12/23 Unknown Stl Vibrio cholerae PCR Not Detected (NotDetected) 03/12/23 Unknown Stl Norovirus GI/GII PCR Not Detected (NotDetected) 03/12/23 Unknown SARS-CoV-2, RNA, NAAT NEGATIVE (NEGATIVE) 03/12/23 23:53 Impressions Abdomen/Pelvis CT 03/12/23 20:20 CT SCAN OF THE ABDOMEN AND PELVIS WITH IV CONTRAST CLINICAL HISTORY: Right lower quadrant abdominal pain. COMPARISON STUDY: No priors. TECHNIQUE: Following the IV administration of 86 cc of Optiray 320, CT scan of the abdomen and pelvis is performed from the lung bases to the proximal femora. Images are reviewed in the axial, sagittal, and coronal planes. IV contrast was administered without complication. A dose lowering technique was utilized adhering to the principles of ALARA. CT DOSE: 306.18 mGy.cm FINDINGS: Lung bases: The heart is normal in size and without pericardial effusion. The lung bases are clear. There is a small hernia. Liver: The contrast-enhanced liver is normal in size, contour, and attenuation. There is no intrahepatic biliary ductal dilatation. The hepatic veins and portal veins are patent. Gallbladder: Unremarkable. Spleen: Normal in size and attenuation. Pancreas: Unremarkable. Adrenal glands: Unremarkable. Kidneys: The contrast enhanced kidneys are normal in size and without hydronephrosis. The kidneys enhance symmetrically. Abdominal vasculature: The abdominal aorta is normal in course and caliber. Bowel: There is no bowel obstruction. There is mild wall thickening with pericolonic inflammation seen involving the right colon. This extends from the cecum to the hepatic flexure and atypical for a nonspecific colitis. The appendix is abnormal appearance, and contains large calcified appendicoliths which measure up to 17 mm. These are best seen on axial image #304). The appendix is dilated proximally measuring up to 14 mm and is mildly thick-walled. The distal appendix is normal in caliber and there is no significant periappendiceal inflammation. Peritoneum: No retroperitoneal free air is identified. Trace free fluid is seen in the pelvis. There is a small fat-containing umbilical hernia. Lymphadenopathy: Mildly enlarged mesenteric lymph nodes in the right lower quadrant measure up to 11 mm in short axis. Pelvic viscera: The bladder, prostate, and seminal vesicles are normal as visualized. A 1.6 cm epididymal cyst is suggested on the right. Skeletal structures: No lytic or blastic lesions are seen. IMPRESSION: 1. Findings are consistent with a nonspecific colitis of the right colon. This is likely on an infectious/inflammatory basis in this age group. Correlate clinically. 2. Abnormal appendix. The appendix is dilated and mildly thick walled, and contains several large calcified appendicoliths. There is no surrounding inflammation or definitive CT evidence of acute appendicitis at this time. Surgical assessment is advised. 3. Trace free fluid in pelvis and mildly enlarged right lower quadrant mesenteric lymph nodes are likely reactive findings. 4. Additional findings as above. ACT 112: Negative or not required by law. Electronically signed by: Holland Mcgee M.D. 03/12/2023 11:06 PM Supervising Physician Co-Signing Physician Notes Patient seen and examined, chart reviewed. I agree with the assessment and plan per Dr. Badillo as above. In brief, patient is a 23yo male presenting with colitis secondary to salmonella infection. Afebrile, HD stable, no blood noted in BMs. Still with ongoing diarrhea - watery - since 03/03/23. Able to tolerate oral intake. Currently with complaint of crampy abdominal pain. No focal RLQ tenderness. On exam he is afebrile, HD stable, NAD Skin - intact, no jaundice HEENT - MMM, Neck supple Heart - +S1/S2, regular Lungs - CTA anteriorly Abd - +BS, soft, mildly tender diffusely without rebound/guarding/peritonitis Ext - warm, well perfused Labs and images reviewed. No leukocytosis. CT with findings of colitis as above Assessment/Plan Salmonella colitis - ongoing diarrhea - continue Cipro and Flagyl. IVF and pain/nausea control Appendix findings - doubt acute appendicitis. General Surgery consulted from ER - appreciate assistance in management Remainder as above Resident Activity Tracking Resident Involvement: Resident Care Provided Care Provided: Adult Hospital Medicine (2) Abdominal pain Abdominal location: right lower quadrant Qualified Code(s): R10.31 - Right lower quadrant pain
[2023-03-13] MEDS ORDERED: ACETAMINOPHEN 1,000 MG/100 ML VIAL IV PRN (01:39)
[2023-03-13] MEDS ORDERED: ONDANSETRON INJ 2 MG/ML 2 ML VIAL IV PRN (01:39)
[2023-03-13] MEDS ORDERED: KETOROLAC TROMETHAMINE 15 MG/ML VIAL IV PRN (01:39)
[2023-03-13] MEDS: LACTATED RINGER'S 1,000 ML IV SCH ×2 (02:39→12:13)
[2023-03-13 04:35] LABS: Appearance Urine Clear (Clear); Bilirubin Urine Negative (Negative); Blood Urine Negative (Negative); Color Urine Yellow; Glucose Urine UA Negative (Negative); Ketones Urine Negative (Negative); Leukocyte Esterase Urine Negative (Negative); Nitrite Urine Negative (Negative); Protein Urine Negative (Negative); Specific Gravity Urine 1.016 (1.000-1.030); Urobilinogen Urine Negative (Negative)
--- NOTE | 2023-03-13 06:34 | Hospitalist Progress Note ---
Date of Service March 13, 2023 Assessment & Plan (1) Colitis due to Salmonella species: Plan: 23-year-old male who presented to [facility] on 03/12 for evaluation of ongoing diarrhea and nausea x 10 days in the setting of consumption of chicken from a fast food establishment on 03/03, subsequently found to have evidence of nonspecific colitis on CT-A/P with a positive Salmonella PCR, alongside dilated and mildly thickened appendix with appendicoliths. He remains hospitalized for IV hydration and symptom control. Salmonella Colitis Presented with approx. 10 days of watery diarrhea (initially n/v) in the setting of recent chicken consumption from fast food establishment on 03/03 - Stool PCR positive for Salmonella with CTAP findings of nonspecific colitis - Advance diet, continue NSS, and encourage PO rehydration - ABX: Transition to CFTX (from Cipro)/Flagyl in setting of Salmonella + appendix concerns --> Surgery consulted: In context of appendix issues, favoring continuation of ABX while in-house. --> Discontinue ABX when appropriate; reviewed literature, prolonged ABX exposure in Salmonella colitis can prolong carrier state - Zofran PRN nausea Appendiceal Dilation with Appendicoliths - CT-A/P demonstrated mild dilation and wall thickening of the appendix with several large appendicoliths. No definitive e/o appendicitis. - Surgery consulted: Symptom monitoring. Continue ABX while in-house. Consider outpatient elective appendectomy in 6-8 weeks post-d/c (will need F/U appt) - Continue ABX for now: CFTX/Flagyl Abdominal Pain Likely primarily from Salmonella colitis. His CT-A/P findings of appendiceal dilation and wall thickening with multiple appendicoliths are noted, but no definitive radiologic e/o appendicitis - Pain control: APAP and Zofran. Scheduled PPI. Judicious use of IV NSAIDs, opioids, antispasmodics with ongoing colitis - Otherwise as above Hypovolemic Hyponatremia Secondary to hypovolemia from acute GI illness. Na 133 on admission in setting of ongoing n/v/d, subsequently normalized on DOA#1 - Encourage PO intake, monitor BMP GERD - Noted on chart, though not on any home medications - Protonix 40mg IV daily for gastric protection while NPO --> discontinue or initiate oral equivalent once tolerating PO MDD, PTSD, ADD - Hold methylphenidate, bupropion, mirtazapine, aripiprazole - Resume when appropriate FENGI: Advance diet. NSS @ 100 x additional 1L Code status: Full DVT ppx: Low-risk, ambulation Isolation: None Dispo: Medical/surgical (2) Abdominal pain: (3) Hyponatremia: (4) ADHD: (5) Post traumatic stress disorder (PTSD): (6) MDD (major depressive disorder), recurrent episode, severe: (7) GERD (gastroesophageal reflux disease): Admission and Anticipated Discharge Date Admission Date: March 13, 2023 Supervising Physician Co-Signing Physician Notes Resident Physician Supervision Note: I independently interviewed and examined the patient and verified the esparza history and physical, reviewed labs and image studies and agree with resident findings and care plan. Subjective NAEO. Still having loose stools. Feeling hungry - but worried about eating given the reflexive diarrhea he might get. No lightheadedness, dizziness, nausea, vomiting, fevers, chills, joint pains, rash. Review of Systems Review of Systems: as per HPI Physical Exam Physical Exam: General: Well appearing 23yoM in NAD. HEENT: NCAT. - Eyes - Sclera are white, anicteric, and without injection. - Mouth - MMM - Neck - supple, no appreciable JVD Cardiac: Normal rate and regular rhythm; S1 and S2 present with no murmur detected Pulmonary: Good respiratory effort with symmetric expansion of the chest. No use of accessory muscles. Lungs were CTAB Abdominal: Normoactive bowel sounds. Abdomen was soft, nondistended, and mildly TTP in the suprapubic/LLQ region. Extremities: Upper and lower extremities are warm and well perfused. Results & Data Results & Data Vital Signs (Past 12 Hours) Vital Signs Temp Pulse Pulse Resp BP BP Pulse Ox 03/13/23 01:47 36.8 C 80 16 122/76 97 03/13/23 00:30 72 15 126/80 99 03/13/23 01:00 86 15 107/61 96 03/13/23 00:18 79 15 126/76 96 03/12/23 22:00 87 18 133/85 96 03/12/23 20:50 98 03/12/23 19:49 36.7 C 110 H 20 141/80 H 96 O2 Del Method 03/13/23 01:47 Room Air 03/13/23 00:30 Room Air 03/13/23 01:00 Room Air 03/13/23 00:18 Room Air 03/12/23 22:00 03/12/23 20:50 Room Air 03/12/23 19:49 Room Air (2) Abdominal pain Abdominal location: right lower quadrant Qualified Code(s): R10.31 - Right lower quadrant pain
[2023-03-13] MEDS ORDERED: IBUPROFEN 600 MG TAB PO PRN (06:46)
--- NOTE | 2023-03-13 06:47 | Billing Data ---
Date of Service March 13, 2023 Coding Level of Care Code 58749 INT INP/OBS CARE
[2023-03-13 07:09] LABS: Hematocrit (blood only) 41.3 % (42.0-52.0); Hemoglobin 14.4 g/dl (14.0-18.0); Mean Corpuscular Hemoglobin 29.2 pg (25.0-34.0); Mean Corpuscular Hgb Conc 34.9 g/dL (32.0-36.0); Mean Corpuscular Volume 83.8 fL (80.0-100.0); Mean Platelet Volume 8.8 fL (9.4-12.4); Platelet Count 230 K/uL (130-400); RDW Standard Deviation 36.7 fL (36.4-46.3); Red Blood Count 4.93 M/uL (4.70-6.10); White Blood Count 6.78 K/ul (4.8-10.8)
[2023-03-13 07:36] LABS: BUN Creatinine Ratio 5.3 (10-20); Calcium 8.3 mg/dl (8.6-10.3); Creatinine Clr Calc Pharmacy 119.3 ml/min; Est GFR (African American) 132.9 ml/min; Est GFR (Non-African American) 114.6 ml/min; Phosphorus 3.8 mg/dl (2.5-4.9)
[2023-03-13] MEDS: metroNIDAZOLE 500 MG/100 ML BAG IV SCH ×2 (07:59→16:54)
[2023-03-13] MEDS: ADVANCED PROBIOTIC 1250 MG CAPSULE PO SCH (09:24)
--- NOTE | 2023-03-13 10:11 | Surgery Consultation ---
Date of Consultation March 13, 2023 Assessment & Plan (1) Colitis due to Salmonella species: 23-year-old male with abdominal pain and diarrhea, likely secondary to Salmonella infection. He also has incidentally noted appendicolith with some mild dilation at this area of the appendix, but no distal inflammation. At this point I would treat him conservatively with antibiotics for his Salmonella infection which should cover his appendix as well. Once the diarrhea and inflammation resolved, he may consider interval appendectomy as an outpatient in 6 to 8 weeks. This may be performed here or at home if he returns home from [facility]. We will advance diet as tolerated, further treatment of Salmonella infection left medical team. This is diarrhea improves, his abdominal pain resolves, and he is tolerating a diet he may be discharged to home. Surgery will follow while in house. Call with questions or concerns. No surgical intervention at this time Continue antibiotics for Salmonella and to cover appendix Would consider outpatient interval appendectomy in 6 to 8 weeks Surgery will follow, call with questions or concerns (2) Abdominal pain: (3) Appendicolith: History of Present Illness Reason for Consultation: Abdominal pain, appendicolith Attending Physician: Michela Apodaca MD History of Present Illness 23-year-old male with 1 week history of diarrhea presented to the emergency department with increasing abdominal pain. He started having diarrhea last week and has progressed over that time. Denies any fevers. He also has been having some right sided and right lower quadrant abdominal pain that has increased over the past 24 hours. He presented to the emergency department where his white blood cell count was normal and he had a stool culture that was positive for Salmonella. His CT scan showed some right-sided colitis consistent with an infectious process, but also showed a large appendicolith with some mild wall thickening and dilation at the point of the appendix, with a normal distal appendix, and no periappendiceal inflammation. He was admitted to the medicine service overnight and treated with antibiotics. He had an episode of diarrhea this morning. He states his abdomen is feeling a little better. He does have a history of IBS, no prior abdominal surgery, not on any blood thinners. No family history of Crohn's or ulcerative colitis. Allergies Allergy/AdvReac Type Severity Reaction Status Date / Time No Known Allergies Allergy Verified 03/12/23 21:17 Home Medications Medication Instructions Recorded Confirmed Type aripiprazole 2 mg tablet 2 mg PO HS 03/12/23 03/12/23 History bupropion HCl 100 mg tablet,12 hr 100 mg PO QAM 03/12/23 03/12/23 History sustained-release methylphenidate HCl 40 mg biphasic 40 mg PO DAILY 03/12/23 03/12/23 History 50-50 capsule,extended release mirtazapine 15 mg tablet 15 mg PO HS PRN Sleep 03/12/23 03/12/23 History ondansetron 8 mg disintegrating 8 mg translingual DAILY PRN Nausea 03/12/2303/30 History tablet Patient History Medical History (Updated 03/13/23 @ 10:08 by Chris Roberto DO, FACS) ADHD Anxiety Appendicolith Depression Depression with suicidal ideation GERD (gastroesophageal reflux disease) Self-harming behavior Suicide attempt Surgical History No history of previous surgery Family History Denies family history of Crohn's disease Colorectal cancer Ulcerative colitis Social History Smoking Status: Never smoker Tobacco Type: Cigarettes Second Hand Exposure: No; Do You Dip or Chew Tobacco: No; Hx Alcohol Use: Yes Alcohol type: beer Hx Substance Use: No Preferred Language: Vincentian Communication Ability: Effective Gum Machine Filler Required: No Beliefs That Will Affect Care: None Current Living Situation: Other Current Living Situation Comment: off campus, has roommates Feels Safe at Home: Yes Safety Concerns: Feels Safe At This Time Assistive Devices: None Review of Systems Review of Systems: All systems reviewed & are unremarkable except as noted in HPI & below Physical Exam Constitutional: WD/WN, vitals as above Respiratory: normal respiratory effort, lungs clear to auscultation Cardiovascular: RRR, no murmur, no edema Gastrointestinal (Abdomen): Percussion/Palpation: + abdomen tender (Mild tenderness in the right lower quadrant and right abdomen) and abdomen soft; no guarding and abdomen not rigid Results & Data Vital Signs (Past 12 Hours) Vital Signs Temp Pulse Resp BP BP Pulse Ox O2 Del Method 03/13/23 07:55 37.2 C 86 16 107/69 97 Room Air 03/13/23 07:41 Room Air 03/13/23 01:47 36.8 C 80 16 122/76 97 Room Air 03/13/23 00:30 72 15 126/80 99 Room Air 03/13/23 01:00 86 15 107/61 96 Room Air 03/13/23 00:18 79 15 126/76 96 Room Air Laboratory Results Laboratory Results - last 24 hr 03/12/23 03/12/23 03/12/23 19:57 20:00 23:53 WBC 6.86 RBC 5.55 Hgb 16.6 Hct 46.5 MCV 83.8 MCH 29.9 MCHC 35.7 RDW Std Deviation 36.2 L RDW Coeff of Emil 11.9 Plt Count 305 MPV 9.3 L Neutrophils % (Manual) 49 Lymphocytes % (Manual) 21 Reactive Lymphs % (Man) 21 Monocytes % (Manual) 6 Eosinophils % (Manual) 1 Basophils % (Manual) 3 Neutrophils # (Manual) 3.36 Total Absolute Neuts 3.36 Lymphocytes # (Manual) 1.44 Reactive Lymphs # 1.44 Total Abs Lymphocytes 2.88 Monocytes # (Manual) 0.41 Eosinophils # (Manual) 0.07 Basophils # (Manual) 0.21 H Tear Drop Cells 1+ Echinocytes 2+ Sodium 133 L Potassium 3.6 Chloride 98 Carbon Dioxide 27 Anion Gap 8 BUN 6 Creatinine 1.01 Est Cr Clr Drug Dosing 111.0 Est GFR ( Amer) 121.8 Est GFR (Non-Af Amer) 105.1 BUN/Creatinine Ratio 5.9 L Glucose 115 H Calcium 9.2 Phosphorus Magnesium Total Bilirubin 1.0 AST 20 ALT 21 Alkaline Phosphatase 89 Total Protein 7.4 Albumin 4.5 Globulin 2.9 Albumin/Globulin Ratio 1.6 Lipase 67 Urine Color Urine Appearance Urine pH Ur Specific [place] Urine Protein Urine Glucose (UA) Urine Ketones Urine Blood Urine Nitrite Urine Bilirubin Urine Urobilinogen Ur Leukocyte Esterase Stl C. cayetanensis PCR Stool Rotavirus A PCR Stl Adenov F 40/41 PCR Stool Astrovirus (PCR) Stool Campylobacter PCR Stool Cryptosporidium PCR Stl E.coli Shiga Tox PCR Stl Enterotoxigenic E PCR Stool EPEC (PCR) Stool EAEC (PCR) Stl E. histolytica PCR Stool Giardia Lamblia PCR Stool Salmonella PCR Stool Sapovirus (PCR) Stl P. shigelloides PCR Stl Shigella/EIEC PCR St Y.enterocolitica PCR Stool Vibrio (PCR) Stl Vibrio cholerae PCR Stl Norovirus GI/GII PCR SARS-CoV-2, RNA, NAAT NEGATIVE 03/12/23 03/13/23 03/13/23 Unknown 03:01 06:48 WBC 6.78 RBC 4.93 Hgb 14.4 Hct 41.3 L MCV 83.8 MCH 29.2 MCHC 34.9 RDW Std Deviation 36.7 RDW Coeff of Emil 12.0 Plt Count 230 MPV 8.8 L Neutrophils % (Manual) Lymphocytes % (Manual) Reactive Lymphs % (Man) Monocytes % (Manual) Eosinophils % (Manual) Basophils % (Manual) Neutrophils # (Manual) Total Absolute Neuts Lymphocytes # (Manual) Reactive Lymphs # Total Abs Lymphocytes Monocytes # (Manual) Eosinophils # (Manual) Basophils # (Manual) Tear Drop Cells Echinocytes Sodium Potassium Chloride Carbon Dioxide Anion Gap BUN Creatinine Est Cr Clr Drug Dosing Est GFR ( Amer) Est GFR (Non-Af Amer) BUN/Creatinine Ratio Glucose Calcium Phosphorus Magnesium Total Bilirubin AST ALT Alkaline Phosphatase Total Protein Albumin Globulin Albumin/Globulin Ratio Lipase Urine Color Yellow Urine Appearance Clear Urine pH 7.0 Ur Specific [place] 1.016 Urine Protein Negative Urine Glucose (UA) Negative Urine Ketones Negative Urine Blood Negative Urine Nitrite Negative Urine Bilirubin Negative Urine Urobilinogen Negative Ur Leukocyte Esterase Negative Stl C. cayetanensis PCR Not Detected Stool Rotavirus A PCR Not Detected Stl Adenov F 40/41 PCR Not Detected Stool Astrovirus (PCR) Not Detected Stool Campylobacter PCR Not Detected Stool Cryptosporidium PCR Not Detected Stl E.coli Shiga Tox PCR Not Detected Stl Enterotoxigenic E PCR Not Detected Stool EPEC (PCR) Not Detected Stool EAEC (PCR) Not Detected Stl E. histolytica PCR Not Detected Stool Giardia Lamblia PCR Not Detected Stool Salmonella PCR DETECTED A* Stool Sapovirus (PCR) Not Detected Stl P. shigelloides PCR Not Detected Stl Shigella/EIEC PCR Not Detected St Y.enterocolitica PCR Not Detected Stool Vibrio (PCR) Not Detected Stl Vibrio cholerae PCR Not Detected Stl Norovirus GI/GII PCR Not Detected SARS-CoV-2, RNA, NAAT 03/13/23 06:48 WBC RBC Hgb Hct MCV MCH MCHC RDW Std Deviation RDW Coeff of Emil Plt Count MPV Neutrophils % (Manual) Lymphocytes % (Manual) Reactive Lymphs % (Man) Monocytes % (Manual) Eosinophils % (Manual) Basophils % (Manual) Neutrophils # (Manual) Total Absolute Neuts Lymphocytes # (Manual) Reactive Lymphs # Total Abs Lymphocytes Monocytes # (Manual) Eosinophils # (Manual) Basophils # (Manual) Tear Drop Cells Echinocytes Sodium 139 Potassium 4.0 Chloride 105 Carbon Dioxide 29 Anion Gap 5 BUN 5 L Creatinine 0.94 Est Cr Clr Drug Dosing 119.3 Est GFR ( Amer) 132.9 Est GFR (Non-Af Amer) 114.6 BUN/Creatinine Ratio 5.3 L Glucose 93 Calcium 8.3 L Phosphorus 3.8 Magnesium 2.0 Total Bilirubin AST ALT Alkaline Phosphatase Total Protein Albumin Globulin Albumin/Globulin Ratio Lipase Urine Color Urine Appearance Urine pH Ur Specific [place] Urine Protein Urine Glucose (UA) Urine Ketones Urine Blood Urine Nitrite Urine Bilirubin Urine Urobilinogen Ur Leukocyte Esterase Stl C. cayetanensis PCR Stool Rotavirus A PCR Stl Adenov F 40/41 PCR Stool Astrovirus (PCR) Stool Campylobacter PCR Stool Cryptosporidium PCR Stl E.coli Shiga Tox PCR Stl Enterotoxigenic E PCR Stool EPEC (PCR) Stool EAEC (PCR) Stl E. histolytica PCR Stool Giardia Lamblia PCR Stool Salmonella PCR Stool Sapovirus (PCR) Stl P. shigelloides PCR Stl Shigella/EIEC PCR St Y.enterocolitica PCR Stool Vibrio (PCR) Stl Vibrio cholerae PCR Stl Norovirus GI/GII PCR SARS-CoV-2, RNA, NAAT Diagnostic Findings I personally reviewed and interpreted the CT scan and agree with the assessment of right-sided mild colitis. Also note to appendicoliths, one quite large with some dilation and wall thickening around the appendicoliths but no dilation or inflammation distal to this. There is also no periappendiceal inflammation. CT SCAN OF THE ABDOMEN AND PELVIS WITH IV CONTRAST CLINICAL HISTORY: Right lower quadrant abdominal pain. COMPARISON STUDY: No priors. TECHNIQUE: Following the IV administration of 86 cc of Optiray 320, CT scan of the abdomen and pelvis is performed from the lung bases to the proximal femora. Images are reviewed in the axial, sagittal, and coronal planes. IV contrast was administered without complication. A dose lowering technique was utilized adhering to the principles of ALARA. CT DOSE: 306.18 mGy.cm FINDINGS: Lung bases: The heart is normal in size and without pericardial effusion. The lung bases are clear. There is a small hernia. Liver: The contrast-enhanced liver is normal in size, contour, and attenuation. There is no intrahepatic biliary ductal dilatation. The hepatic veins and portal veins are patent. Gallbladder: Unremarkable. Spleen: Normal in size and attenuation. Pancreas: Unremarkable. Adrenal glands: Unremarkable. Kidneys: The contrast enhanced kidneys are normal in size and without hydronephrosis. The kidneys enhance symmetrically. Abdominal vasculature: The abdominal aorta is normal in course and caliber. Bowel: There is no bowel obstruction. There is mild wall thickening with pericolonic inflammation seen involving the right colon. This extends from the cecum to the hepatic flexure and atypical for a nonspecific colitis. The appendix is abnormal appearance, and contains large calcified appendicoliths which measure up to 17 mm. These are best seen on axial image #304). The appendix is dilated proximally measuring up to 14 mm and is mildly thick-walled. The distal appendix is normal in caliber and there is no significant periappendiceal inflammation. Peritoneum: No retroperitoneal free air is identified. Trace free fluid is seen in the pelvis. There is a small fat-containing umbilical hernia. Lymphadenopathy: Mildly enlarged mesenteric lymph nodes in the right lower quadrant measure up to 11 mm in short axis. Pelvic viscera: The bladder, prostate, and seminal vesicles are normal as visualized. A 1.6 cm epididymal cyst is suggested on the right. Skeletal structures: No lytic or blastic lesions are seen. IMPRESSION: 1. Findings are consistent with a nonspecific colitis of the right colon. This is likely on an infectious/inflammatory basis in this age group. Correlate clinically. 2. Abnormal appendix. The appendix is dilated and mildly thick walled, and conta ins several large calcified appendicoliths. There is no surrounding inflammation or definitive CT evidence of acute appendicitis at this time. Surgical assessment is advised. 3. Trace free fluid in pelvis and mildly enlarged right lower quadrant mesenteric lymph nodes are likely reactive findings. 4. Additional findings as above. PG Care Time/CCT Total # of Minutes Spent Total Time Spent with Patient: Total time spent is greater than 50% in coordination of care (as documented) at patient's floor/unit and/or counseling patient: Coding Level of Care Code 96300 OFFICE CONSULT LVL Diagnoses Colitis due to Salmonella species A02.0 Abdominal pain R10.31 Abdominal location: right lower quadrant Appendicolith K38.9 (2) Abdominal pain Abdominal location: right lower quadrant Qualified Code(s): R10.31 - Right lower quadrant pain
[2023-03-13] MEDS ORDERED: PANTOprazole 40 MG in SYRINGE 0 ML IV SCH (11:00)
[2023-03-13] MEDS ORDERED: MIRTAZAPINE TAB 15 MG TAB PO PRN (11:42)
[2023-03-13] MEDS ORDERED: SODIUM CHLORIDE 0.9% 1000ML 1,000 ML IV SCH (11:45)
[2023-03-13] MEDS ORDERED: CIPROFLOXACIN / D5W 400 MG/200 ML BAG IV SCH (12:00)
[2023-03-13] MEDS ORDERED: cefTRIAXone SODIUM 1,000 MG in DEXTROSE 5% AD-VAN 50 ML IV SCH (12:00)
[2023-03-13] MEDS ORDERED: ARIPIprazole 1 MG/ML ORAL SOLN 150 ML BTL PO SCH (21:00)
[2023-03-14] MEDS: metroNIDAZOLE 500 MG/100 ML BAG IV SCH (00:36)
[2023-03-14 06:13] LABS: Basophils # (auto) 0.06 K/uL (0-0.2); Basophils % (auto) 0.9 %; Eosinophils # (auto) 0.22 K/uL (0-0.50); Eosinophils % (auto) 3.4 %; Hematocrit (blood only) 40.5 % (42.0-52.0); Hemoglobin 13.9 g/dl (14.0-18.0); Immature Granulocytes # (auto) 0.03 K/uL (0.01-0.20); Immature Granulocytes % (auto) 0.5 %; Lymphocytes # (auto) 2.13 K/uL (1.2-3.4); Lymphocytes % (auto) 33.1 %; Mean Corpuscular Hemoglobin 29.4 pg (25.0-34.0); Mean Corpuscular Hgb Conc 34.3 g/dL (32.0-36.0); Mean Corpuscular Volume 85.6 fL (80.0-100.0); Mean Platelet Volume 9.2 fL (9.4-12.4); Monocytes # (auto) 0.72 K/uL (0.11-0.59); Monocytes % (auto) 11.2 %; Neutrophils # (auto) 3.27 K/uL (1.40-6.50); Neutrophils % (auto) 50.9 %; Platelet Count 243 K/uL (130-400); RDW Coefficient of Variation 12.1 % (11.5-14.5); Red Blood Count 4.73 M/uL (4.70-6.10); White Blood Count 6.43 K/ul (4.8-10.8)
[2023-03-14 06:32] LABS: BUN Creatinine Ratio 3.1 (10-20); Calcium 8.2 mg/dl (8.6-10.3); Creatinine Clr Calc Pharmacy 116.8 ml/min; Est GFR (African American) 129.5 ml/min; Est GFR (Non-African American) 111.8 ml/min; Magnesium 1.8 mg/dl (1.7-2.4); Potassium 3.7 mmol/L (3.5-5.1)
--- NOTE | 2023-03-14 06:45 | Discharge Summary ---
Date of Service March 14, 2023 Admission HPI Per Admitting Provider Pt is 23 yo M with PMH MDD, ADHD, PTSD presenting with diarrhea. Pt reports he ate a chicken dish from local establishment [employer] the evening of 03/03. He did eat at this restaurant multiple times in past without issue. Later that night he awoke with NBNB emesis. Since then, he experienced abdominal cramps, subjective fever, chills, body aches, nausea, reduced appetite and 10+ watery bowel movements per day. All symptoms resolved by 03/05 aside from abdominal cramps and diarrhea, which persist. He never experienced similar symptoms before. Denies recent travel or sick contacts, no recent antibiotic use. Pt arrived to ER hemodynamically stable. Initial evaluation significant for Na 133, stool PCR positive for salmonella. CTAP demonstrated nonspecific colitis of R colon, appendix dilation + wall thickening w/ several appendicoliths but no definitive evidence of acute appendicitis. ER interventions include Zofran, 1L NSS bolus, Toradol, ciprofloxacin/Flagyl IV. At present, pt reports continued abdominal pain of 2/10 severity due to receiving pain medication shortly prior. Denies any new symptoms. Admission Exam Per Admitting Provider General: well-appearing, no acute distress HEENT: PERRL, EOMI, conjunctivae clear without injection, anicteric sclerae, moist mucous membranes, clear oropharynx without exudate or erythema Neck: supple, trachea midline, no thyromegaly, no JVD, no cervical lymphadenopathy CV: RRR, normal S1 and S2, no murmurs Resp: CTAB, no increased work of breathing, no crackles or wheezes Abd: Soft, +mild periumbilical + RLQ tenderness, no McBurney point tenderness, nondistended, no guarding or rebound, no hepatosplenomegaly MSK: Normal bulk of all four extremities Neuro: AOx3, no focal motor or sensory deficits Skin: no rashes or lesions, warm and dry Ext: no LE peripheral edema or erythema, capillary refill <2s in all four extremities, 2+ LE peripheral pulses b/l Principal Diagnosis Salmonella Colitis Discharge Exam General: A&Ox3. NAD. Cooperative. HEENT: Atraumatic, normocephalic. Pulm: CTAB A&P. -wheezes, -rales, -rhonchi. Symmetrical chest rise. No increase work of breathing. No respiratory distress. Cardiac: RRR, -mrg. Radial pulses intact and symmetrical. Abdominal: soft, non-tender, non-distended, BS x 4 Skin: warm, dry, no rash Discharge Data Allergies Allergy/AdvReac Type Severity Reaction Status Date / Time No Known Allergies Allergy Verified 03/12/23 21:17 Consultations 03/12/23 23:27 ED Decision to Admit Stat 03/13/23 00:15 Consult General Surgery Routine 03/13/23 15:26 Consult KRISHNAG copyist Routine Ordered Studies 03/12/23 20:20 CT abd pelvis IV con only Stat Hospital Course (1) Colitis due to Salmonella species: 23-year-old male who presented to [facility] on 03/12 for evaluation of ongoing diarrhea and nausea x 10 days in the setting of consumption of chicken from a fast food establishment on 03/03, subsequently found to have evidence of nonspecific colitis on CT-A/P with a positive Salmonella PCR, alongside dilated and mildly thickened appendix with appendicoliths. He was hospitalized at [facility] from 03/12 - 03/14. Salmonella Colitis Presented with approx. 10 days of watery diarrhea (initially n/v) in the setting of recent chicken consumption from fast food establishment on 03/03 - Stool PCR positive for Salmonella with CTAP findings of nonspecific colitis - Was started on Ciprofloxacin/Flagyl IV on admission, which was downgraded to Ceftriaxone/Flagyl IV on 03/13 - abx stopped on 03/14, as patient's diarrhea improved and was able to tolerate fluids/solids without nausea/vomiting or worsening diarrhea - counseled on BRAT diet after discharge, until symptoms are resolving and can return to regular diet Appendiceal Dilation with Appendicoliths CT-A/P demonstrated mild dilation and wall thickening of the appendix with several large appendicoliths. No definitive e/o appendicitis. - Surgery consulted: Consider outpatient elective appendectomy in 6-8 weeks post-discharge (will need F/U appt) --> defer surgical referral to PCP (2) Abdominal pain: (3) Hyponatremia: (4) ADHD: (5) Post traumatic stress disorder (PTSD): (6) MDD (major depressive disorder), recurrent episode, severe: (7) GERD (gastroesophageal reflux disease): Total Time Total Time Spent Total Time Spent (In Minutes): 30 minutes Discharge Plan Discharge Items Patient Disposition: Home - Self-Care Reason For Visit: COLITIS, DIARRHEA Discharge Diagnosis: Salmonella Colitis Activity: Per Instructions section Non-emergency contact: Primary Care Provider and Surgeon Call non-emergency contact if: you have any medication questions, your symptoms worsen and you have a fever Follow-up/Referrals: [facility] [Primary Care Provider] - (please arrange for patient to see PCP in [place] within 1 week of discharge) Diet: Regular Addtl Attending Provider Instructions: You were seen at [facility] for evaluation of ongoing diarrhea and previously nausea. We discovered that this was likely due to a foodborne illness from Salmonella. This bacteria caused local inflammation (stress) of the large colon, which is responsible for transporting stool to the outside world. As a result of this infection, you became dehydrated. Hence, one of our main goals while you were here was to rehydrate you. We also ensured you were able to tolerate some food prior to leaving. Your belly scan (CT) also showed incidental enlargement of your appendix. Thankfully, this did not appear inflamed to suggest acute appendicitis. However, given its large size and potential for becoming inflamed in the future, we recommend you follow-up with General Surgery in approx. 6 weeks (end of April) to discuss elective removal of the appendix (appendectomy). You were briefly on antibiotics while this was being assessed, but [[ discontinued prior to discharge ?? ]] Moving forward, staying hydrated will be esparza. Aim to consume 2.5L + of hydrating (non caffeinated, non-alocholic) beverages a day. Gatorade and Poweraid can be helpful in this instance to replace blood salts you have lost through your diarrhea. We recommend, if you choose to consume these as part of your fluid goal, the normal-strength, NON-calorie free (aka regular) versions to help replete your nutrition stores. With regards to foods - start with things that are easy on the stomach: toast, rice, applesauce, bananas. As you feel ready, you can advance your diet. Like we discussed, start low and go slow -- don't eat too much too fast, as this can trigger that "stomach to colon" reflex which can further exacerbate diarrhea. However, expect some bumps in the road; the trend of improvement, not the speed, is what is desired. Please avoid using antidiarrheal medications like Imodium during this time - as we want the bacteria to clear, and these medications can slow that process down. We do recommend you take a probiotic (like Culturelle, which you can get OTC -- or its generics), 2 caps daily, for the next 1-2 weeks to help replete any lost healthy gut bacteria from your brief course of antibiotics. Please follow-up with your PCP in [facility] within 1-2 weeks. In the interim, if your diarrhea gets worse, you're starting to notice blood, you have fevers, chil ls, worsening nausea/vomiting, lightheadedness/dizziness -- please report back to the ER immediately for evaluation. Pending Studies at Discharge: No Stand-Alone Forms: [facility], Smoking Cessation Medications and DC Order Prescriptions: Continued bupropion HCl 100 mg tablet sustained-release 12 hr 100 mg PO QAM ondansetron 8 mg tablet,disintegrating 8 mg translingual DAILY PRN (Reason: Nausea) mirtazapine 15 mg tablet 15 mg PO HS PRN (Reason: Sleep) methylphenidate HCl 40 mg capsule,ER biphasic 50-50 40 mg PO DAILY aripiprazole 2 mg tablet 2 mg PO HS Discharge Orders: Discharge Order (Routine); Ordered 03/14/23 Ordered By: Avinash Veloz Admission Data Admit Date/Time: 03/13/23 00:15 Attending Provider: Michela Apodaca Admit Provider: Sharyn Badillo Primary Care Provider: [facility] Other Providers: Josesito Patino ; Abdirizak Baer ; Linus Ch ; Rich Gil ; Chris Roberto ; Hollie Corbett ; Shade Mora ; Jake Silva ; Darlene Mackenzie ; Chrissy Yu Other Interventions: Discharge Summary Assessment (RN) Last Done: 03/14/23 11:26 Supervising Physician Co-Signing Physician Notes Resident Physician Supervision Note: I independently interviewed and examined the patient and verified the esparza history and physical, reviewed labs and image studies and agree with resident findings and care plan. Resident Activity Tracking Resident Involvement: Resident Care Provided Care Provided: Adult [facility] Medicine
[2023-03-14] MEDS ORDERED: AMOXICILLIN/CLAVULANATE 875 MG TAB PO SCH (08:00)
[2023-03-14] MEDS: ADVANCED PROBIOTIC 1250 MG CAPSULE PO SCH (08:49)
[2023-03-14] MEDS ORDERED: buPROPion SR 100 MG TABCR PO SCH (09:00)
[2023-03-14] MEDS ORDERED: METHYLPHENIDATE HCL 40 MG PO SCH (09:00)
--- NOTE | 2023-03-14 09:31 | Surgery Progress Note ---
Date of Service March 14, 2023 Assessment & Plan (1) Colitis due to Salmonella species: Plan: Resolving Salmonella colitis, incidental appendicoliths No surgery indicated at this time Antibiotics per medicine Given size of appendicoliths, may consider elective appendectomy as an outpatient in 4 to 6 weeks. He may follow-up with me as an outpatient or with a surgeon [place] in [place]. (2) Appendicolith: Admission and Anticipated Discharge Date Admission Date: March 13, 2023 Subjective Admitted for Salmonella infection, incidental appendicoliths. Abdominal pain significantly improved, still having some loose stools. Physical Exam Constitutional: WD/WN, vitals as above Gastrointestinal (Abdomen): normal bowel sounds, soft, nontender, no hepatosplenomegaly Results & Data Vital Signs (Past 12 Hours) Vital Signs Temp Pulse Resp BP Pulse Ox O2 Del Method 03/14/23 09:24 Room Air 03/14/23 08:26 36.9 C 78 20 107/64 94 Room Air Laboratory Results Laboratory Results - last 24 hr 03/14/23 03/14/23 05:20 05:20 WBC 6.43 RBC 4.73 Hgb 13.9 L Hct 40.5 L MCV 85.6 MCH 29.4 MCHC 34.3 RDW Std Deviation 38.0 RDW Coeff of Emil 12.1 Plt Count 243 MPV 9.2 L Immature Gran % (Auto) 0.5 Neut % (Auto) 50.9 Lymph % (Auto) 33.1 [place] % (Auto) 11.2 Eos % (Auto) 3.4 Baso % (Auto) 0.9 Neut # (Auto) 3.27 Lymph # (Auto) 2.13 [place] # (Auto) 0.72 H Eos # (Auto) 0.22 Baso # (Auto) 0.06 Immature Gran # (Auto) 0.03 Sodium 139 Potassium 3.7 Chloride 106 Carbon Dioxide 28 Anion Gap 5 BUN 3 L Creatinine 0.96 Est Cr Clr Drug Dosing 116.8 Est GFR ( Amer) 129.5 Est GFR (Non-Af Amer) 111.8 BUN/Creatinine Ratio 3.1 L Glucose 90 Calcium 8.2 L Magnesium 1.8 PG Care Time/CCT Total # of Minutes Spent Total Time Spent with Patient: Total time spent is greater than 50% in coordination of care (as documented) at patient's floor/unit and/or counseling patient: Coding Level of Care Code 18245 SUB INP/OBS CARE Diagnoses Colitis due to Salmonella species A02.0 Appendicolith K38.9
== END 2023-03-14 12:00 | disposition home or self-care (01) ==
LOC: ED 19:39 → 3W 19:39 → SUATTDRO 03-13 00:15 → 3W 03-13 01:23